=== PATIENT | female | born 1990 | race Hispanic/Latino ===

== ENCOUNTER 2017-11-16 12:41 | Emergency (ER) | payer SELFPAY ==
--- NOTE | 2017-11-16 16:19 | ER ---
Nurse's Notes [facility] Name: Maria Isabel Johnson Age: 27 yrs Sex: Female : 1990 Arrival Date: 11/16/2017 Time: 12:44 Bed 12 Private MD: None, None Diagnosis: Acute upper respiratory infection, unspecified Presentation: 11/16 12:49 Presenting complaint: Patient states: Flu symptoms for 3 days. Transition of care: aj patient was not received from another setting of care. Onset of symptoms was November 13, 2017. Care prior to arrival: None. 12:49 Method Of Arrival: Ambulatory 12:49 Acuity: SOLITARIO 4 aj Triage Assessment: 12:50 General: Appears in no apparent distress. comfortable, Behavior is calm, cooperative, aj appropriate for age. Pain: Denies pain. EENT: Reports nasal congestion nasal discharge. Neuro: Level of Consciousness is awake, alert, obeys commands, Oriented to person, place, time, situation. Respiratory: Reports cough that is Airway is patent Respiratory effort is even, unlabored, Respiratory pattern is regular, symmetrical. Derm: Skin is intact, is healthy with good turgor, Skin is pink, warm \T\ dry. normal. 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 - Social history:: Smoking status: Patient/guardian denies using tobacco. - Family history:: not pertinent. - Hospitalizations: : No recent hospitalization is reported. Screenin:20 Abuse screen: Denies threats or abuse. Denies injuries from another. Nutritional iw screening: No deficits noted. Tuberculosis screening: No symptoms or risk factors identified. Fall Risk None identified. Assessment: 16:00 General: Appears Behavior is calm, cooperative. Pain:. Neuro: Level of Consciousness is iw awake, alert, obeys commands, Oriented to person, place, time, situation, Moves all extremities. Full function. Cardiovascular: Capillary refill < 3 seconds in bilateral fingers Patient's skin is warm and dry. Respiratory: Respiratory effort is even, unlabored, Respiratory pattern is regular, symmetrical. GI: Derm: Skin is pink, warm \T\ dry. normal. Musculoskeletal: Range of motion: intact in all extremities. Vital Signs: 12:50 BP 143 / 94; Pulse 76; Resp 20; Temp 98.2; Pulse Ox 99% on R/A; Weight 99.79 kg; Height aj 5 ft. 1 in. (154.94 cm); Pain 0/10; 12:50 Body Mass Index 41.57 (99.79 kg, 154.94 cm) aj ED Course: 12:44 Patient arrived in ED. mr 12:44 None, None is Private Physician. mr 12:50 Triage completed. aj 12:50 Arm band placed on left wrist. Patient placed in waiting room, Patient notified of wait aj time. 13:00 Patient has correct armband on for positive identification. iw 15:12 Kimmy Bob, RN is Primary Nurse. iw 15:12 Art aCrbajal MD is Attending Physician. rn 16:28 No provider procedures requiring assistance completed. Patient did not have IV access iw during this emergency room visit. Administered Medications: No medications were administered Outcome: 16:18 Discharge ordered by MD. rn 16:28 Discharged to home ambulatory. iw 16:28 Condition: good 16:28 Discharge instructions given to patient, Instructed on discharge instructions, follow up and referral plans. Demonstrated understanding of instructions, follow-up care. 16:29 Patient left the ED. iw Signatures: Radha Sellers, RN Flora Stephenson Kimmy Bob, RN GRETCHEN Art Carbajal MD MD office rn: (The following items were deleted from the chart) 12:56 12:50 BP 143 / 94; Pulse 76bpm; Resp 20bpm; Pulse Ox 99% RA; 99.79 kg; Height 5 ft. 1 aj in.; BMI: 41.5; Pain 0/10; aj
--- NOTE | 2017-11-16 16:19 | EDPHYS ---
Physician Documentation [facility] Name: Maria Isabel Johnson Age: 27 yrs Sex: Female : 1990 Arrival Date: 11/16/2017 Time: 12:44 Bed 12 Private MD: None, None ED Physician Art Carbajal HPI: 11/16 15:36 This 27 yrs old Female presents to ER via Ambulatory with complaints of Flu rn Symptoms. 15:36 The patient or guardian reports cough, that is intermittent, described as mild, with no rn sputum, flu symptoms, myalgias. Severity of symptoms: At their worst the symptoms were mild, in the emergency department the symptoms are unchanged. Modifying factors: The symptoms are alleviated by nothing, the symptoms are aggravated by nothing. The patient has not experienced similar symptoms in the past. The patient has not recently seen a physician. Reports subjective fever, sore throat, runny nose, ears aching, for 3-4 days. . 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 - Social history:: Smoking status: Patient/guardian denies using tobacco. - Family history:: not pertinent. - Hospitalizations: : No recent hospitalization is reported. 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 Exam: 15:36 Constitutional: This is a well developed, well nourished patient who is awake, alert, rn and in no acute distress. Head/Face: Normocephalic, atraumatic. Eyes: Pupils equal round and reactive to light, extra-ocular motions intact. Lids and lashes normal. Conjunctiva and sclera are non-icteric and not injected. Cornea within normal limits. Periorbital areas with no swelling, redness, or edema. ENT: + mild tonsillar hypertrophy without exudate, no stridor, no oral lesions Neck: Trachea midline, no thyromegaly or masses palpated, and no cervical lymphadenopathy. Supple, full range of motion without nuchal rigidity, or vertebral point tenderness. No Meningismus. Cardiovascular: Regular rate and rhythm with a normal S1 and S2. No gallops, murmurs, or rubs. Normal PMI, no JVD. No pulse deficits. Respiratory: Lungs have equal breath sounds bilaterally, clear to auscultation and percussion. No rales, rhonchi or wheezes noted. No increased work of breathing, no retractions or nasal flaring. Abdomen/GI: Soft, non-tender, with normal bowel sounds. No distension or tympany. No guarding or rebound. No evidence of tenderness throughout. Skin: Warm, dry with normal turgor. Normal color with no rashes, no lesions, and no evidence of cellulitis. MS/ Extremity: Pulses equal, no cyanosis. Neurovascular intact. Full, normal range of motion. Equal circumference. Neuro: Awake and alert, GCS 15, oriented to person, place, time, and situation. Cranial nerves II-XII grossly intact. Motor strength 5/5 in all extremities. Sensory grossly intact. Cerebellar exam normal. Normal gait. Vital Signs: 12:50 BP 143 / 94; Pulse 76; Resp 20; Temp 98.2; Pulse Ox 99% on R/A; Weight 99.79 kg; Height aj 5 ft. 1 in. (154.94 cm); Pain 0/10; 12:50 Body Mass Index 41.57 (99.79 kg, 154.94 cm) aj MDM: 15:12 Patient medically screened. rn 16:17 Differential Diagnosis: Bronchitis Influenza Upper Respiratory Infection Pharyngitis rn Viral Syndrome. Data reviewed: vital signs, nurses notes, lab test result(s), and as a result, I will discharge patient. Counseling: I had a detailed discussion with the patient and/or guardian regarding: the historical points, exam findings, and any diagnostic results supporting the discharge/admit diagnosis, lab results, the need for outpatient follow up, to return to the emergency department if symptoms worsen or persist or if there are any questions or concerns that arise at home. Special discussion: I discussed with the patient/guardian in detail that at this point there is no indication for admission to the hospital. It is understood, however, that if the symptoms persist or worsen the patient needs to return immediately for re-evaluation. ED course: Recommended afrin for viral syndrome/URI. 11/16 15:19 Order name: Flu rn 11/16 15:19 Order name: Strep rn 11/16 15:59 Order name: Influenza Screen (A ; Complete Time: 16:17 EDMS 11/16 15:59 Order name: Group A Streptococcus Rapid Sc; Complete Time: 16:17 EDMS Administered Medications: No medications were administered Disposition: 11/16/17 16:18 Discharged to Home. Impression: Acute upper respiratory infection, unspecified. - Condition is Stable. - Discharge Instructions: Upper Respiratory Infection, Adult, Viral Infections. - Work release form, Medication Reconciliation Form, Thank You Letter, Antibiotic Education, Prescription Opioid Use form. - Follow up: Private Physician; When: As needed; Reason: Recheck today's complaints, Re-evaluation by your physician. - Problem is new. - Symptoms have improved. Signatures: Dispatcher [employer] Radha Arango RN RN aj Williams, Irene, RN RN iw Nieto, Roman, MD MD rn
[2017-11-16 16:52] VITALS: BP 143/94; TEMP 98.2; O2SAT 99
== END 2017-11-16 16:29 | disposition home or self-care (01) ==
LOC: ER 12:41
DX: J06.9 Acute upper respiratory infection, unspecified (principal)
CPT/HCPCS: 87070; 87081; 87804; 99281

== ENCOUNTER 2018-03-23 20:30 | Emergency (ER) | payer SELFPAY ==
--- NOTE | 2018-03-23 20:59 | ER ---
Nurse's Notes [facility] Name: Maria Isabel Johnson Age: 27 yrs Sex: Female : 1990 Arrival Date: 03/23/2018 Time: 20:33 Bed 14 Private MD: None, None Diagnosis: Cellulitis of left external ear Presentation: 03/23 20:45 Presenting complaint: Patient states: left ear pain X1 week after swimming. pt took ak1 amoxicillin with no relief. Transition of care: patient was not received from another setting of care. Onset of symptoms is unknown. Risk Assessment: Do you want to hurt yourself or someone else? Patient reports no desire to harm self or others. Care prior to arrival: None. 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 - Social history:: Smoking status: Patient uses tobacco products, denies chronic smoking, but will smoke occasionally. - Ebola Screening: : No symptoms or risks identified at this time. Screenin:55 Abuse screen: Denies threats or abuse. Denies injuries from another. Nutritional aa1 screening: No deficits noted. Tuberculosis screening: No symptoms or risk factors identified. Fall Risk None identified. Assessment: 20:55 General: Appears in no apparent distress. comfortable, Behavior is calm, cooperative, aa1 appropriate for age. Pain: Complains of pain in left ear Pain began 1 week ago Is continuous. Neuro: Level of Consciousness is awake, alert, obeys commands, Oriented to person, place, time, situation, Gait is steady, Speech is normal. Respiratory: Airway is patent Respiratory effort is even, unlabored, Respiratory pattern is regular, symmetrical. GI: No signs and/or symptoms were reported involving the gastrointestinal system. : No signs and/or symptoms were reported regarding the genitourinary system. EENT: Reports pain in left ear. Derm: Skin is intact, is healthy with good turgor, Skin is pink, warm \T\ dry. Musculoskeletal: Circulation, motion, and sensation intact. Capillary refill < 3 seconds. 21:04 Reassessment: Patient appears in no apparent distress at this time. Patient is alert, aa1 oriented x 3, equal unlabored respirations, skin warm/dry/pink. Discussed d/c \T\ f/u instructions with pt; denies questions or concerns at this time. Vital Signs: 20:44 BP 146 / 97; Pulse 77; Resp 18; Temp 98.5(O); Pulse Ox 100% on R/A; Weight 122.47 kg ak1 (R); Height 5 ft. 1 in. (154.94 cm) (R); Pain 10/10; 20:44 Body Mass Index 51.02 (122.47 kg, 154.94 cm) ak1 ED Course: 20:33 Patient arrived in ED. es 20:33 None, None is Private Physician. es 20:45 Triage completed. ak1 20:46 Arm band placed on Patient placed in an exam room, on a stretcher, Patient notified of ak1 wait time. 20:47 Samir Templeton NP is PHCP. pm1 20:47 Chicho Riojas MD is Attending Physician. pm1 20:55 Patient has correct armband on for positive identification. Bed in low position. Call aa1 light in reach. Pulse ox on. NIBP on. 20:59 Capri Jo, GRETCHEN is Primary Nurse. aa1 20:59 Ree Hester MD is Referral Physician. pm1 21:04 No provider procedures requiring assistance completed. Patient did not have IV access aa1 during this emergency room visit. Administered Medications: No medications were administered Outcome: 20:59 Discharge ordered by . pm1 21:04 Discharged to home ambulatory. aa1 21:04 Condition: good 21:04 Discharge instructions given to patient, Instructed on discharge instructions, follow up and referral plans. medication usage, Demonstrated understanding of instructions, follow-up care, medications, Prescriptions given X 2. 21:07 Patient left the ED. aa1 Signatures: Capri Jo, RN RN aa1 Sophia Simon Amber, RN RN ak1 Samir Templeton, JONG SAILMAKER pm1
--- NOTE | 2018-03-23 20:59 | EDPHYS ---
Physician Documentation [facility] Name: Maria Isabel Johnson Age: 27 yrs Sex: Female : 1990 Arrival Date: 03/23/2018 Time: 20:33 Bed 14 Private MD: None, None ED Physician Chicho Riojas HPI: 03/23 20:54 This 27 yrs old Female presents to ER via Ambulatory with complaints of Left pm1 Ear Pain. 20:54 The patient presents with pain. The complaints affect the left ear. Onset: The pm1 symptoms/episode began/occurred 1 week(s) ago. Modifying factors: The symptoms are alleviated by nothing, the symptoms are aggravated by pulling on ears, touching. Associated signs and symptoms: Pertinent negatives: fever, tinnitus, Hearing difficulty. Severity of symptoms: in the emergency department the symptoms are worse. The patient has not experienced similar symptoms in the past. The patient has not recently seen a physician, and does not have an established primary care provider. Patient has been taking antibiotic given to her by her grandmother. patient took PCN without improvement. 20:54 Onset after swimming at the beach. 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 - Social history:: Smoking status: Patient uses tobacco products, denies chronic smoking, but will smoke occasionally. - Ebola Screening: : No symptoms or risks identified at this time. ROS: 20:54 Constitutional: Negative for fever, chills, and weight loss, Eyes: Negative for injury, pm1 pain, redness, and discharge. 20:54 Neck: Negative for injury, pain, and swelling, Cardiovascular: Negative for chest pain, palpitations, and edema, Respiratory: Negative for shortness of breath, cough, wheezing, and pleuritic chest pain, Abdomen/GI: Negative for abdominal pain, nausea, vomiting, diarrhea, and constipation, Back: Negative for injury and pain, MS/Extremity: Negative for injury and deformity, Skin: Negative for injury, rash, and discoloration, Neuro: Negative for headache, weakness, numbness, tingling, and seizure. 20:54 ENT: Positive for ear pain, Negative for drainage from ear(s), hearing loss, rhinorrhea, sore throat. Exam: 20:54 Constitutional: This is a well developed, well nourished patient who is awake, alert, pm1 and in no acute distress. Head/Face: Normocephalic, atraumatic. Eyes: Pupils equal round and reactive to light, extra-ocular motions intact. Lids and lashes normal. Conjunctiva and sclera are non-icteric and not injected. Cornea within normal limits. Periorbital areas with no swelling, redness, or edema. 20:54 Neck: Trachea midline, no thyromegaly or masses palpated, and no cervical lymphadenopathy. Supple, full range of motion without nuchal rigidity, or vertebral point tenderness. No Meningismus. Chest/axilla: Normal chest wall appearance and motion. Nontender with no deformity. No lesions are appreciated. Cardiovascular: Regular rate and rhythm with a normal S1 and S2. No gallops, murmurs, or rubs. Normal PMI, no JVD. No pulse deficits. Respiratory: Lungs have equal breath sounds bilaterally, clear to auscultation and percussion. No rales, rhonchi or wheezes noted. No increased work of breathing, no retractions or nasal flaring. Back: No spinal tenderness. No costovertebral tenderness. Full range of motion. MS/ Extremity: Pulses equal, no cyanosis. Neurovascular intact. Full, normal range of motion. 20:54 ENT: External ear(s): abscess, is not appreciated, cellulitis, of the posterior aspect of the pinna of left ear, Ear canal(s): are normal, cerumen impaction, TM's: not visable, because of cerumen, left ear, Examination of the other ear shows no obvious abnormality, Mouth: is normal, no acute changes, Posterior pharynx: is normal, airway is patent, no acute changes, Tonsils: are normal in appearance. 20:54 Skin: Appearance: normal except for affected area, left ear as noted above. 20:54 Neuro: Orientation: is normal, Motor: moves all fours. Vital Signs: 20:44 BP 146 / 97; Pulse 77; Resp 18; Temp 98.5(O); Pulse Ox 100% on R/A; Weight 122.47 kg ak1 (R); Height 5 ft. 1 in. (154.94 cm) (R); Pain 10/10; 20:44 Body Mass Index 51.02 (122.47 kg, 154.94 cm) ak1 MDM: 20:48 Patient medically screened. pm1 20:58 Data reviewed: vital signs. Data interpreted: Pulse oximetry: on room air is 100 %. pm1 Interpretation: normal. Counseling: I had a detailed discussion with the patient and/or guardian regarding: the historical points, exam findings, and any diagnostic results supporting the discharge/admit diagnosis, the need for outpatient follow up, to return to the emergency department if symptoms worsen or persist or if there are any questions or concerns that arise at home. 20:58 Differential diagnosis: otitis media, otitis externa, foreign body, cerumen impaction. pm1 21:01 ED course: Onset after swimming at the beach. Will discharge with doxycycline for pm1 vibrio and MRSA coverage. Administered Medications: No medications were administered Disposition: 22:21 Co-signature as Attending Physician, Chicho Riojas MD. flor Disposition: 03/23/18 20:59 Discharged to Home. Impression: Cellulitis of left external ear. - Condition is Stable. - Discharge Instructions: Cellulitis, Adult. - Prescriptions for Tylenol- Codeine #3 300-30 mg Oral Tablet - take 2 tablets by ORAL route every 6 hours As needed; 20 tablet. Doxycycline Hyclate 100 mg Oral Tablet - take 1 tablet by ORAL route every 12 hours; 20 tablet. - Medication Reconciliation Form, Thank You Letter, Antibiotic Education, Prescription Opioid Use form. - Follow up: Emergency Department; When: As needed; Reason: Worsening of condition. Follow up: Ree Hester MD; When: 2 - 3 days; Reason: Recheck today's complaints, Continuance of care, Re-evaluation by your physician. - Problem is new. - Symptoms have improved. Signatures: Capri Jo RN RN aa1 Chicho Riojas MD MD pkLucy Chapman RN RN ak1 Samir Templeton, LEAD CARGO MOVER LEAD CARGO MOVER pm1 Corrections: (The following items were deleted from the chart) 21:07 20:59 03/23/2018 20:59 Discharged to Home. Impression: Cellulitis of left external ear. aa1 Condition is Stable. Forms are Medication Reconciliation Form, Thank You Letter, Antibiotic Education, Prescription Opioid Use. Follow up: Emergency Department; When: As needed; Reason: Worsening of condition. Follow up: Ree Hester; When: 2 - 3 days; Reason: Recheck today's complaints, Continuance of care, Re-evaluation by your physician. Problem is new. Symptoms have improved. pm1
[2018-03-23 21:12] VITALS: BP 146/97; TEMP 98.5; O2SAT 100
== END 2018-03-23 21:07 | disposition home or self-care (01) ==
LOC: ER 20:30
DX: H60.12 Cellulitis of left external ear (principal); Z72.0 Tobacco use
CPT/HCPCS: 99283

== ENCOUNTER 2018-05-06 01:38 | Emergency (ER) | payer SELFPAY ==
--- NOTE | 2018-05-06 01:59 | EDPHYS ---
Physician Documentation [facility] Name: Maria Isabel Johnson Age: 27 yrs Sex: Female : 1990 Arrival Date: 05/06/2018 Time: 01:40 Bed 7 Private MD: ED Physician Art Carbajal HPI: 05/06 01:56 This 27 yrs old Female presents to ER via Ambulatory with complaints of Leg jr8 Swelling, Tattoo infection. 01:56 Patient had tattoo done on Thursday. Now having erythema and swelling around tattoo jr8 extending down leg . Onset: The symptoms/episode began/occurred gradually, 2 day(s) ago. Severity of symptoms: At their worst the symptoms were moderate in the emergency department the symptoms are unchanged. The patient has not experienced similar symptoms in the past. The patient has not recently seen a physician. STAFFING RN: 01:56 LMP 05/01/2018 lp1 Historical: - Allergies: 01:56 NKA; lp1 - Home Meds: 01:56 None [Active]; lp1 - PMHx: 01:56 None; lp1 - PSHx: 01:56 None; lp1 - Immunization history:: Adult Immunizations up to date. - Social history:: Smoking status: Patient/guardian denies using tobacco. - Ebola Screening: : No symptoms or risks identified at this time. ROS: 01:56 Eyes: Negative for injury, pain, redness, and discharge, ENT: Negative for injury, jr8 pain, and discharge, Neck: Negative for injury, pain, and swelling, Cardiovascular: Negative for chest pain, palpitations, and edema, Respiratory: Negative for shortness of breath, cough, wheezing, and pleuritic chest pain, Abdomen/GI: Negative for abdominal pain, nausea, vomiting, diarrhea, and constipation, Back: Negative for injury and pain, MS/Extremity: Negative for injury and deformity, Neuro: Negative for headache, weakness, numbness, tingling, and seizure. 01:56 Skin: Positive for cellulitis, erythema, of the left lateral leg near ankle . Exam: 01:56 Cardiovascular: Regular rate and rhythm with a normal S1 and S2. No gallops, murmurs, jr8 or rubs. Normal PMI, no JVD. No pulse deficits. Respiratory: Lungs have equal breath sounds bilaterally, clear to auscultation and percussion. No rales, rhonchi or wheezes noted. No increased work of breathing, no retractions or nasal flaring. Back: No spinal tenderness. No costovertebral tenderness. Full range of motion. MS/ Extremity: Pulses equal, no cyanosis. Neurovascular intact. Full, normal range of motion. Neuro: Awake and alert, GCS 15, oriented to person, place, time, and situation. Cranial nerves II-XII grossly intact. Motor strength 5/5 in all extremities. Sensory grossly intact. Cerebellar exam normal. Normal gait. 01:56 Skin: Patient has erythema around tattoo. Erythema and swelling extends into lateral ankle and proximal foot . Vital Signs: 01:56 BP 138 / 96; Pulse 72; Resp 18; Temp 97(TE); Pulse Ox 99% on R/A; Weight 122.47 kg; lp1 Height 5 ft. 1 in. (154.94 cm); Pain 7/10; 01:56 Body Mass Index 51.02 (122.47 kg, 154.94 cm) lp1 MDM: 01:47 Patient medically screened. jr8 01:56 Data reviewed: vital signs, nurses notes, and as a result, I will discharge patient. jr8 Data interpreted: Pulse oximetry: on room air is 100 %. Interpretation: normal. Counseling: I had a detailed discussion with the patient and/or guardian regarding: the historical points, exam findings, and any diagnostic results supporting the discharge/admit diagnosis, the need for outpatient follow up, a family practitioner, to return to the emergency department if symptoms worsen or persist or if there are any questions or concerns that arise at home. 05/06 01:59 Order name: Wound Culture jr8 Administered Medications: No medications were administered Disposition: 04:49 Co-signature as Attending Physician, Art Carbajal MD. rn Disposition: 05/06/18 01:59 Discharged to Home. Impression: Cellulitis of left lower limb. - Condition is Stable. - Discharge Instructions: Cellulitis, Adult. - Prescriptions for Bactrim DS 800- 160 mg Oral Tablet - take 1 tablet by ORAL route every 12 hours for 10 days; 20 tablet. Doxycycline Monohydrate 100 mg Oral Tablet - take 1 tablet by ORAL route every 12 hours for 10 days; 20 tablet. - Medication Reconciliation Form, Thank You Letter, Antibiotic Education, Prescription Opioid Use form. - Follow up: Private Physician; When: 2 - 3 days; Reason: Wound Recheck, If symptoms return, Recheck today's complaints, Continuance of care, Re-evaluation by your physician. - Problem is new. - Symptoms have improved. Signatures: Dispatcher [employer] EDMS Art Carbajal MD MD rn Krystin Kan RN RN lp1 Rafy Kirk PA PA jr8 Corrections: (The following items were deleted from the chart) 02:05 01:59 05/06/2018 01:59 Discharged to Home. Impression: Cellulitis of left lower limb. lp1 Condition is Stable. Forms are Medication Reconciliation Form, Thank You Letter, Antibiotic Education, Prescription Opioid Use. Follow up: Private Physician; When: 2 - 3 days; Reason: Wound Recheck, If symptoms return, Recheck today's complaints, Continuance of care, Re-evaluation by your physician. Problem is new. Symptoms have improved. jr8
--- NOTE | 2018-05-06 01:59 | ER ---
Nurse's Notes [facility] Name: Maria Isabel Johnson Age: 27 yrs Sex: Female : 1990 Arrival Date: 05/06/2018 Time: 01:40 Bed 7 Private MD: Diagnosis: Cellulitis of left lower limb Presentation: 05/06 01:54 Presenting complaint: Patient states: Had tattoo done on Thursday night in [place] lp1 to left ankle; States pain and increased swelling to ankle since; Denies any fever. Transition of care: patient was not received from another setting of care. Onset of symptoms was May 06, 2018. Risk Assessment: Do you want to hurt yourself or someone else? Patient reports no desire to harm self or others. Initial Sepsis Screen: Does the patient meet any 2 criteria? No. Patient's initial sepsis screen is negative. Does the patient have a suspected source of infection? No. Patient's initial sepsis screen is negative. Care prior to arrival: None. 01:54 Method Of Arrival: Ambulatory lp1 01:54 Acuity: SOLITARIO 4 lp1 FOIL OPERATOR: 01:56 LMP 05/01/2018 lp1 Historical: - Allergies: 01:56 NKA; lp1 - Home Meds: 01:56 None [Active]; lp1 - PMHx: 01:56 None; lp1 - PSHx: 01:56 None; lp1 - Immunization history:: Adult Immunizations up to date. - Social history:: Smoking status: Patient/guardian denies using tobacco. - Ebola Screening: : No symptoms or risks identified at this time. Screenin:00 Abuse screen: Denies threats or abuse. Denies injuries from another. Nutritional lp1 screening: No deficits noted. Tuberculosis screening: No symptoms or risk factors identified. Fall Risk None identified. Assessment: 01:57 General: Appears in no apparent distress. Behavior is calm, cooperative, appropriate lp1 for age. Pain: Complains of pain in left lateral ankle Pain currently is 7 out of 10 on a pain scale. Neuro: Level of Consciousness is awake, alert, obeys commands. Cardiovascular: No deficits noted. Respiratory: No deficits noted. GI: No deficits noted. : No deficits noted. EENT: No deficits noted. Derm: Wound noted left lateral ankle Wound is redness, swelling, and drainage around site. Musculoskeletal: Circulation, motion, and sensation intact. Vital Signs: 01:56 BP 138 / 96; Pulse 72; Resp 18; Temp 97(TE); Pulse Ox 99% on R/A; Weight 122.47 kg; lp1 Height 5 ft. 1 in. (154.94 cm); Pain 7/10; 01:56 Body Mass Index 51.02 (122.47 kg, 154.94 cm) lp1 ED Course: 01:40 Patient arrived in ED. am2 01:47 [facility] jr8 01:47 Art Carbajal MD is Attending Physician. jr8 01:54 Krystin Kan, RN is Primary Nurse. lp1 01:56 Triage completed. lp1 01:57 Arm band placed on right wrist. lp1 02:01 Patient has correct armband on for positive identification. lp1 02:01 No provider procedures requiring assistance completed. Patient did not have IV access lp1 during this emergency room visit. Administered Medications: No medications were administered Outcome: 01:59 Discharge ordered by . jr8 02:04 Discharged to home ambulatory. lp1 02:04 Condition: good 02:04 Discharge instructions given to patient, Instructed on discharge instructions, follow up and referral plans. medication usage, Demonstrated understanding of instructions, follow-up care, medications, Prescriptions given X 2. 02:05 Patient left the ED. lp1 Addendum: 05/10/2018 07:53 Addendum: Culture Results: Positive wound culture. No further action required. Bacteria i w sensitive to prescribed antibiotic. Signatures: Kimmy Bob RN RN Krystin Kan RN RN lp Rafy Kirk PA PA jr Radha Briseno am2
[2018-05-06 02:10] VITALS: BP 138/96; TEMP 97; O2SAT 99
== END 2018-05-06 02:05 | disposition home or self-care (01) ==
LOC: ER 01:38
DX: L03.116 Cellulitis of left lower limb (principal)
CPT/HCPCS: 87070; 87077; 87186; 87205; 99282

== ENCOUNTER 2018-05-30 16:08 | Inpatient (IN) | payer SELFPAY ==
[2018-05-30] MEDS ORDERED: RSI MEDICATION KIT IV ONE (16:16)
[2018-05-30] MEDS ORDERED: SUCCINYLCHOLINE 20 MG/ML (10 ML) IV ONE (16:21)
[2018-05-30] MEDS ORDERED: LORazepam 2 MG/ML VIAL ONE (16:30)
[2018-05-30] MEDS ORDERED: PROPOFOL 1,000 MG/100 ML VIAL IV ONE (16:47)
[2018-05-30] MEDS ORDERED: VECURONIUM 10 MG/VIAL IV ONE (16:48)
[2018-05-30] MEDS ORDERED: ALBUTEROL 2.5 MG/3 ML NEB SOL ONE (16:55)
[2018-05-30] MEDS ORDERED: IPRATROPIUM BROM 0.5MG/2.5ML ONE (16:55)
[2018-05-30 16:58] LABS: Protime INR 1.07
--- NOTE | 2018-05-30 17:02 | RAD REPORT ---
EXAM DESCRIPTION: RAD - Chest Single View - 05/30/2018 4:55 pm CLINICAL HISTORY: POST ETT Chest pain. COMPARISON: ABDOMEN 1 VIEW KUB dated 09/09/2012 FINDINGS: Portable technique limits examination quality. The tip of the ET tube is in the right mainstem bronchus. Left lung atelectasis is present. Cardiac s ize is not well assessed. IMPRESSION: Right mainstem intubation.
--- NOTE | 2018-05-30 17:03 | RAD REPORT ---
EXAM DESCRIPTION: RAD - Chest Single View - 05/30/2018 4:55 pm CLINICAL HISTORY: et tube placement Chest pain. COMPARISON: Chest Single View dated 05/30/2018; ABDOMEN 1 VIEW KUB dated 09/09/2012 FINDINGS: Portable technique limits examination quality. The ET tube has been retracted somewhat but is still within the right mainstem bronchus. NG tube coil s in the stomach. Significant atelectasis involving the left lung. Cardiac size not well assessed. No displaced fractures.
[2018-05-30 17:04] LABS: Absolute Lymphocytes (CBC) 3.3 K/uL (0.7-4.9); Absolute Monocytes 1.3 K/uL (0.1-1.3); Absolute Neutrophil 12.1 K/uL (1.8-8.0); Basophils % 0.2 % (0-1.3); Eosinophils % 0.3 % (0-4.4); Hematocrit 42.1 % (36.0-45.0); Lymphocytes % 19.5 % (15.3-44.8); MCH 32.6 pg (27.0-35.0); MCV 95.2 fL (80-100); RBC Red Blood Cell Count 4.42 M/uL (3.86-4.86)
[2018-05-30 17:23] LABS: ALT/SGPT 29 U/L (12-78); AST/SGOT 13 U/L (15-37); Albumin 3.8 g/dL (3.4-5.0); Alkaline Phosphatase 93 U/L (45-117); BUN Blood Urea Nitrogen 17 mg/dL (7-18); Bicarbonate 27 mmol/L (21-32); Bilirubin Direct < 0.1 mg/dL (0-0.2); Bilirubin Total 0.3 mg/dL (0.2-1.0); Glucose Level 113 mg/dL (74-106); Potassium 4.1 mmol/L (3.5-5.1); Protein, Total 8.4 g/dL (6.4-8.2); Sodium Level 141 mmol/L (136-145)
[2018-05-30 17:36] LABS: Barbiturates NEGATIVE (NEGATIVE); Benzodiazepines NEGATIVE (NEGATIVE); Cocaine NEGATIVE (NEGATIVE); METHAMPHETAM NEGATIVE (NEGATIVE); Methadone NEGATIVE (NEGATIVE); Opiates NEGATIVE (NEGATIVE); Phencyclidine NEGATIVE (NEGATIVE); THC Cannibis POSITIVE (NEGATIVE)
--- NOTE | 2018-05-30 17:45 | RAD REPORT ---
EXAM DESCRIPTION: CT - Head Brain Wo Cont - 05/30/2018 5:39 pm CLINICAL HISTORY: unresponsive, OD Drowsiness COMPARISON: <Comparisons> TECHNIQUE: All CT scans are performed using dose optimization technique as appropriate and may inclu de automated exposure control or mA/KV adjustment according to patient size. FINDINGS: No intracranial hemorrhage, hydrocephalus or extra-axial fluid collection.No areas of brai n edema or evidence of midline shift. The paranasal sinuses and mastoids are clear. The calvarium is intact. Nasogastric tube noted. IMPRESSION: No acute intracranial abnormality.
[2018-05-30 18:01] LABS: Arterial Blood Carboxyhemoglob 0.9 % (0-1.5); Blood Gas Oxyhemoglobin 90.9 % (94-97); Blood O2 Saturation 92.6 % (92-98.5)
--- NOTE | 2018-05-30 18:04 | ER ---
Nurse's Notes [facility] Name: Maria Isabel Johnson Age: 27 yrs Sex: Female : 1990 Arrival Date: 05/30/2018 Time: 16:20 Bed 3 Private MD: Diagnosis: Poisoning by unspecified drugs primarily affecting the autonomic nervous system, intentional self-harm;Acute respiratory failure Presentation: 05/30 16:10 Presenting complaint: EMS states: Patient's boyfriend reports that patient took an aj unknown number or sleeping pills or muscle relaxers. Last seen normal at 1320 by mother. Patient was unresponsive with relax respiartions upon EMS arrival. Onset of symptoms is unknown. Care prior to arrival: Medication(s) given: Narcan 2mg IVP IV initiated. 20 GA, in the left antecubital area, Glucose check: 168 Oxygen administered. via AMBU bag. 16:26 Transition of care: patient was not received from another setting of care. Initial aj Sepsis Screen: Does the patient meet any 2 criteria? No. Patient's initial sepsis screen is negative. Does the patient have a suspected source of infection? No. Patient's initial sepsis screen is negative. 16:26 Method Of Arrival: EMS: [facility] 16:26 Acuity: SOLITARIO 1 aj 17:15 Risk Assessment: Do you want to hurt yourself or someone else? Other: Patient's family aj reported to physician that they believe this was a suicide attempt. Triage Assessment: 16:10 General: Appears obese, Behavior is unresponsive. Pain: Unable to use pain scale. aj Patient is unresponsive. Neuro: Level of Consciousness is unresponsive, Oriented to none Reaction to noxious stimuli is withdrawal. Respiratory: Airway is compromised Respiratory effort is relaxed, Respiratory pattern is hypoventilation the patient has severe shortness of breath. 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 Derm: Skin is intact, is healthy with good turgor, Skin is pink, warm \T\ dry. normal. Historical: - Allergies: 16:29 NKA; aj - PSHx: 16:29 None; aj - Immunization history:: Adult Immunizations unknown. - Social history:: Smoking status: unknown. - Ebola Screening: : Patient negative for fever greater than or equal to 101.5 degrees Fahrenheit, and additional compatible Ebola Virus Disease symptoms Patient denies exposure to infectious person Patient denies travel to an Ebola-affected area in the 21 days before illness onset No symptoms or risks identified at this time. Screenin:10 Abuse screen: Denies threats or abuse. Denies injuries from another. aj 17:18 Nutritional screening: unable to assess at this time, pt intubated, appears overweight. la1 Tuberculosis screening: unable to assess at this time, pt intubated. Fall Risk No secondary diagnosis (0 pts). IV access (20 points). Ambulatory Aid- None/Bed Rest/Nurse Assist (0 pts). Gait- Normal/Bed Rest/Wheelchair (0 pts) Total Castillo Fall Scale indicates Low Risk Score (25-44 pts). Side Rails Up X 2. Assessment: 16:15 Reassessment: No changes from previously documented assessment. aj 16:38 Reassessment: Family stated to registration that they believe the patient took Baclofen.aj 17:10 Reassessment: No changes from previously documented assessment. aj 18:10 Reassessment: Boyfriend is at bedside speaking with Dr Obregon. aj 19:45 Reassessment: No changes from previously documented assessment. aj Vital Signs: 16:08 BP 131 / 70; Pulse 46; Resp 18 A; Pulse Ox 82% on BVM; Weight 102.06 kg; Height 5 ft. 8 aj in. (172.72 cm); 16:12 BP 131 / 70; Pulse 39; Resp 18; Pulse Ox 98% on BVM; aj 16:17 BP 165 / 105; Pulse 86; Resp 18; Pulse Ox 86% on ETT ambu; aj 16:20 BP 146 / 98; Pulse 91; Resp 16 A; Pulse Ox 90% on ETT ambu; aj 17:10 BP 102 / 66; Pulse 75; Resp 16; Temp 93.9(C); Pulse Ox 100% on ETT vent; aj 17:26 BP 132 / 66; Pulse 64; Resp 16; Temp 94.4(C); Pulse Ox 100% on ETT vent; aj 17:43 BP 114 / 72; Pulse 72; Resp 16 A; Temp 94.5; Pulse Ox 100% on ETT vent; aj 18:11 BP 99 / 67; Pulse 56; Resp 16; Temp 94.7; Pulse Ox 100% on ETT vent; aj 18:13 BP 102 / 75; Pulse 56; Resp 16; Pulse Ox 100% on ETT vent; aj 18:32 BP 100 / 70; Pulse 54; Resp 16; Temp 94.9; Pulse Ox 100% on ETT vent; aj 18:57 BP 103 / 64; Pulse 53; Resp 16; Temp 95.3; Pulse Ox 100% on ETT vent; aj 19:20 BP 116 / 74; Pulse 82; Resp 16; Temp 95.7; Pulse Ox 100% on ETT vent; aj 16:08 Body Mass Index 34.21 (102.06 kg, 172.72 cm) aj Keo Coma Score: 16:07 Eye Response: none(1). Verbal Response: none(1). Motor Response: none(1). Total: 3. aj ED Course: 16:07 Suctioned orally Placed oral airway: Assist ventilation with Ambu bag. aj 16:10 Arm band placed on right wrist. Patient placed in an exam room. aj 16:15 Inserted saline lock: 20 gauge in right antecubital area, using aseptic technique. aj Blood collected. By JPB. 16:17 Assisted provider with intubation using 7.5 mm ETT via oral route. ET tube secured at aj 23cm at the teeth. Set up intubation tray. Intubated by Konstantin Nunn MD Placement verified by CXR, CO2 detector w/ + color change, auscultating bilateral breath sounds. 16:20 Patient arrived in ED. em 16:23 Radha Sellers, RN is Primary Nurse. aj 16:25 Konstantin Nunn MD is Private Physician. rh1 16:26 Konstantin Nunn MD is Attending Physician. rh1 16:29 Triage completed. aj 16:50 Initial lab(s) drawn, by ct, sent to lab. EKG done, by ED staff, reviewed by Konstantin Nunn MD. 16:55 CXR XRAY In Process Unspecified. EDMS 16:56 XRAY CXR (1 view) In Process Unspecified. EDMS 17:13 Urine collected: Quigley catheter specimen, cloudy, jennifer colored. jb1 17:16 Placed in gown. Bed in low position. Call light in reach. Side rails up X2. Cardiac la1 monitor on. Pulse ox on. NIBP on. 17:16 NGT: inserted 16 Fr. via right nare. verified placement of air over stomach, verified la1 return of gastric contents, Placement verified by X-ray, to intermittent suction. Patient tolerated well. 17:19 Large amount of BM cleaned from patient. aj 17:39 CT Head Brain wo Cont In Process Unspecified. EDMS 17:43 CT completed. Pt tolerated procedure poorly. Patient moved to CT via stretcher. Patient eh moved back from CT. 17:55 XRAY CXR (1 view) In Process Unspecified. EDMS 18:00 Lalitha Obregon MD is Hospitalizing Provider. 19:45 Report given to Maria GODINEZ. aj 19:45 Patient admitted, IV remains in place. intact. aj Administered Medications: 16:12 Drug: Atropine 0.5 mg Route: IVP; Site: left antecubital; aj 17:17 Follow up: Response: HR increased la1 16:13 Drug: Atropine 0.5 mg Route: IVP; Site: left antecubital; aj 17:16 Follow up: Response: HR increased la1 16:15 Drug: Succinylcholine 120 mg Route: IVP; Site: left antecubital; aj 17:17 Follow up: Response: Pt sedated la1 16:26 Drug: Ativan 1 mg Route: IVP; Site: left antecubital; aj 17:17 Follow up: Response: No adverse reaction; Pt sedated la1 16:44 Drug: VecuroNIUM 10 mg Route: IVP; Site: right antecubital; aj 17:17 Follow up: Response: Pt paralyzed la1 16:45 Drug: Propofol 8 mcg/kg/min Route: IV; Rate: calculated rate; Site: right antecubital; la1 19:48 Follow up: IV Status: Infusion continued upon admission aj 16:55 Drug: Albuterol - atroVENT (3:1) (2.5 mg - 0.5 mg) 3 ml Route: Nebulizer; aj 17:17 Follow up: Response: No adverse reaction la1 19:15 Drug: Atropine 0.5 mg Route: IVP; Site: right antecubital; aj 19:48 Follow up: Response: Cardiac rhythm changed aj Outcome: 18:03 Decision to Hospitalize by Provider. 19:45 Admitted to ICU accompanied by nurse, accompanied by tech, via stretcher, room 3, with aj oxygen, on monitor, with chart, Report called to Maria GODINEZ 19:45 critical 19:45 Instructed on the need for admit. 19:49 Patient left the ED. aj Signatures: Dispatcher [employer] Pranav Teran jb1 Radha Sellers RN RN Kumar Berger Edgar, CASE PLANNER CASE PLANNER Hernan Meeks RN RN la1 Jeimy Perez, WOOD HEEL FINISHER WOOD HEEL FINISHER rh1 Konstantin Nunn MD MD gs Corrections: (The following items were deleted from the chart) 16:32 16:26 Care prior to arrival: IV initiated. 20 GA, in the left antecubital area, Glucose aj check: 168 Oxygen administered. via AMBU bag aj :34 16:29 General: Appears obese, Behavior is unresponsive. aj aj :34 16:29 Pain: Unable to use pain scale. Patient is unresponsive. 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 aj normal, aj :34 16:29 : urinary incontinence aj aj 16:35 16:26 Presenting complaint: EMS states: Patient's boyfriend reports that patient took aj an unknown number or sleeping pills or muscle relaxers. Last seen normal at 1320 by mother. Patient was unresponsive with relax respiartions upon EMS arrival. aj :35 16:26 Onset of symptoms is unknown. aj aj :35 16:26 Care prior to arrival: Medication(s) given: Narcan 2mg IVP IV initiated. 20 GA, aj in the left antecubital area, Glucose check: 168 Oxygen administered. via AMBU bag aj
--- NOTE | 2018-05-30 18:04 | EDPHYS ---
Physician Documentation [facility] Name: Maria Isabel Johnson Age: 27 yrs Sex: Female : 1990 Arrival Date: 05/30/2018 Time: 16:20 Bed 3 Private MD: ED Physician Konstantin Nunn HPI: 05/30 17:52 This 27 yrs old Female presents to ER via EMS with complaints of Overdose. gs 17:52 The patient presents to the emergency department after a known overdose, that was gs intentional. Unable to obtain HPI due to comatose state. Historical: - Allergies: 16:29 NKA; aj - PSHx: 16:29 None; aj - Immunization history:: Adult Immunizations unknown. - Social history:: Smoking status: unknown. - Ebola Screening: : Patient negative for fever greater than or equal to 101.5 degrees Fahrenheit, and additional compatible Ebola Virus Disease symptoms Patient denies exposure to infectious person Patient denies travel to an Ebola-affected area in the 21 days before illness onset No symptoms or risks identified at this time. ROS: 17:52 Unable to obtain ROS due to comatose state. gs Exam: 17:06 ECG was reviewed by the Attending Physician. gs 17:52 Head/Face: Normocephalic, atraumatic. Eyes: Pupils equal round and reactive to light, gs extra-ocular motions intact. Lids and lashes normal. Conjunctiva and sclera are non-icteric and not injected. Cornea within normal limits. Periorbital areas with no swelling, redness, or edema. ENT: Nares patent. No nasal discharge, no septal abnormalities noted. Tympanic membranes are normal and external auditory canals are clear. Oropharynx with no redness, swelling, or masses, exudates, or evidence of obstruction, uvula midline. Mucous membranes moist. Neck: Trachea midline, no thyromegaly or masses palpated, and no cervical lymphadenopathy. Supple, full range of motion without nuchal rigidity, or vertebral point tenderness. No Meningismus. Chest/axilla: Normal chest wall appearance and motion. Nontender with no deformity. No lesions are appreciated. 17:52 Abdomen/GI: Soft, non-tender, with normal bowel sounds. No distension or tympany. No guarding or rebound. No evidence of tenderness throughout. Back: No spinal tenderness. No costovertebral tenderness. Full range of motion. Skin: Warm, dry with normal turgor. Normal color with no rashes, no lesions, and no evidence of cellulitis. MS/ Extremity: Pulses equal, no cyanosis. Neurovascular intact. Full, normal range of motion. Neuro: Awake and alert, GCS 15, oriented to person, place, time, and situation. Cranial nerves II-XII grossly intact. Motor strength 5/5 in all extremities. Sensory grossly intact. Cerebellar exam normal. Normal gait. 17:52 Constitutional: The patient appears comatose. 17:52 Cardiovascular: Rate: bradycardic, Rhythm: regular, Pulses: no pulse deficits are appreciated, Heart sounds: normal. 17:52 Respiratory: severe repiratory distress is noted, Respirations: labored breathing, Breath sounds: rales, that are moderate, are heard in the right upper lobe and left upper lobe. Vital Signs: 16:08 BP 131 / 70; Pulse 46; Resp 18 A; Pulse Ox 82% on BVM; Weight 102.06 kg; Height 5 ft. 8 aj in. (172.72 cm); 16:12 BP 131 / 70; Pulse 39; Resp 18; Pulse Ox 98% on BVM; aj 16:17 BP 165 / 105; Pulse 86; Resp 18; Pulse Ox 86% on ETT ambu; aj 16:20 BP 146 / 98; Pulse 91; Resp 16 A; Pulse Ox 90% on ETT ambu; aj 17:10 BP 102 / 66; Pulse 75; Resp 16; Temp 93.9(C); Pulse Ox 100% on ETT vent; aj 17:26 BP 132 / 66; Pulse 64; Resp 16; Temp 94.4(C); Pulse Ox 100% on ETT vent; aj 17:43 BP 114 / 72; Pulse 72; Resp 16 A; Temp 94.5; Pulse Ox 100% on ETT vent; aj 18:11 BP 99 / 67; Pulse 56; Resp 16; Temp 94.7; Pulse Ox 100% on ETT vent; aj 18:13 BP 102 / 75; Pulse 56; Resp 16; Pulse Ox 100% on ETT vent; aj 18:32 BP 100 / 70; Pulse 54; Resp 16; Temp 94.9; Pulse Ox 100% on ETT vent; aj 18:57 BP 103 / 64; Pulse 53; Resp 16; Temp 95.3; Pulse Ox 100% on ETT vent; aj 19:20 BP 116 / 74; Pulse 82; Resp 16; Temp 95.7; Pulse Ox 100% on ETT vent; aj 16:08 Body Mass Index 34.21 (102.06 kg, 172.72 cm) Keo Coma Score: 16:07 Eye Response: none(1). Verbal Response: none(1). Motor Response: none(1). Total: 3. Procedures: 17:06 Intubation: Ventilated with 100% NRB prior to procedure. O2 saturation prior to gs procedure was 95 %. Intubated orally using # 4 Eduardo blade with 7.5 mm ETT. was successful on first attempt. Ventilated with ventilator. Cricoid pressure applied during procedure. Tube secured with ETT huerta Placement verified by CXR, CO2 detector with (+) color change, O2 saturation after procedure was 95 %. Patient tolerated well, tube required to be pulled back. MDM: 16:33 Patient medically screened. 17:52 Differential diagnosis: polypharmacy, over medication, si, resp failure. pt called gs said she wanted to , he came home found her on ground. Data reviewed: vital signs, nurses notes. 18:04 ED course: et moved into position slowly , pt is very large but small skeleton and did gs not want to dislodge tube, travis close to thoracic inlet.. 05/30 16:21 Order name: Acetaminophen; Complete Time: 18:03 05/30 16:21 Order name: Basic Metabolic Panel; Complete Time: 18:03 05/30 16:21 Order name: CBC with Diff; Complete Time: 18:03 05/30 16:21 Order name: ETOH Level; Complete Time: 18:03 05/30 16:21 Order name: Hepatic Function; Complete Time: 18:03 05/30 16:21 Order name: PT-INR; Complete Time: 17:06 05/30 16:21 Order name: Ptt, Activated; Complete Time: 17:06 05/30 16:21 Order name: Salicylate; Complete Time: 17:06 05/30 16:21 Order name: Urine Drug Screen; Complete Time: 18:03 05/30 16:21 Order name: CXR XRAY; Complete Time: 17:05/30 16:26 Order name: ABG; Complete Time: 18:51 05/30 16:45 Order name: Blood Culture Adult (2) 05/30 17:06 Order name: Urine Dipstick--Ancillary (enter results) 05/30 17:06 Order name: Urine --Ancillary (enter results) 05/30 16:21 Order name: EKG; Complete Time: 16:21 05/30 16:21 Order name: EKG - Nurse/Tech; Complete Time: 17:13 05/30 16:21 Order name: IV Saline Lock; Complete Time: 17:13 05/30 16:21 Order name: Labs collected and sent; Complete Time: 17:13 05/30 16:21 Order name: Urine Dipstick-Ancillary (obtain specimen); Complete Time: 17:14 05/30 16:26 Order name: CT Head Brain wo Cont; Complete Time: 18:03 05/30 16:38 Order name: XRAY CXR (1 view); Complete Time: 17:06 05/30 16:50 Order name: XRAY CXR (1 view); Complete Time: 18:51 05/30 16:26 Order name: Urine Test (obtain specimen); Complete Time: 17:14 iw EC:06 Rate is 81 beats/min. Rhythm is regular. HI interval is normal. QRS interval is normal. gs QT interval is prolonged. T waves are Normal. No ST changes noted. Clinical impression: Abnormal EKG without significant change. Interpreted by me. Administered Medications: 16:12 Drug: Atropine 0.5 mg Route: IVP; Site: left antecubital; aj 17:17 Follow up: Response: HR increased la1 16:13 Drug: Atropine 0.5 mg Route: IVP; Site: left antecubital; aj 17:16 Follow up: Response: HR increased la1 16:15 Drug: Succinylcholine 120 mg Route: IVP; Site: left antecubital; aj 17:17 Follow up: Response: Pt sedated la1 16:26 Drug: Ativan 1 mg Route: IVP; Site: left antecubital; aj 17:17 Follow up: Response: No adverse reaction; Pt sedated la1 16:44 Drug: VecuroNIUM 10 mg Route: IVP; Site: right antecubital; aj 17:17 Follow up: Response: Pt paralyzed la1 16:45 Drug: Propofol 8 mcg/kg/min Route: IV; Rate: calculated rate; Site: right antecubital; la1 19:48 Follow up: IV Status: Infusion continued upon admission aj 16:55 Drug: Albuterol - atroVENT (3:1) (2.5 mg - 0.5 mg) 3 ml Route: Nebulizer; aj 17:17 Follow up: Response: No adverse reaction la1 19:15 Drug: Atropine 0.5 mg Route: IVP; Site: right antecubital; aj 19:48 Follow up: Response: Cardiac rhythm changed aj Disposition: 05/30/18 18:03 Hospitalization ordered by Lalitha Obregon for Inpatient Admission. Preliminary diagnosis are Poisoning by unspecified drugs primarily affecting the autonomic nervous system, intentional self-harm, Acute respiratory failure. - Bed requested for Intensive Care Unit. - Status is Inpatient Admission. aj - Condition is Stable. - Problem is new. - Symptoms have improved. UTI on Admission? No Critical care time excluding procedures: 17:52 Critical care time: Bedside Care: 10 minutes, Consultation: 10 minutes, Family gs Intervention: 10 minutes. Total time: 30 minutes Signatures: Dispatcher [employer] EDChasity Abernathy RN RN dw Myers, Amanda, RN RN aj Williams, Irene, RN RN iw Attema, Lee, RN RN laKonstantin Perkins MD MD gs Botello, Elizabeth eb Corrections: (The following items were deleted from the chart) 18:06 18:03 Hospitalization Ordered by Lalitha Obregon MD for Inpatient Admission. Preliminary eb diagnosis is Poisoning by unspecified drugs primarily affecting the autonomic nervous system, intentional self-harm; Acute respiratory failure. Bed requested for Telemetry/MedSurg (Inpatient). Status is Inpatient Admission. Condition is Stable. Problem is new. Symptoms have improved. UTI on Admission? No. gs 19:18 18:06 05/30/2018 18:03 Hospitalization Ordered by Lalitha Obregon MD for Inpatient dw Admission. Preliminary diagnosis is Poisoning by unspecified drugs primarily affecting the autonomic nervous system, intentional self-harm; Acute respiratory failure. Bed requested for Telemetry/MedSurg (Inpatient). Status is Inpatient Admission. Condition is Stable. Problem is new. Symptoms have improved. UTI on Admission? No. eb 19:49 19:18 05/30/2018 18:03 Hospitalization Ordered by Lalitha Obregon MD for Inpatient aj Admission. Preliminary diagnosis is Poisoning by unspecified drugs primarily affecting the autonomic nervous system, intentional self-harm; Acute respiratory failure. Bed requested for Intensive Care Unit. Status is Inpatient Admission. Condition is Stable. Problem is new. Symptoms have improved. UTI on Admission? No. dw
--- NOTE | 2018-05-30 18:20 | P.HP ---
Certification for Inpatient Patient admitted to: Inpatient With expected LOS: >2 Midnights Patient will require the following post-hospital care: None Practitioner: I am a practitioner with admitting privileges, knowledge of patient current condition, hospital course, and medical plan of care. Services: Services provided to patient in accordance with Admission requirements found in Title 42 Section 412.3 of the Code of Federal Regulations Patient History Date of Service: 05/30/18 Primary Care Provider: None Reason for admission: Drug Overdose History of Present Illness: 27y/o F with No pmhx brought to the ED via EMS. Pt's at bedside states that they had an argument this AM and he went to go fishing. Pt then sent him a Snap chat stating "its better if I end everything", following which she also send him the snap chat of the empty bottle of baclofen. Rushed to the home and found patient down. He was not able to wake her up and thus called EMS to bring the patient to the hospital. + for cig smoking and THC smoking, occ alcohol. Has been having some major depression lately. No pmhx and has not been taking any other medication. Pt was in her usual state of health before the overdose. Allergies No Known Allergies Allergy (Verified 09/08/15 09:53) Home Medications: NK [No Home Meds] 09/08/15 - Family History Mother -: Diabetes Father -: Hypertension - Social History Alcohol use: No Caffeine use: Yes Review of Systems 10-point ROS is otherwise unremarkable Physical Examination - Physical Exam General: Other (Currently intubated and sedated) HEENT: Atraumatic, PERRLA Neck: Supple, 2+ carotid pulse no bruit, No LAD, Without JVD or thyroid abnormality Respiratory: Normal air movement, Other (intubated) Cardiovascular: Regular rate/rhythm, Normal S1 S2 Gastrointestinal: Normal bowel sounds, Soft and benign, Non-distended, No tenderness Musculoskeletal: No tenderness Integumentary: No rashes Neurological: Other (intubated and sedated) Lymphatics: No axilla or inguinal lymphadenopathy - Studies Laboratory Data (last 24 hrs) 05/30/18 16:20: PT 12.6 H, INR 1.07, APTT 37.3 H 05/30/18 16:20: WBC 16.8 H, Hgb 14.4, Hct 42.1, Plt Count 287 05/30/18 16:20: Sodium 141, Potassium 4.1, BUN 17, Creatinine 0.60, Glucose 113 H, Total Bilirubin 0.3, AST 13 L, ALT 29, Alkaline Phosphatase 93 Assessment and Plan - Problems (Diagnosis) (1) Acute respiratory failure Current Visit: Yes Status: Acute Plan: Due to Drug Overdose causing respiratory depression -Currently Intubated and sedated -Wean off the [facility] Vent as tolerated -If not extubated in 24 hrs. Will get pulm consult. Qualifiers: Respiratory failure complication: hypoxia Qualified Code(s): J96.01 - Acute respiratory failure with hypoxia (2) Drug overdose Current Visit: Yes Status: Acute Plan: Intentional Drug overdose in an attempt for suicide -Currently Intubated and sedated -Wean as tolerated to NC and RA -Baclofen overdose -Will monitor lab closely -Iv fluids for now -CM and psyc evaluation once extubated Qualifiers: Encounter type: initial encounter Injury intent: intentional self-harm Qualified Code(s): T50.902A - Poisoning by unspecified drugs, medicaments and biological substances, intentional self-harm, initial encounter (3) Depression Current Visit: Yes Status: Acute Plan: Will Start patient on depression medication once acute phase resolved Qualifiers: Depression Type: major depressive disorder Major depression recurrence: recurrent Active/Remission status: currently active Major depression episode severity: moderate Qualified Code(s): F33.1 - Major depressive disorder, recurrent, moderate (4) Morbid obesity Current Visit: Yes Status: Chronic Plan: Diet and excercise (5) Tetrahydrocannabinol (THC) use disorder, mild, abuse Current Visit: Yes Status: Chronic (6) Tobacco abuse Current Visit: Yes Status: Chronic Plan: Educated extensively on Abstain from tobacco abuse Discharge Plan: Home Plan to discharge in: 48 Hours - Advance Directives Does patient have a Living Will: No Does patient have a Durable POA for Healthcare: No - Code Status/Comfort Care Code Status Assessed: Yes Critical Care: Yes
--- NOTE | 2018-05-30 18:28 | RAD REPORT ---
EXAM DESCRIPTION: RAD - Chest Single View - 05/30/2018 5:55 pm CLINICAL HISTORY: POST ETT Chest pain. COMPARISON: Chest Single View dated 05/30/2018; Chest Single View dated 05/30/2018; ABDOMEN 1 VIEW KUB dated 09/09/2012 FINDINGS: Portable technique limits examination quality. The ET tube has been retracted somewhat but remains about 1 centimeter into the right mainstem bronch us. Improved aeration of the left lung is noted. Enteric tube coils in the stomach.
[2018-05-30] MEDS ORDERED: ATROPINE SULF 1 MG/10 ML SYR IV ONE (19:19)
[2018-05-30] MEDS ORDERED: PROPOFOL 1,000 MG/100 ML VIAL IV PRN (19:23)
[2018-05-30] MEDS ORDERED: ACETAMINOPHEN 500 MG TAB PO PRN (19:23)
[2018-05-30] MEDS ORDERED: ONDANSETRON 4 MG/2 ML VIAL IV PRN (19:23)
[2018-05-30] MEDS ORDERED: FENTANYL CITR 100 MCG/2 ML IV PRN (19:23)
[2018-05-30] MEDS: FAMOTIDINE 20 MG/2 ML VIAL IV SCH (20:18)
[2018-05-30] MEDS: NA CHLORIDE 0.9% 1,000 ML IV SCH (20:18)
[2018-05-30 20:30] LABS: Urine Blood NEGATIVE (NEG); Urine Glucose NEGATIVE (NEG); Urine Protein NEGATIVE (NEG); Urine Specific Gravity 1.025 (1.005-1.030)
[2018-05-30 22:07] LABS: Troponin I < 0.02 ng/mL (0.0-0.045)
[2018-05-31] MEDS: NA CHLORIDE 0.9% 1,000 ML IV SCH ×3 (04:23→20:15)
[2018-05-31 04:56] LABS: Protime INR 1.12
[2018-05-31 05:00] LABS: Absolute Lymphocytes (CBC) 1.8 K/uL (0.7-4.9); Absolute Monocytes 1.4 K/uL (0.1-1.3); Absolute Neutrophil 20.7 K/uL (1.8-8.0); Basophils % 0.1 % (0-1.3); Hematocrit 39.8 % (36.0-45.0); Lymphocytes % 7.4 % (15.3-44.8); MCH 32.2 pg (27.0-35.0); MCV 95.2 fL (80-100); MPV 10.2 fL (7.6-11.3); Monocytes % 5.7 % (3.3-12.3); RBC Red Blood Cell Count 4.18 M/uL (3.86-4.86)
[2018-05-31 05:07] LABS: ALT/SGPT 23 U/L (12-78); AST/SGOT 11 U/L (15-37); Albumin 3.4 g/dL (3.4-5.0); Alkaline Phosphatase 84 U/L (45-117); BUN Blood Urea Nitrogen 11 mg/dL (7-18); Bicarbonate 25 mmol/L (21-32); Bilirubin Total 0.5 mg/dL (0.2-1.0); Glucose Level 141 mg/dL (74-106); HDL Cholesterol 40 mg/dL (40-60); LDL Cholesterol, Calculated 89 (<130); Magnesium 1.8 mg/dL (1.8-2.4); Phosphorus 2.9 mg/dL (2.5-4.9); Potassium 3.8 mmol/L (3.5-5.1); Protein, Total 7.8 g/dL (6.4-8.2); Sodium Level 142 mmol/L (136-145)
[2018-05-31] MEDS ORDERED: MAGNESIUM SULFATE 1 gm IVPB 1 GM/100 ML BAG IV ONE (05:11)
[2018-05-31] MEDS ORDERED: PIPERACIL/TAZO 3.375 GM VIAL IV ONE (05:34)
[2018-05-31] MEDS ORDERED: NA CHLORIDE 0.9% 100 ML ONE (05:34)
[2018-05-31] MEDS ORDERED: PIPER/TAZO/NS 3.375gm 3.375 GM/100 ML BAG IVPB SCH (06:00)
[2018-05-31] MEDS ORDERED: KCL 20 MEQ/100 mL IVPB 20 MEQ/100 ML BAG IV SCH (06:00)
[2018-05-31 06:18] LABS: Arterial Blood Carboxyhemoglob 1.6 % (0-1.5); Blood Gas Oxyhemoglobin 95.4 % (94-97); Blood O2 Saturation 97.4 % (92-98.5)
[2018-05-31 06:26] LABS: Blood Morphology Comment NOT SEEN (NOT SEEN); Platelet Estimate ADEQ
--- NOTE | 2018-05-31 06:46 | EKG ---
Test Date: 2018-05-30 Test Time: 16:47:28 Motor And Generator Brush Cutter: ANKUSH MEASUREMENT RESULTS: Intervals: Rate: 81 MA: 198 QRSD: 94 QT: 414 QTc: 480 [place]: P: 61 MA: 198 QRS: 9 T: 42 INTERPRETIVE STATEMENTS: Normal sinus rhythm Prolonged QT Abnormal ECG No previous ECG available for comparison Electronically Signed On 05-31-18 06:45:49 CDT by Jacob Longo
[2018-05-31] MEDS ORDERED: INFLUENZA VACCINE (for 3y+) 0.5 ML DOSE IMVAC ONE (08:00)
[2018-05-31] MEDS: ENOXAPARIN 40 MG/0.4 ML SQ SCH (08:46)
[2018-05-31] MEDS: FAMOTIDINE 20 MG/2 ML VIAL IV SCH ×2 (08:46→20:15)
[2018-05-31] MEDS: PIPER/TAZO/NS 3.375gm 3.375 GM/100 ML BAG IVPB SCH ×2 (08:46→17:23)
--- NOTE | 2018-05-31 09:15 | RAD REPORT ---
EXAM DESCRIPTION: RAD - Chest Single View - 05/31/2018 6:45 am CLINICAL HISTORY: Ventilated Chest pain. COMPARISON: Chest Single View dated 05/30/2018; Chest Single View dated 05/30/2018; Chest Single View dated 05/30/2018; ABDOMEN 1 VIEW KUB dated 09/09/2012 FINDINGS: Portable technique limits examination quality. Tip of the ET tube is above the travis. Enteric tube descends in the stomach. The lungs appear grossl y clear. The heart is mildly prominent size.
--- NOTE | 2018-05-31 09:16 | RAD REPORT ---
EXAM DESCRIPTION: RAD - Abdomen 1 View (KUB) - 05/31/2018 6:47 am CLINICAL HISTORY: possible ingestion of tongue ring Pain COMPARISON: ABDOMEN 1 VIEW KUB dated 09/09/2012 FINDINGS: The bowel gas pattern is non-obstructive. No evidence of free air or pneumatosis. Enteric tube coils in the stomach. No metallic foreign body seen.
[2018-05-31] MEDS ORDERED: ATROPINE SULF 1 MG/10 ML SYR IV ONE (12:04)
[2018-05-31] MEDS ORDERED: SODIUM CHL 0.9% 1000 ML BAG IV ONE (12:04)
--- NOTE | 2018-05-31 13:06 | P.PN ---
Subjective Date of Service: 05/31/18 Primary Care Provider: None Chief Complaint: Drug Overdose Pt seen and examined at bedside with RN. Chart reviewed. Patient currently still remains intubated and sedated. Did well overall overnight Review of Systems 10-point ROS is otherwise unremarkable Physical Examination - Vital Signs Temperature: 99 F Blood Pressure: 138/87 Pulse: 61 Respirations: 16 Pulse Ox (%): 100 - Physical Exam General: Other (Intubated and sedated) HEENT: Atraumatic, PERRLA, EOMI Neck: Supple, JVD not distended Respiratory: Normal air movement, Crackles/rales, Expiratory wheezes, Inspiratory wheezes Cardiovascular: Regular rate/rhythm, Normal S1 S2 Gastrointestinal: Normal bowel sounds, No tenderness Musculoskeletal: No tenderness Integumentary: No rashes Lymphatics: No axilla or inguinal lymphadenopathy - Studies Laboratory Data (last 24 hrs) 05/30/18 16:20: PT 12.6 H, INR 1.07, APTT 37.3 H 05/30/18 16:20: WBC 16.8 H, Hgb 14.4, Hct 42.1, Plt Count 287 05/30/18 16:20: Sodium 141, Potassium 4.1, BUN 17, Creatinine 0.60, Glucose 113 H, Total Bilirubin 0.3, AST 13 L, ALT 29, Alkaline Phosphatase 93 Medications List Reviewed: Yes Assessment And Plan - Current Problems (Diagnosis) (1) Acute respiratory failure Onset Date: 05/31/18 Current Visit: Yes Status: Acute Plan: Due to Drug Overdose causing respiratory depression -Currently Intubated and sedated -Wean off the [facility] Vent as tolerated -If not extubated in 24 hrs. Will get pulm consult. Qualifiers: Respiratory failure complication: hypoxia Qualified Code(s): J96.01 - Acute respiratory failure with hypoxia (2) Drug overdose Onset Date: 05/31/18 Current Visit: Yes Status: Acute Plan: Intentional Drug overdose in an attempt for suicide -Currently Intubated and sedated -Wean as tolerated to NC and RA -Baclofen overdose -Will monitor lab closely -Iv fluids for now -CM and psyc evaluation once extubated Qualifiers: Encounter type: initial encounter Injury intent: intentional self-harm Qualified Code(s): T50.902A - Poisoning by unspecified drugs, medicaments and biological substances, intentional self-harm, initial encounter (3) Depression Onset Date: 05/31/18 Current Visit: Yes Status: Acute Plan: Will Start patient on depression medication once acute phase resolved Qualifiers: Depression Type: major depressive disorder Major depression recurrence: recurrent Active/Remission status: currently active Major depression episode severity: moderate Qualified Code(s): F33.1 - Major depressive disorder, recurrent, moderate (4) Morbid obesity Onset Date: 05/31/18 Current Visit: Yes Status: Chronic Plan: Diet and excercise (5) Tetrahydrocannabinol (THC) use disorder, mild, abuse Onset Date: 05/31/18 Current Visit: Yes Status: Chronic (6) Tobacco abuse Onset Date: 05/31/18 Current Visit: Yes Status: Chronic Plan: Educated extensively on Abstain from tobacco abuse Discharge Plan: Home Plan to discharge in: 48 Hours - Code Status/Comfort Care Code Status Assessed: Yes Critical Care: No
--- NOTE | 2018-05-31 18:05 | RAD REPORT ---
EXAM DESCRIPTION: RAD - Chest Single View - 05/31/2018 5:47 pm CLINICAL HISTORY: Shortness of breath COMPARISON: May TECHNIQUE: AP portable chest image was obtained 1734 hours . FINDINGS: Endotracheal tube has been removed since the earlier study. Lung volumes are quite low. Le ft perihilar interstitial and patchy alveolar opacification is present. This is questionably progress fei from earlier in the day. Right lung field is clear. Heart size is normal. No pneumothorax or larg e pleural effusion. No gross bony abnormality seen. No acute aortic findings suspected. IMPRESSION: Endotracheal tube and NG tube have been removed. Patchy left perihilar opacification. This can be monitored for developing edema or infiltrate.
[2018-06-01] MEDS: PIPER/TAZO/NS 3.375gm 3.375 GM/100 ML BAG IVPB SCH ×3 (00:27→16:46)
[2018-06-01 05:08] LABS: Absolute Lymphocytes (CBC) 2.6 K/uL (0.7-4.9); Absolute Monocytes 1.6 K/uL (0.1-1.3); Absolute Neutrophil 12.6 K/uL (1.8-8.0); Basophils % 0.4 % (0-1.3); Eosinophils % 0.6 % (0-4.4); Lymphocytes % 15.2 % (15.3-44.8); MCH 32.1 pg (27.0-35.0); MCV 95.6 fL (80-100); MPV 10.2 fL (7.6-11.3); Monocytes % 9.3 % (3.3-12.3); RBC Red Blood Cell Count 4.08 M/uL (3.86-4.86)
[2018-06-01 05:21] LABS: ALT/SGPT 18 U/L (12-78); AST/SGOT 11 U/L (15-37); Albumin 3.2 g/dL (3.4-5.0); Alkaline Phosphatase 70 U/L (45-117); BUN Blood Urea Nitrogen 8 mg/dL (7-18); Bicarbonate 24 mmol/L (21-32); Bilirubin Total 0.5 mg/dL (0.2-1.0); Glucose Level 122 mg/dL (74-106); Magnesium 2.3 mg/dL (1.8-2.4); Phosphorus 2.2 mg/dL (2.5-4.9); Potassium 3.5 mmol/L (3.5-5.1); Protein, Total 7.6 g/dL (6.4-8.2); Sodium Level 145 mmol/L (136-145)
[2018-06-01] MEDS ORDERED: POTASSIUM PHOS IN 0.9 % NACL 15 MMOL/250 ML BAG IV ONE (06:20)
[2018-06-01] MEDS ORDERED: INFLUENZA VACCINE (for 3y+) 0.5 ML DOSE IMVAC ONE (07:23)
[2018-06-01] MEDS: ENOXAPARIN 40 MG/0.4 ML SQ SCH (08:00)
[2018-06-01] MEDS: FAMOTIDINE 20 MG/2 ML VIAL IV SCH ×2 (08:01→20:35)
[2018-06-01] MEDS ORDERED: PHENOL 1.4% ORAL SPRAY 180ML MM PRN (08:20)
[2018-06-01 11:05] LABS: Urine Appearance CLEAR; Urine Bilirubin NEGATIVE (NEG); Urine Blood 3+ (NEG); Urine Color YELLOW; Urine Glucose NEGATIVE (NEG); Urine Protein NEGATIVE (NEG); Urine Specific Gravity 1.015 (1.005-1.030); Urine Urobilinogen 0.2 mg/dL (0.2-1.0)
[2018-06-01 11:12] LABS: Urine Microscopic Reflex ORDER UMIC
[2018-06-01 11:17] LABS: Urine Bacteria <20 /HPF (<20); Urine Culture Reflex Order REFLEXED; Urine RBC >50 /HPF (NONE SEEN)
--- NOTE | 2018-06-01 16:26 | PN ---
Date of Progress Note: 06/01/2018 Subjective: The patient is seen and examined. Chart reviewed and case discussed with RN. The patie nt has been extubated and is awake and alert. The patient states that she was trying to hurt herself due to recent stressors at home. She had got into argument with her significant other. The patient understands that she needs psychiatric treatment and is unacceptable to inpatient psychiatric facili ty transfer once stable. Review of Systems: Negative except as above. Medications: List reviewed. Physical Examination: Vital Signs: Temperature 98.5, heart rate 85, blood pressure 128/69, respirations 16, O2 98% on room air. General: Awake, alert, oriented x3. No acute distress. Morbidly obese female. CV: S1, S2. No murmurs. Regular rate and rhythm. Peripheral pulses present. Respiratory: Clear to auscultation bilaterally. No wheezing or stridor. No use of accessory muscle s. Gastrointestinal: Abdomen is soft, nontender, nondistended. Positive bowel sounds. No guarding or rigidity. Extremities: No clubbing, cyanosis, or edema. Neurologic: Nonfocal. Psych: Mood is somewhat depressed. Affect is flat. Insight and judgment are poor. Laboratory Data: UA shows negative nitrite, negative leukocyte esterase, greater than 50 RBCs, 5-10 WBC, 10-20 squamous epithelial cells, less than 20 bacteria. Sodium 145, potassium 3.5, chloride 111 , CO2 24, BUN 8, creatinine 0.6, glucose 122, calcium 8.4, phosphorus 2.2, magnesium 2.3. AST 11, AL T 18, albumin 3.2. WBC 16.9, H and H 13.1 and 39, platelets 232, neutrophils 74%. Blood cultures we re canceled apparently. Urine culture pending. Chest x-ray from 05/31/2018 shows patchy left perihi lar opacification, possible edema or infiltrate. Assessment And Plan: A 27-year-old female with: 1.Acute respiratory failure due to drug overdose, respiratory depression. The patient was on mechan ical ventilation, now extubated, doing well on room air. 2.Intentional drug overdose in a suicide attempt with Baclofen. The patient will need [facility] evaluati on and referral to inpatient psychiatric facility. We will continue suicide precautions and one-to-o ne monitoring. 3.Major depressive disorder, recurrent, moderate. 4.Morbid obesity, BMI 45. Recommend diet and exercise modification. 5.Marijuana abuse, counseled. 6.Nicotine dependence with cigarette smoking, counseled. 7.Leukocytosis with neutrophilia. UA does show some WBCs; however, also shows some squamous epithel ial cells and less than 20 bacteria. Likely contaminant. Nitrite and leukocyte esterase are negativ e. White count is trending down. The patient does not have any dysuria. We will continue to monito r. Urine cultures have been obtained. We will initiate [facility] evaluation. The patient will need [facility] psychiatric referral. /ALANNAH Voice ID: [id number] Report ID: [id number]
[2018-06-01] MEDS: NA CHLORIDE 0.9% 1,000 ML IV SCH ×2 (16:45→20:35)
[2018-06-02] MEDS: PIPER/TAZO/NS 3.375gm 3.375 GM/100 ML BAG IVPB SCH ×2 (01:42→07:57)
[2018-06-02 05:34] LABS: Absolute Lymphocytes (CBC) 3.4 K/uL (0.7-4.9); Absolute Monocytes 1.3 K/uL (0.1-1.3); Absolute Neutrophil 8.2 K/uL (1.8-8.0); Basophils % 0.2 % (0-1.3); Eosinophils % 2.5 % (0-4.4); Hematocrit 39.3 % (36.0-45.0); Lymphocytes % 25.8 % (15.3-44.8); MCH 32.2 pg (27.0-35.0); MCV 96.1 fL (80-100); MPV 10.1 fL (7.6-11.3); Monocytes % 9.9 % (3.3-12.3); RBC Red Blood Cell Count 4.09 M/uL (3.86-4.86)
[2018-06-02 05:46] VITALS: BMI 71.8
[2018-06-02 05:55] LABS: ALT/SGPT 20 U/L (12-78); AST/SGOT 13 U/L (15-37); Albumin 3.2 g/dL (3.4-5.0); Alkaline Phosphatase 70 U/L (45-117); BUN Blood Urea Nitrogen 8 mg/dL (7-18); Bicarbonate 24 mmol/L (21-32); Bilirubin Total 0.5 mg/dL (0.2-1.0); Glucose Level 87 mg/dL (74-106); Phosphorus 2.4 mg/dL (2.5-4.9); Potassium 3.5 mmol/L (3.5-5.1); Protein, Total 7.7 g/dL (6.4-8.2); Sodium Level 144 mmol/L (136-145)
[2018-06-02] MEDS ORDERED: POTASSIUM PHOS IN 0.9 % NACL 15 MMOL/250 ML BAG IV ONE ×2 (06:01→06:33)
[2018-06-02] MEDS: NA CHLORIDE 0.9% 1,000 ML IV SCH (06:29)
[2018-06-02 06:32] LABS: Magnesium 2.3 mg/dL (1.8-2.4)
[2018-06-02] MEDS: ENOXAPARIN 40 MG/0.4 ML SQ SCH (07:56)
[2018-06-02] MEDS: FAMOTIDINE 20 MG/2 ML VIAL IV SCH (07:56)
[2018-06-02 10:43] VITALS: O2SAT 98
[2018-06-02 14:49] VITALS: BP 132/80; TEMP 98.9
--- NOTE | 2018-06-03 00:27 | DS ---
Date of Discharge: 06/02/2018 Admitting Diagnoses: 1.Acute respiratory failure secondary to drug overdose, causing respiratory depression. 2.Intentional drug overdose. 3.Suicide attempt. 4.Major depressive disorder, recurrent, moderate. 5.Morbid obesity. 6.THC abuse. 7.Nicotine dependence with cigarette smoking. 8.Acute cystitis with hematuria. 9.Developing left-sided pneumonia. Discharge Diagnoses: 1.Acute respiratory failure, resolved. 2.Intentional drug overdose in a suicide attempt with baclofen. 3.Major depressive disorder, recurrent, moderate. 4.Morbid obesity, body mass index of 45. 5.Marijuana abuse, counseled. 6.Nicotine dependence with cigarette smoking, counseled. 7.Urinary tract infection, acute cystitis with hematuria. 8.Left perihilar pneumonia. Hospital Course: The patient is a 27-year-old female who had an argument with her and in a s uicide gesture, stating that she wanted to end everything, took baclofen, and sent the a pict ure on social media. The patient's rushed home and found the patient was unresponsive. The patient was then brought in by EMS for further evaluation. The patient apparently does have a previo us history of suicide attempt with trying to slit her wrist. She had to be intubated and was on [facility] anical ventilation. The patient was unable to be weaned off the ventilator and was able to be taken off oxygen completely. She did have some abnormal UA with hematuria as she is menstruating at this t kenneth. Her white count, which initially went up to 23.9, did come down. She was on antibiotics for po ssible perihilar infiltrate and urinary tract infection. Urine culture did not show any growth. Blo od culture also did not show any growth. She was counseled on nicotine dependence and cigarette smok ing. The patient was initially cooperative and was accepting of help, especially in terms of psychia tric treatment. The patient once medically stable was evaluated by [facility] and was recommended to michael bella up as an outpatient, did not meet their requirements for inpatient psychiatric referral as the donnie ent is unfunded and she is unable to be transferred to psychiatric facility. She wishes to follow up outpatient with [facility]. She denies any further suicidal ideation, did not have any plans. She has been given a list of the facilities and will be going to follow up in [place]. She has the critical access hospital's hotline number as well. The patient understands that she took an overdose in a moment of weakne ss and wants to make changes in her life, plans to [facility] [place] [facility] [facility] [place]. The patient will be movin g to [place] to separate herself from her social stressors. The patient unfortunately will be able to get help at a psychiatric facility as the MR did not recommend in patient followup. Therefore, patient was discharged in a stable condition. Activity: As tolerated. Medications: As per medication reconciliation list. Followup: Follow up with primary care physician in 2-3 days. [facility] Ret urn to ER for worsening condition. Diet: Low fat, calorie restricted diet. Complete smoking cessation and avoid illicit substances. Medications: As per medication reconciliation list. Finishing off the course of Levaquin for pneumo apple and urinary tract infection. Physical Examination: General: Awake, alert, oriented, no acute distress. Obese female, morbidly obese female. CV: S1, S2. No murmurs. Respiratory: Moving air well bilaterally. Abdomen: Abdomen is soft, nontender, nondistended. Positive bowel sounds. Extremities: No clubbing, cyanosis, edema. Neurologic: Nonfocal. Total time spent discharging the patient was 39 minutes. TODD Voice ID: [id number] Report ID: [id number]
== END 2018-06-02 13:55 | disposition home or self-care (01) | DRG 917 ==
LOC: ER 16:08 → ERHOLD 18:09 → 3RD-ICU 19:27
PROVIDERS: ADMIT Family Medicine; ATTEND Family Medicine
PROC: 5A1945Z Respiratory Ventilation, 24-96 Consecutive Hours (ICD-10-PCS; principal; 2018-05-30)
PROC: 0BH17EZ Insertion of Endotracheal Airway into Trachea, Via Natural or Artificial Opening (ICD-10-PCS; 2018-05-30)
PROC: 0D9670Z Drainage of Stomach with Drainage Device, Via Natural or Artificial Opening (ICD-10-PCS; 2018-05-30)
DX: T42.8X2A Poisoning by antiparkinsonism drugs and other central muscle-tone depressants, intentional self-harm, initial encounter (principal); J96.01 Acute respiratory failure with hypoxia; J18.9 Pneumonia, unspecified organism; F33.1 Major depressive disorder, recurrent, moderate; Z68.42 Body mass index [BMI] 45.0-49.9, adult; N30.01 Acute cystitis with hematuria; Y92.019 Unspecified place in single-family (private) house as the place of occurrence of the external cause; E66.01 Morbid (severe) obesity due to excess calories; F12.10 Cannabis abuse, uncomplicated; F17.210 Nicotine dependence, cigarettes, uncomplicated; D72.828 Other elevated white blood cell count
CPT/HCPCS: 31500; 36415; 70450; 71045; 74018; 80048; 80053; 80061; 80076; 80307; 80320; 80329; 81003; 81015; 81025; 82805; 83735; 84100; 84443; 84484; 85025; 85610; 85730; 87086; 87088; 93005; 94002; 94003; 94640; 99291; 99292; J0330; J1650; J2543; J3010; J3475; J7030; Q2035

== ENCOUNTER 2019-08-28 02:01 | Emergency (ER) | payer SELFPAY ==
--- OUTSIDE RECORDS SUMMARY | 2019-08-28 02:03 | XMS REPORT ---
:1990 [facility] Address [address] [place] [address] Care Team Providers Name Role Phone Unavailable Unavailable Unavailable Problems This patient has no known problems. Allergies, Adverse Reactions, Alerts This patient has no known allergies or adverse reactions. Medications This patient has no known medications.
--- NOTE | 2019-08-28 03:54 | ER ---
Nurse's Notes [facility] Name: Maria Isabel Johnson Age: 28 yrs Sex: Female : 1990 Arrival Date: 08/28/2019 Time: 02:03 Bed 20 Private MD: Diagnosis: Edema, unspecified Presentation: 08/28 02:11 Presenting complaint: Patient states: "I am having both my feet swelling and my right jd3 foot is feeling pain and tingling sensation. it feels tight.". Transition of care: patient was not received from another setting of care. Onset of symptoms was August 28, 2019. Risk Assessment: Do you want to hurt yourself or someone else? Patient reports no desire to harm self or others. Initial Sepsis Screen: Does the patient meet any 2 criteria? No. Patient's initial sepsis screen is negative. Does the patient have a suspected source of infection? No. Patient's initial sepsis screen is negative. Care prior to arrival: None. 02:11 Method Of Arrival: Ambulatory jd3 02:11 Acuity: SOLITARIO 4 jd3 02:18 Note pt ambulated from lobby to ER room with even and steady gait. 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 - Social history:: Smoking status: Patient uses tobacco products, denies chronic smoking, but will smoke occasionally. - Ebola Screening: : Patient negative for fever greater than or equal to 101.5 degrees Fahrenheit, and additional compatible Ebola Virus Disease symptoms. Screenin:17 Abuse screen: Denies threats or abuse. Nutritional screening: No deficits noted. jd3 Tuberculosis screening: No symptoms or risk factors identified. Fall Risk Ambulatory Aid- None/Bed Rest/Nurse Assist (0 pts). Gait- Normal/Bed Rest/Wheelchair (0 pts) Mental Status- Oriented to own ability (0 pts). Total Castillo Fall Scale indicates No Risk (0-24 pts). Assessment: 02:15 General: Appears in no apparent distress. uncomfortable, Behavior is calm, cooperative, jd3 appropriate for age. Pain: Complains of pain in right foot Quality of pain is described as squeezing, tingling, Aggravated by weight bearing. Neuro: Level of Consciousness is awake, alert, obeys commands, Oriented to person, place, time, situation. Cardiovascular: Denies chest pain, Capillary refill < 3 seconds Patient's skin is warm and dry. Respiratory: Airway is patent Respiratory effort is even, unlabored, Respiratory pattern is regular, symmetrical, Denies cough, shortness of breath. GI: No signs and/or symptoms were reported involving the gastrointestinal system. : No signs and/or symptoms were reported regarding the genitourinary system. EENT: No signs and/or symptoms were reported regarding the EENT system. Derm: Skin is intact, Skin is dry, Skin is normal, Skin temperature is warm. Musculoskeletal: Circulation, motion, and sensation intact. Range of motion: intact in all extremities, Swelling present in right foot and left foot. 03:17 Reassessment: Patient appears in no apparent distress at this time. No changes from jd3 previously documented assessment. Patient and/or family updated on plan of care and expected duration. Pain level reassessed. Patient is alert, oriented x 3, equal unlabored respirations, skin warm/dry/pink. 04:34 Reassessment: Patient appears in no apparent distress at this time. Patient and/or jd3 family updated on plan of care and expected duration. Pain level reassessed. Patient is alert, oriented x 3, equal unlabored respirations, skin warm/dry/pink. reported understanding of discharge instructions. Patient states feeling better. Vital Signs: 02:14 BP 135 / 88; Pulse 85; Resp 17 S; Temp 98.2(O); Pulse Ox 100% on R/A; Weight 127.01 kg jd3 (R); Height 5 ft. 1 in. (154.94 cm) (R); Pain 8/10; 03:17 BP 107 / 63; Pulse 72; Resp 18 S; Pulse Ox 97% on R/A; jd3 04:33 BP 120 / 70; Pulse 76; Resp 17 S; Pulse Ox 98% on R/A; jd3 02:14 Body Mass Index 52.90 (127.01 kg, 154.94 cm) [facility] ED Course: 02:03 Patient arrived in ED. ds1 02:04 Denise Shipley FNP-C is [facility]. kb 02:04 Art Carbajal MD is Attending Physician. kb 02:11 Raj Simons, RN is Primary Nurse. jd3 02:13 Triage completed. jd3 02:15 Arm band placed on. jd3 02:17 Patient has correct armband on for positive identification. Bed in low position. Call jd3 light in reach. Side rails up X 1. Adult w/ patient. 03:53 US Extremity Venous Unilateral Ltd In Process Unspecified. EDMS 03:53 Ultrasound completed. Patient tolerated well. Notified Primary Nurse . sg3 04:32 No provider procedures requiring assistance completed. Patient did not have IV access jd3 during this emergency room visit. Administered Medications: No medications were administered Outcome: 03:53 Discharge ordered by . rn 04:33 Discharged to home ambulatory, with friend. jd3 04:33 Condition: stable 04:33 Discharge instructions given to patient, friend, Instructed on discharge instructions, follow up and referral plans. Demonstrated understanding of instructions, follow-up care. 04:35 Patient left the ED. jd3 Signatures: Dispatcher [employer] EDMT Denise Shipley FNP-C ELEMENT BURNER-Ckb Teena Palma ds1 Art Carbajal MD MD rn Davies, Jonathon, RN RN Melody Palomino sg3
--- NOTE | 2019-08-28 03:54 | EDPHYS ---
Physician Documentation [facility] Name: Maria Isabel Johnson Age: 28 yrs Sex: Female : 1990 Arrival Date: 08/28/2019 Time: 02:03 Bed 20 Private MD: ED Physician Art Carbajal HPI: 08/28 02:21 This 28 yrs old Female presents to ER via Ambulatory with complaints of Foot kb Swelling. 02:22 The patient presents with swelling, tenderness. The complaints affect the right calf kb and right foot. Context: The problem was sustained at home, resulted from an unknown cause, the patient can fully bear weight, the patient is able to ambulate, Problem is a result from a previous injury: No. Onset: The symptoms/episode began/occurred today. Modifying factors: The symptoms are alleviated by nothing. the symptoms are aggravated by nothing. Associated signs and symptoms: Pertinent positives: calf tenderness, swelling. Treatment prior to arrival includes: no previous treatment. Severity of symptoms: At their worst the symptoms were moderate, in the emergency department the symptoms are unchanged. The patient has not experienced similar symptoms in the past. The patient has not recently seen a physician. 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 Denies pain, injury or trauma. Denies recent travel, surgeries. 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 - Social history:: Smoking status: Patient uses tobacco products, denies chronic smoking, but will smoke occasionally. - Ebola Screening: : Patient negative for fever greater than or equal to 101.5 degrees Fahrenheit, and additional compatible Ebola Virus Disease symptoms. ROS: 02:21 Constitutional: Negative for fever, chills, and weight loss, ENT: Negative for injury, kb pain, and discharge, Neck: Negative for injury, pain, and swelling, Cardiovascular: Negative for chest pain, palpitations, and edema, Respiratory: Negative for shortness of breath, cough, wheezing, and pleuritic chest pain, Abdomen/GI: Negative for abdominal pain, nausea, vomiting, diarrhea, and constipation, Back: Negative for injury and pain, Skin: Negative for injury, rash, and discoloration, Neuro: Negative for headache, weakness, numbness, tingling, and seizure. 02:21 MS/extremity: Positive for swelling, tenderness, of the right calf and dorsum of right foot. Exam: 02:21 Constitutional: This is a well developed, well nourished patient who is awake, alert, kb and in no acute distress. Head/Face: Normocephalic, atraumatic. Neck: Trachea midline, no thyromegaly or masses palpated, and no cervical lymphadenopathy. Supple, full range of motion without nuchal rigidity, or vertebral point tenderness. No Meningismus. Chest/axilla: Normal chest wall appearance and motion. Nontender with no deformity. No lesions are appreciated. Cardiovascular: Regular rate and rhythm with a normal S1 and S2. No gallops, murmurs, or rubs. Normal PMI, no JVD. No pulse deficits. Respiratory: Lungs have equal breath sounds bilaterally, clear to auscultation and percussion. No rales, rhonchi or wheezes noted. No increased work of breathing, no retractions or nasal flaring. Abdomen/GI: Soft, non-tender, with normal bowel sounds. No distension or tympany. No guarding or rebound. No evidence of tenderness throughout. Back: No spinal tenderness. No costovertebral tenderness. Full range of motion. Skin: Warm, dry with normal turgor. Normal color with no rashes, no lesions, and no evidence of cellulitis. Neuro: Awake and alert, GCS 15, oriented to person, place, time, and situation. Cranial nerves II-XII grossly intact. Motor strength 5/5 in all extremities. Sensory grossly intact. Cerebellar exam normal. Normal gait. 02:21 Musculoskeletal/extremity: Extremities: grossly normal except: noted in the right calf and right foot: swelling, tenderness, ROM: intact in all extremities, Circulation is intact in all extremities. Sensation intact. Weight bearing: able to fully bear weight. Vital Signs: 02:14 BP 135 / 88; Pulse 85; Resp 17 S; Temp 98.2(O); Pulse Ox 100% on R/A; Weight 127.01 kg jd3 (R); Height 5 ft. 1 in. (154.94 cm) (R); Pain 8/10; 03:17 BP 107 / 63; Pulse 72; Resp 18 S; Pulse Ox 97% on R/A; jd3 04:33 BP 120 / 70; Pulse 76; Resp 17 S; Pulse Ox 98% on R/A; jd3 02:14 Body Mass Index 52.90 (127.01 kg, 154.94 cm) jd3 MDM: 02:04 Patient medically screened. kb 02:20 Data reviewed: vital signs, nurses notes. Data interpreted: Pulse oximetry: on room air kb is 100 %. Interpretation: normal. 08/28 02:20 Order name: US Extremity Venous Unilateral Ltd; Complete Time: 16:01 kb Administered Medications: No medications were administered Disposition: 03:53 Co-signature as Attending Physician, Art Carbajal MD. rn Disposition: 08/28/19 03:53 Discharged to Home. Impression: Edema, unspecified. - Condition is Stable. - Discharge Instructions: Edema, [id number], Peripheral Edema. - Medication Reconciliation Form, Thank You Letter, Antibiotic Education, Prescription Opioid Use form. - Follow up: Emergency Department; When: As needed; Reason: Worsening of condition. Follow up: Private Physician; When: 2 - 3 days; Reason: Recheck today's complaints, Continuance of care, Re-evaluation by your physician. Signatures: Dispatcher [employer] EDME Denise Shipley, BUSINESS ANALYTICS INTERN-C BUSINESS ANALYTICS INTERN-Ckb Art Carbajal MD MD rn Davies, Jonathon, RN RN jd3 Corrections: (The following items were deleted from the chart) 04:35 03:53 08/28/2019 03:53 Discharged to Home. Impression: Edema, unspecified. Condition is jd3 Stable. Discharge Instructions: Edema, [id number], Peripheral Edema. Forms are Medication Reconciliation Form, Thank You Letter, Antibiotic Education, Prescription Opioid Use. Follow up: Emergency Department; When: As needed; Reason: Worsening of condition. Follow up: Private Physician; When: 2 - 3 days; Reason: Recheck today's complaints, Continuance of care, Re-evaluation by your physician. rn
[2019-08-28 04:48] VITALS: TEMP 98.2
[2019-08-28 04:50] VITALS: BP 120/70; O2SAT 98
--- NOTE | 2019-08-28 09:34 | RAD REPORT ---
EXAM DESCRIPTION: USExtremity Venous Uni Ltd08/28/2019 3:53 am CLINICAL HISTORY: Right leg pain and swelling. COMPARISON: None. FINDINGS: Right common femoral, superficial femoral, popliteal and right posterior tibial veins are compressible and demonstrate augmentation. Doppler demonstrates good flow. IMPRESSION: No evidence of deep venous thrombosis involving the right lower extremity.
== END 2019-08-28 04:35 | disposition home or self-care (01) ==
LOC: ER 02:01
DX: R60.9 Edema, unspecified (principal); Z72.0 Tobacco use
CPT/HCPCS: 93971; 99283

== ENCOUNTER 2019-12-12 06:14 | Emergency (ER) | payer SELFPAY ==
--- OUTSIDE RECORDS SUMMARY | 2019-12-12 06:17 | XMS REPORT ---
:1990 Author Organization [facility] t Address [address] [place] [address] Care Team Providers Name Role Phone Unavailable Unavailable Unavailable Problems This patient has no known problems. Allergies, Adverse Reactions, Alerts This patient has no known allergies or adverse reactions. Medications This patient has no known medications.
[2019-12-12] MEDS ORDERED: HYDROCODONE/APAP 10/325 TAB ONE (06:34)
--- NOTE | 2019-12-12 07:03 | EDPHYS ---
Physician Documentation [facility] Name: Maria Isabel Johnson Age: 29 yrs Sex: Female : 1990 Arrival Date: 12/12/2019 Time: 06:17 Bed 24 Private MD: ED Physician Chicho Riojas HPI: 12/11 06:41 This 29 yrs old Female presents to ER via Wheelchair with complaints of Fall kb Injury - Knee Pain. 06:41 Details of fall: The patient fell from an upright position, while walking. Onset: The kb symptoms/episode began/occurred last night. Associated injuries: The patient sustained left knee, decreased range of motion, painful injury. Severity of symptoms: At their worst the symptoms were moderate, in the emergency department the symptoms are unchanged. The patient has not experienced similar symptoms in the past. The patient has not recently seen a physician. Pt reports she went down a step last night and felt 6 pops in her left knee. Reports it has been hurting all night and she is unable to bend it. Tenderness above and posterior to patella. 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 - Social history:: Smoking status: Patient reports the use of cigarette tobacco products, denies chronic smoking, but will smoke occasionally. ROS: 06:39 Constitutional: Negative for fever, chills, and weight loss, Cardiovascular: Negative kb for chest pain, palpitations, and edema, Respiratory: Negative for shortness of breath, cough, wheezing, and pleuritic chest pain, Abdomen/GI: Negative for abdominal pain, nausea, vomiting, diarrhea, and constipation, Back: Negative for injury and pain, Skin: Negative for injury, rash, and discoloration, Neuro: Negative for headache, weakness, numbness, tingling, and seizure. 06:39 MS/extremity: Positive for decreased range of motion, pain, tenderness, of the left knee. Exam: 06:39 Constitutional: This is a well developed, well nourished patient who is awake, alert, kb and in no acute distress. Head/Face: Normocephalic, atraumatic. Chest/axilla: Normal chest wall appearance and motion. Nontender with no deformity. No lesions are appreciated. Cardiovascular: Regular rate and rhythm with a normal S1 and S2. No gallops, murmurs, or rubs. Normal PMI, no JVD. No pulse deficits. Respiratory: Lungs have equal breath sounds bilaterally, clear to auscultation and percussion. No rales, rhonchi or wheezes noted. No increased work of breathing, no retractions or nasal flaring. Abdomen/GI: Soft, non-tender, with normal bowel sounds. No distension or tympany. No guarding or rebound. No evidence of tenderness throughout. Skin: Warm, dry with normal turgor. Normal color with no rashes, no lesions, and no evidence of cellulitis. Neuro: Awake and alert, GCS 15, oriented to person, place, time, and situation. Cranial nerves II-XII grossly intact. Motor strength 5/5 in all extremities. Sensory grossly intact. Cerebellar exam normal. Normal gait. 06:39 Musculoskeletal/extremity: Extremities: grossly normal except: noted in the left knee: decreased ROM, pain, tenderness, ROM: limited active range of motion due to pain, in the left knee, Circulation is intact in all extremities. Sensation intact. Weight bearing: can bear weight with assistance only. Vital Signs: 06:30 BP 140 / 96; Pulse 100; Resp 18; Temp 97.5(TE); Pulse Ox 97% on R/A; Weight 127.01 kg lp1 (R); Height 5 ft. 1 in. (154.94 cm); Pain 9/10; 06:30 Body Mass Index 52.90 (127.01 kg, 154.94 cm) lp1 MDM: 06:21 Patient medically screened. kb 06:41 Data reviewed: vital signs, nurses notes. Data interpreted: Pulse oximetry: on room air kb is 97 %. Interpretation: normal. 06:58 Counseling: I had a detailed discussion with the patient and/or guardian regarding: the kb historical points, exam findings, and any diagnostic results supporting the discharge/admit diagnosis, radiology results, the need for outpatient follow up, a orthopedic surgeon, to return to the emergency department if symptoms worsen or persist or if there are any questions or concerns that arise at home. 12/11 06:25 Order name: Knee Left 3 View XRAY kb 12/11 06:59 Order name: Knee Immobilizer; Complete Time: 08:21 kb 12/11 06:59 Order name: Crutches; Complete Time: 08:21 kb Administered Medications: 06:29 Drug: [place] 10 mg-325 mg 1 tabs {Note: RASS 0.} Route: PO; lp1 08:10 Follow up: Response: No adverse reaction; Pain is decreased aa5 Disposition: 12/12/19 07:01 Discharged to Home. Impression: Pain in left knee. - Condition is Stable. - Discharge Instructions: Knee Pain, [id number]. - Prescriptions for Diclofenac Sodium 75 mg Oral Tablet, Delayed Release (E.C.) - take 1 tablet by ORAL route 2 times per day As needed; 30 tablet. - Work release form, Medication Reconciliation Form, Thank You Letter, Antibiotic Education, Prescription Opioid Use form. - Follow up: Emergency Department; When: As needed; Reason: Worsening of condition. Follow up: Private Physician; When: 2 - 3 days; Reason: Recheck today's complaints, Continuance of care, Re-evaluation by your physician. Signatures: Dispatcher [employer] EDGA Densie Shipley, BED AND BREAKFAST INNKEEPER-C BED AND BREAKFAST INNKEEPER-Annita Yoder, RN RN aa5 Krystin Kan RN RN lp1 Corrections: (The following items were deleted from the chart) 08:23 07:01 12/12/2019 07:01 Discharged to Home. Impression: Pain in left knee. Condition is aa5 Stable. Forms are Medication Reconciliation Form, Thank You Letter, Antibiotic Education, Prescription Opioid Use. Follow up: Emergency Department; When: As needed; Reason: Worsening of condition. Follow up: Private Physician; When: 2 - 3 days; Reason: Recheck today's complaints, Continuance of care, Re-evaluation by your physician. kb
--- NOTE | 2019-12-12 07:03 | ER ---
Nurse's Notes [facility] Name: Maria Isabel Johnson Age: 29 yrs Sex: Female : 1990 Arrival Date: 12/12/2019 Time: 06:17 Bed 24 Private MD: Diagnosis: Pain in left knee Presentation: 12/11 06:30 Chief complaint: Patient states: Missed a step while walking off of porch and felt lp1 multiple "pops" to left knee; States unable to bear complete weight. Coronavirus screen: Proceed with normal triage. Ebola Screen: No symptoms or risks identified at this time. Initial Sepsis Screen: Does the patient meet any 2 criteria? No. Patient's initial sepsis screen is negative. Does the patient have a suspected source of infection? No. Patient's initial sepsis screen is negative. Risk Assessment: Do you want to hurt yourself or someone else? Patient reports no desire to harm self or others. Onset of symptoms was December 11, 2019 at 22:00. 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 - Social history:: Smoking status: Patient reports the use of cigarette tobacco products, denies chronic smoking, but will smoke occasionally. Screenin:32 Abuse screen: Denies threats or abuse. Denies injuries from another. Nutritional lp1 screening: No deficits noted. Tuberculosis screening: No symptoms or risk factors identified. Fall Risk None identified. Assessment: 06:32 General: Appears uncomfortable, Behavior is appropriate for age. Pain: Complains of lp1 pain in left knee Pain currently is 9 out of 10 on a pain scale. Quality of pain is described as sharp. Neuro: No deficits noted. Cardiovascular: No deficits noted. Respiratory: No deficits noted. GI: No signs and/or symptoms were reported involving the gastrointestinal system. : No signs and/or symptoms were reported regarding the genitourinary system. EENT: No signs and/or symptoms were reported regarding the EENT system. Derm: Skin is pink, warm \\T\\ dry. Musculoskeletal: Circulation, motion, and sensation intact. Reports pain in left knee. 07:25 Reassessment: Awaiting knee immobilizer from materials, pt notified of wait time. . aa5 07:25 Reassessment: Patient is alert, oriented x 3, equal unlabored respirations, skin aa5 warm/dry/pink. 08:10 Reassessment: Patient is alert, oriented x 3, equal unlabored respirations, skin aa5 warm/dry/pink. Vital Signs: 06:30 BP 140 / 96; Pulse 100; Resp 18; Temp 97.5(TE); Pulse Ox 97% on R/A; Weight 127.01 kg lp1 (R); Height 5 ft. 1 in. (154.94 cm); Pain 9/10; 06:30 Body Mass Index 52.90 (127.01 kg, 154.94 cm) lp1 ED Course: 06:17 Patient arrived in ED. ds1 06:21 [facility] kb 06:21 Chicho Riojas MD is Attending Physician. kb 06:27 Krystin Kan, GRETCHEN is Primary Nurse. lp1 06:31 Triage completed. lp1 06:31 Arm band placed on. lp1 06:32 Patient has correct armband on for positive identification. lp1 07:04 Knee Left 3 View XRAY In Process Unspecified. EDMS 08:10 No provider procedures requiring assistance completed. Patient did not have IV access aa5 during this emergency room visit. 08:10 Crutch training done. Knee immobilizer applied on left knee. aa5 Administered Medications: 06:29 Drug: [place] 10 mg-325 mg 1 tabs {Note: RASS 0.} Route: PO; lp1 08:10 Follow up: Response: No adverse reaction; Pain is decreased aa5 Outcome: 07:01 Discharge ordered by . kb 08:10 Discharged to home ambulatory, with crutches, with significant other. aa5 08:10 Condition: stable 08:10 Discharge instructions given to patient, Instructed on discharge instructions, follow up and referral plans. medication usage, crutch walking, Demonstrated understanding of instructions, follow-up care, medications, crutch walking, Prescriptions given X 1. 08:15 Patient left the ED. aa5 Signatures: Dispatcher [employer] EDMS Denise Shipley, DIESEL ENGINE MECHANIC-C DIESEL ENGINE MECHANIC-Teena Ragland ds1 Annita Sheffield RN RN aa5 Krystin Kan RN RN lp1 Corrections: (The following items were deleted from the chart) 08:25 08:23 Patient left the ED. aa5 aa5
[2019-12-12 08:30] VITALS: BP 140/96; TEMP 97.5; O2SAT 97
--- NOTE | 2019-12-12 08:44 | RAD REPORT ---
EXAM DESCRIPTION: RAD - Knee Left 3 View - 12/12/2019 7:04 am CLINICAL HISTORY: Left knee pain status post injury FINDINGS: A true lateral view of the left knee was not obtained limiting evaluation. No gross fracture or dislocation Edema is present in the soft tissues If patient continues have symptoms to suggest an occult fracture, ligamentous or meniscal injury then MRI would be recommended
== END 2019-12-12 08:23 | disposition home or self-care (01) ==
LOC: ER 06:14
DX: M25.562 Pain in left knee (principal); F17.210 Nicotine dependence, cigarettes, uncomplicated
CPT/HCPCS: 99284

== ENCOUNTER 2021-07-18 21:39 | Emergency (ER) | payer SELFPAY ==
--- OUTSIDE RECORDS SUMMARY | 2021-07-18 21:42 | XMS REPORT | Continuity of Care Document ---
:1990 Author Organization [facility] t Address [facility] [place] [address] [place] [id number] Care Team Providers Name Role Phone Jarad DE SOUZA Attending Clinician Unavailable Mario FISCHER Attending Clinician Unavailable Sharron SELLERS Attending Clinician Unavailable Payers Payer Name Policy Type Policy Number Effective Date Expiration Date Ruth thornton [id number] 2019 00:00:00 Problems This patient has no known problems. Allergies, Adverse Reactions, Alerts Allergy Allergy Status Severity Reaction(s) Onset Inactive Treating Comm ents Source Name Type Date Date Clinician NO KNOWN Drug Active [facility] ALLERGIE Class y [facility] Medications This patient has no known medications. Procedures This patient has no known procedures. Encounters Start End Encounter Admission Attending Care Care Encounter Source Date/Time Date/Time Type Type Clinicians Facility Department ID 2021-07-01 Emergency [facility] [id number] Univers 10:57:39 [facility] 2021-06-28 Emergency [facility] [id number] Univers 12:43:22 [facility] 2021-06-06 2021-06-06 Outpatient Sharron DE SOUZA [facility] [id number] Univers 09:45:00 09:45:00 ERASMO [id number] [facility] 2021-06-06 2021-06-06 Outpatient Sharron DE SOUZA [facility] [id number] Univers 09:45:00 09:45:00 ERASMO [facility] 2021-03-28 2021-03-28 Outpatient Sharron FISCHER [facility] [id number] Univers 09:30:00 09:30:00 CORETTA [id number] it o f [facility] 2021-03-28 2021-03-28 Outpatient Sharron FISCHER [facility] [id number] Univers 09:30:00 09:30:00 CORETTA ity o [facility] 2021-03-06 2021-03-06 Outpatient R VERITO [facility] [id number] Univers 13:00:00 13:00:00 DAKOTA [id number] ity o [facility] 2021-03-06 2021-03-06 Outpatient R VERITO [facility] [id number] Univers 13:00:00 13:00:00 JEANNENEVANDA ity o [facility] 2021-02-28 2021-02-28 Outpatient R VERITO [facility] [id number] Univers 08:45:00 08:45:00 MOISÉSNDCaridad [id number] ity o [facility] 2021-02-28 2021-02-28 Outpatient R VERITO [facility] [id number] Univers 08:45:00 08:45:00 JEANNENEVAAVERYA dimasy o [facility] 2021-02-27 2021-02-27 Outpatient R AKINSIPE, [facility] [id number] Univers 14:15:00 14:15:00 CORETTA [id number] y o [facility] 2021-02-27 2021-02-27 Outpatient R AKINSIPE, [facility] [id number] Univers 14:15:00 14:15:00 CORETTA ity o [facility] 2021-02-21 2021-02-21 Outpatient R VERITO [facility] [id number] Univers 13:15:00 13:15:00 MOISÉSNDCaridad [id number] ity o [facility] 2021-02-21 2021-02-21 Outpatient R VERITO [facility] [id number] Univers 13:15:00 13:15:00 MOISÉSNDA ity o [facility] 2021-02-21 2021-02-21 Outpatient R VERITO, [facility] [id number] Univers 13:15:00 13:15:00 MOISÉSNDCaridad ittova o [facility] 2020-02-29 2020-02-29 Outpatient SELLERS, [facility] [id number] Univers 09:00:00 09:00:00 DAKOTA ity o f [facility] 2020-02-29 2020-02-29 Outpatient R VERITO [facility] [id number] Univers 09:00:00 09:00:00 DAKOTA barajas o f [facility] 2020-01-04 2020-01-04 Outpatient R [facility] [id number] Univers 11:20:00 11:20:00 ity [facility] 2020-01-04 2020-01-04 Outpatient R [facility] [id number] Univers 11:20:00 11:20:00 ity [facility] 2019-11-16 2019-11-16 Outpatient R [facility] [id number] Univers 09:00:00 09:00:00 [id number] ity [facility] 2019-11-16 2019-11-16 Outpatient R [facility] [id number] Univers 09:00:00 09:00:00 [facility] Results This patient has no known results.
[2021-07-18] MEDS ORDERED: ACETAMINOPHEN 500 MG TAB ONE (23:31)
[2021-07-18 23:39] LABS: SARS-COV-2 RT PCR POSITIVE (NEGATIVE)
[2021-07-19] MEDS ORDERED: CASIRIVIMAB/IMDEVIMAB 10 ML VIAL ONE (00:36)
[2021-07-19] MEDS ORDERED: NA CHLORIDE 0.9% 250 ML ONE (00:37)
[2021-07-19] MEDS ORDERED: NA CHLORIDE 0.9% 100 ML ONE (00:37)
[2021-07-19 01:11] LABS: Absolute Lymphocytes (CBC) 1.6 K/uL (0.7-4.9); Basophils % 0.3 % (0-1.3); Hematocrit 42.4 % (36.0-45.0); Lymphocytes % 20.8 % (15.3-44.8); MPV 9.2 fL (7.6-11.3); RBC Red Blood Cell Count 4.74 M/uL (3.86-4.86)
[2021-07-19 01:26] LABS: Albumin 3.6 g/dL (3.4-5.0); Bilirubin Direct 0.1 mg/dL (0-0.2); Bilirubin Total 0.3 mg/dL (0.2-1.0); Potassium 3.5 mmol/L (3.5-5.1); Protein, Total 8.7 g/dL (6.4-8.2)
--- NOTE | 2021-07-19 04:09 | ER ---
Nurse's Notes [facility] Name: Maria Isabel Johnson Age: 30 yrs Sex: Female : 1990 Arrival Date: 07/18/2021 Time: 21:40 Bed 2 Private MD: Diagnosis: SARS-associated coronavirus as the cause of diseases classified elsewhere Presentation: 07/18 21:47 Chief complaint: Patient states: Chest pain beginning yesterday evening when I cough, ld1 denies chest pain at this current moment. I have been coughing a lot and my body feels like I have been beat up. Pt reports body aches, fever, cough, and diarrhea. Coronavirus screen: Client presents with at least one sign or symptom that may indicate coronavirus-19. Standard/surgical mask placed on the client. Ebola Screen: No symptoms or risks identified at this time. Initial Sepsis Screen: Does the patient meet any 2 criteria? No. Patient's initial sepsis screen is negative. Does the patient have a suspected source of infection? No. Patient's initial sepsis screen is negative. Risk Assessment: Do you want to hurt yourself or someone else? Patient reports no desire to harm self or others. Onset of symptoms was July 18, 2021. 21:47 Method Of Arrival: Ambulatory ld1 21:47 Acuity: SOLITARIO 3 ld1 Triage Assessment: 21:50 General: Appears in no apparent distress. comfortable, Behavior is calm, cooperative, ld1 appropriate for age. Pain: Denies pain. EENT: No signs and/or symptoms were reported regarding the EENT system. Neuro: Level of Consciousness is awake, alert, obeys commands, Oriented to person, place, time, situation, Appropriate for age. Cardiovascular: Capillary refill < 3 seconds Patient's skin is warm and dry. Respiratory: Airway is patent Respiratory effort is even, unlabored, Respiratory pattern is regular, symmetrical. GI: Abdomen is round non-distended, obese. GI: Reports diarrhea. : No signs and/or symptoms were reported regarding the genitourinary system. Derm: No signs and/or symptoms reported regarding the dermatologic system. Musculoskeletal: No signs and/or symptoms reported regarding the musculoskeletal system. 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 - Social history:: Smoking status: Patient denies any tobacco usage or history of. Patient/guardian denies using alcohol, street drugs. Screenin/19 02:16 Abuse screen: Denies threats or abuse. Denies injuries from another. Nutritional tw5 screening: No deficits noted. Tuberculosis screening: No symptoms or risk factors identified. Fall Risk None identified. Assessment: 02:16 General: Appears in no apparent distress. obese, Behavior is calm, cooperative, tw5 appropriate for age, Reports "Cough, fever, diarrhea, achy.". Pain: Complains of pain in " when I cough it is about a 9/10" Pain does not radiate. Pain began gradually. 02:43 Reassessment: Patient appears in no apparent distress at this time. Patient and/or tw5 family updated on plan of care and expected duration. Pain level reassessed. Patient is alert, oriented x 3, equal unlabored respirations, skin warm/dry/pink. 03:19 Reassessment: Patient appears in no apparent distress at this time. No changes from tw5 previously documented assessment. Vital Signs: 07/18 21:47 BP 144 / 93; Pulse 89; Resp 19; Temp 99.2(TE); Pulse Ox 98% on R/A; Weight 154.22 kg; ld1 Height 5 ft. 1 in. (154.94 cm); Pain 0/10; 23:49 BP 139 / 90; Pulse 78; Resp 17; Temp 100.1; Pulse Ox 96% on R/A; ld1 07/19 02:16 BP 124 / 76; Pulse 75; Resp 18; Pulse Ox 94% ; tw5 02:43 BP 121 / 76; Pulse 73; Resp 14; Pulse Ox 98% on R/A; tw5 03:19 Pulse 69; Resp 14; Pulse Ox 100% ; tw5 03:19 BP 118 / 75; tw5 04:26 BP 126 / 68; Pulse 75; Resp 20; Temp 98.8; Pulse Ox 97% on R/A; tw5 11/18 21:47 Body Mass Index 64.24 (154.22 kg, 154.94 cm) ld1 ED Course: 07/18 21:40 Patient arrived in ED. ja2 21:50 Triage completed. ld1 21:50 Arm band placed on left wrist. ld1 22:50 COVID-19/FLU A+B (Document "Date of Onset" if Symptomatic) Sent. ld1 07/19 00:01 Lee Gillespie PA is PHCP. cp 00:01 Kai Rubio MD is Attending Physician. cp 01:35 Inserted saline lock: 20 gauge in right antecubital area, using aseptic technique. ds4 Blood collected. 02:09 Rina Orona is Primary Nurse. tw5 02:16 Patient has correct armband on for positive identification. Call light in reach. Side tw5 rails up X 1. Pulse ox on. NIBP on. Door closed. Noise minimized. Lights dimmed. Moved to private room. Warm blanket given. Verbal reassurance given. 02:16 No provider procedures requiring assistance completed. Patient maintains SpO2 tw5 saturation greater than 95% on room air. 04:26 IV discontinued, intact, bleeding controlled, No redness/swelling at site. Pressure tw5 dressing applied. Administered Medications: 07/18 23:49 Drug: Tylenol 1000 mg Route: PO; ld1 23:49 Follow up: Response: No adverse reaction ld1 07/19 00:51 CANCELLED (Physician Discretion): NS 0.9% 500 ml IV at bolus once cp 02:16 Drug: Casirivimab-Imdevimab Dose Pack 120 mg/mL-120 mg/mL (EUA) 1 application Route: tw5 IV; Rate: calculated rate; Site: right antecubital; 04:27 Follow up: Response: No adverse reaction; IV Status: Completed infusion tw5 Outcome: 04:09 Discharge ordered by . cp 04:26 Discharged to home ambulatory. tw5 04:26 Condition: good 04:26 Discharge instructions given to patient, Instructed on discharge instructions, follow up and referral plans. Demonstrated understanding of instructions, Prescriptions given X 1. 04:33 Patient left the ED. tw5 Signatures: Jaison Sanders ds4 Lee Gillespie PA PA cp Dibbern, Lauren, RN RN ld1 Ariadne Dao ja2 Rina Orona tw5
--- NOTE | 2021-07-19 04:09 | EDPHYS ---
Physician Documentation [facility] Name: Maria Isabel Johnson Age: 30 yrs Sex: Female : 1990 Arrival Date: 07/18/2021 Time: 21:40 Bed 2 Private MD: ED Physician Kai Rubio HPI: 07/18 23:50 This 30 yrs old Female presents to ER via Ambulatory with complaints of Cough, cp Chest Pain. 23:50 The patient or guardian reports cough, that is intermittent. Onset: The cp symptoms/episode began/occurred yesterday. Severity of symptoms: in the emergency department the symptoms are unchanged, despite home interventions. Associated signs and symptoms: Pertinent positives: chest pain, with cough, diarrhea, fever, sore throat, body aches. 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 - Social history:: Smoking status: Patient denies any tobacco usage or history of. Patient/guardian denies using alcohol, street drugs. ROS: 23:55 Constitutional: Positive for body aches, fever, Negative for poor PO intake. cp 23:55 Eyes: Negative for injury, pain, redness, and discharge. cp 23:55 ENT: Positive for sore throat, Negative for drainage from ear(s), ear pain, difficulty swallowing, difficulty handling secretions. 23:55 Cardiovascular: Positive for chest pain, with cough. 23:55 Respiratory: Positive for cough, Negative for shortness of breath, wheezing. 23:55 Abdomen/GI: Positive for diarrhea, Negative for abdominal pain, vomiting, constipation. 23:55 Neuro: Negative for altered mental status, headache, weakness. 23:55 All other systems are negative. Exam: 23:58 Constitutional: The patient appears in no acute distress, alert, awake, cp non-diaphoretic, non-toxic, well developed, well nourished, obese. 23:58 Head/Face: Normocephalic, atraumatic. cp 23:58 Eyes: Periorbital structures: appear normal, Conjunctiva: normal, no exudate, no injection, Sclera: no appreciated abnormality, Lids and lashes: appear normal, bilaterally. 23:58 ENT: External ear(s): are unremarkable, Nose: is normal, Mouth: Lips: moist, Oral mucosa: moist, Posterior pharynx: Airway: no evidence of obstruction, patent, Tonsils: no enlargement, no exudate, erythema, that is mild, exudate, is not appreciated. 23:58 Chest/axilla: Inspection: normal. 23:58 Cardiovascular: Rate: normal, Rhythm: regular. 23:58 Respiratory: the patient does not display signs of respiratory distress, Respirations: normal, no use of accessory muscles, no retractions, labored breathing, is not present, Breath sounds: are clear throughout, no decreased breath sounds, no stridor, no wheezing. 23:58 Abdomen/GI: Exam negative for discomfort, distension, guarding, Inspection: abdomen appears normal. 23:58 Neuro: Orientation: to person, place \\T\\ time. Mentation: is normal. Vital Signs: 21:47 BP 144 / 93; Pulse 89; Resp 19; Temp 99.2(TE); Pulse Ox 98% on R/A; Weight 154.22 kg; ld1 Height 5 ft. 1 in. (154.94 cm); Pain 0/10; 23:49 BP 139 / 90; Pulse 78; Resp 17; Temp 100.1; Pulse Ox 96% on R/A; ld1 07/19 02:16 BP 124 / 76; Pulse 75; Resp 18; Pulse Ox 94% ; tw5 02:43 BP 121 / 76; Pulse 73; Resp 14; Pulse Ox 98% on R/A; tw5 03:19 Pulse 69; Resp 14; Pulse Ox 100% ; tw5 03:19 BP 118 / 75; tw5 04:26 BP 126 / 68; Pulse 75; Resp 20; Temp 98.8; Pulse Ox 97% on R/A; tw5 07/18 21:47 Body Mass Index 64.24 (154.22 kg, 154.94 cm) ld1 MDM: 00:41 Patient medically screened. cp 01:00 Differential Diagnosis: Bronchitis Influenza Sinusitis Otitis Media Viral Syndrome cp Pneumonia. 04:08 Data reviewed: vital signs, nurses notes, lab test result(s). cp 04:08 ED course: VSS. Patient reports symptoms improved. No signs of respiratory distress and cp patient appears non-toxic. Will discharge to home for continued monitoring. 07/18 22:43 Order name: COVID-19/FLU A+B (Document "Date of Onset" if Symptomatic); Complete Time: ld1 00:29 07/19 01:31 Interpretation: Reviewed. cp 07/19 00:38 Order name: CBC with Diff; Complete Time: 01:29 cp 07/19 01:29 Interpretation: Normal except: MCV 89.5; MCH 28.9; MN% 16.7. cp 07/19 00:38 Order name: BMP; Complete Time: 01:29 cp 07/19 01:29 Interpretation: Normal except: GLUC 125; GFR 81. cp 07/19 00:38 Order name: LFT's; Complete Time: 01:29 cp 07/19 01:30 Interpretation: Normal except: TP 8.7; GLOB 5.1; A/G 0.7. cp 07/19 02:29 Order name: Strep cp 07/19 04:07 Order name: Throat Culture EDNE 07/19 00:38 Order name: IV; Complete Time: 01:57 cp Administered Medications: 07/18 23:49 Drug: Tylenol 1000 mg Route: PO; ld1 23:49 Follow up: Response: No adverse reaction ld1 07/19 00:51 CANCELLED (Physician Discretion): NS 0.9% 500 ml IV at bolus once cp 02:16 Drug: Casirivimab-Imdevimab Dose Pack 120 mg/mL-120 mg/mL (EUA) 1 application Route: tw5 IV; Rate: calculated rate; Site: right antecubital; 04:27 Follow up: Response: No adverse reaction; IV Status: Completed infusion tw5 Disposition: 06:19 Co-signature as Attending Physician, Kai Rubio MD. [email or web address] Disposition Summary: 07/19/21 04:09 Discharge Ordered Location: Home cp Problem: new cp Symptoms: have improved cp Condition: Stable cp Diagnosis - SARS-associated coronavirus as the cause of diseases classified elsewhere cp Followup: cp - With: Private Physician - When: 2 - 3 days - Reason: Worsening of condition Discharge Instructions: - Discharge Summary Sheet cp - Form - Excuse from Work, School, or Physical Activity cp - COVID-19 cp - Things to Know about the COVID-19 Pandemic - [facility] cp - 10 Things You Can Do to Manage Your COVID-19 Symptoms at Home - [facility] cp - COVID-19: Quarantine vs. Isolation - [facility] cp - Prevent the Spread of COVID-19 if You Are Sick - [facility] cp Forms: - Medication Reconciliation Form cp - Thank You Letter cp - Antibiotic Education cp - Prescription Opioid Use cp - Work release form bb Prescriptions: - Tessalon Perles 100 mg Oral Capsule - take 2 capsule by ORAL route every 8 hours As needed; 30 capsule; Refills: 0, cp Product Selection Permitted Signatures: Dispatcher [employer] EDMS Lee Gillespie PA PA cp Kai Rubio MD MD 7 Nya Rosa RN RN ld1 Rina Orona 5 Corrections: (The following items were deleted from the chart) 00:51 00:40 NS 0.9% 500 ml IV at bolus once ordered. cp cp
[2021-07-19 05:17] VITALS: BP 126/68; TEMP 98.8; O2SAT 97
== END 2021-07-19 04:33 | disposition home or self-care (01) ==
LOC: ER 21:39
DX: U07.1 COVID-19 (principal)
CPT/HCPCS: 0240U; 36415; 80048; 80076; 85025; 87070; 87081; 96365; 96366; 99284; J7050; M0243

== ENCOUNTER 2023-06-27 07:27 | Emergency (ER) | payer OTHER, SELFPAY ==
--- OUTSIDE RECORDS SUMMARY | 2023-06-27 07:31 | XMS REPORT | Continuity of Care Document ---
:1990 Author Organization [facility] t Address [address] [facility] [place] [address] Care Team Providers Name Role Phone Campos Dickson MD Primary Care Physician [phone] RADHA JONES Attending Clinician Unavailable LIZ MAYO Attending Clinician Unavailable Karen Radha GALDAMEZ Attending Clinician [phone] Doctor Unassigned, [place] Attending Clinician [facility]available [facility] Attending Clinician Unavailable Ana Cristina Finley LVN Attending Clinician MERYL AVILA Attending Clinician Unavailable Ana Rosa Villarreal NP Attending Clinician Meryl Avila DO Attending Clinician Thanh Dennison Attending Clinician THANH SELLERS Attending Clinician Unavailable ERASMO DE SOUZA Attending Clinician Unavailable MERYL AVILA Admitting Clinician Unavailable Meryl Avila DO Admitting Clinician Payers Payer Name Policy Type Policy Number Effective Date Expiration Date Ruth SAAB CVS 9 [id number] 2023 00:00:00 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[employer] [address] [facility] [id number] 2019 00:00:00 Problems Condition Condition Condition Status Onset Resolution Last Treating Co mments Source Name Details Category Date Date Treatment Clinician Date Sepsis Sepsis Disease Active 2021-08 Univers 2-09 ity of 00:00: [place] 00 Medical Branch Obesity Obesity Disease Active 2021-08 Univers (BMI (BMI 2-09 ity of 30-39.9) 30-39.9) 00:00: [place] [facility] Other Other Disease Active Univers general general 7-08 ity of counseling counseling 00:00: [place] and advice and advice 00 Ma dical for for Branch contracept contracept fei fei management management Elevated Elevated Disease Active Unive rs blood blood 7- ity of pressure pressure 00:00: [place] reading reading 00 Medical without without Branch diagnosis diagnosis of of hypertensi hypertensi on on Morbid Morbid Disease Active Univers obesity obesity 7 ity of 00:00: [place] [facility] Acute Acute Disease Active Univers viral viral 5-06 ity of pharyngiti pharyngiti 00:00: [place] [facility] Diarrhea, Diarrhea, Disease Active Uni vers unspecifie unspecifie 5-06 it y of d type d type 00:00: [place] [facility] Cough in Cough in Disease Active Unive rs adult adult 5- ity of 00:00: [place] [facility] Loss of Loss of Disease Active Univers smell smell 5-06 ity of 00:00: [address] Branch Screening Screening Disease Active Uni vers examinatio examinatio 3-14 it y of n for STD n for STD 00:00: [place] s (sexually (sexually 00 Medi gibran transmitte transmitte Br anch d disease) d disease) Irregular Irregular Disease Active Uni vers menstrual menstrual 3-14 ity of bleeding bleeding 00:00: [place] [facility] Acute Acute Disease Active Univers pancreatit pancreatit 2-13 it y of is is 00:00: [place] [facility] Allergies, Adverse Reactions, Alerts Allergy Allergy Status Severity Reaction(s) Onset Inactive Treating Comm ents Source Name Type Date Date Clinician NO KNOWN Drug Active Univers ALLERGIE Class ity of S [facility] Social History Social Habit Start Date Stop Date Quantity Comments Source History of tobacco Cigarette Smoker University of use [place] [facility] [place] History SDOH University o f Alcohol Frequency [place] [facility] History SDOH University o f Alcohol Std Drinks [place] [facility] [place] History SDPR University o f Alcohol Binge [place] [facility] Gender identity Universit y of [facility] Sexual orientation Univer sity of [facility] Tobacco use and 2023-04-21 2023-04-21 Smokeless Universit y of exposure 00:00:00 00:00:00 tobacco non-user [facility] dical [place] Alcohol intake 2023-04-21 2023-04-21 Current drinker Unive rsity of 00:00:00 00:00:00 of alcohol [place] [facility] Branch History of Social 2023-04-21 2023-04-21 Univers ity of function 00:00:00 00:00:00 [facility] Tobacco Comment 2023-04-21 2023-04-21 vapes Universit y of 00:00:00 00:00:00 [facility] Exposure to 2022-08-29 2022-09-08 Not sure University of SARS-CoV-2 (event) 00:00:00 08:38:00 [facility] Alcohol Comment 2021-03-06 2021-03-06 socially Universit y of 00:00:00 00:00:00 [facility] Sex [birth year] At [birth year] Universit y of 00:00:00 00:00:00 [facility] Smoking Status Start Date Stop Date Source Ex-smoker 2023-04-21 00:00:00 2023-04-21 00:00:00 Universi ty of [facility] Medications Ordered Filled Start Stop Current Ordering Indication Dosage Frequency Signature Comments Components Source Medication Medication Date Date Medication? Clinician (SIG) Name Name maury 2021-08 Yes 100mg 100 mg, Unive rs (COLACE) 2-12 Oral, ity of capsule 100 15:00: [place] 00 First dose Medical on Mon Branch 08/11/22 at 0900, Until Discontinu ed, Routine ciprofloxac 2021-08- No [id number] 500mg Take 1 Univers in HCl 500 2-12 12-20 tablet by ity of mg tablet 00:00: 05:59 mouth [place] 00 :00 every 12 Medical (twelve) Branch hours for 7 days. ciprofloxac 2021-08- No [id number] 500mg Take 1 Univers in HCl 500 2-12 12-20 tablet by ity of mg tablet 00:00: 05:59 mouth [place] 00 :00 every 12 Medical (twelve) Branch hours for 7 days. cefTRIAXone 2021-08 No 2000mg 2,000 mg, Univers (ROCEPHIN) 10-1118 IV ity of 2,000 mg in 16:00: 15:59 [place], [place] NaCl 0.9% 00 :00 Q24H ABX, Medic al (NS) 100 mL 7 doses, Bran MINI-BAG First dose (after last modificati on) on 08/10/22 at 1000, Last dose on 08/16/22 at 1000, Administer over 30 Minutes, 100 mL
Reas on for Anti-Infec tive: Documented Infection< br>Documen ursula Infection Site: Urine
D uration of Therapy: 7 days NaCl 0.9% 2021-08 No 1000mL at 150 Uni vers (NS) IV 10-11 mL/hr, ity of infusion 06:15: 15:35 [place]venou [place] 1,000 mL 00 :36 s, Medical CONTINUOUS Branch , Starting on [place] 08/10/22 at 0015, Until [place] 08/10/22 at 0935, ERNIE ketorolac 2021-08 No 15mg 15 mg, Unive rs (TORADOL) 10-11 Slow IV ity of injection 03:15: 02:35 Push, [place] 15 mg 00 :00 ONCE, 1 Medical dose, On Branch 08/09/22 at 2115, Routine cefTRIAXone 2021-08 No 1000mg 1,000 mg, Univers (ROCEPHIN) 10-10-10 IV ity of 1,000 mg in 18:30: 19:12 [place], [place] NaCl 0.9% 00 :00 ONCE, 1 Medical (NS) 50 mL dose, On [facility] h MINI-BAG 08/09/22 at 1230, Administer over 30 Minutes, 50 mL
Reas on for Anti-Infec tive: Documented Infection< br>Documen ursula Infection Site: Blood<br&g t;Duration of Therapy: Other (see Comments) pantoprazol 2021-08 Yes 40mg 40 mg, Univ ers e 2-10 Oral, ity of (PROTONIX) 16:30: DAILY, [place] EC tablet 00 First dose Medi gibran 40 mg on [facility] Branch 08/09/22 at 1030, Until Discontinu ed, Routine cefTRIAXone 2021-08- No 1000mg 1,000 mg, Univers (ROCEPHIN) 2- 12-10 IV ity of 1,000 mg in 16:00: 17:37 [place], [place] NaCl 0.9% 00 :00 Q24H ABX, Medic al (NS) 50 mL 5 doses, Branc h MINI-BAG First dose (after last modificati on) on [facility] 08/09/22 at 1000, Last dose on Thu08/13/22 at 1000, Administer over 30 Minutes, 50 mL
Reas on for Anti-Infec tive: Documented Infection< br>Documen ursula Infection Site: Urine
D uration of Therapy: 7 days enoxaparin 2021-08 Yes 40mg 40 mg, Unive rs (LOVENOX) 2-10 Subcutaneo ity of injection 15:00: [place], [place]ILY, [place] 40 mg 00 First dose Medical on [facility] Branch 08/09/22 at 0900, Until Discontinu ed, Routine traZODone 2021-08 Yes 50mg 50 mg, Univer s (DESYREL) 2-10 Oral, QHS, ity of tablet 50 05:45: [place] dose [place] mg 00 on Thu Medical 08/08/22 at Branch 2345, Until Discontinu ed, Routine LORazepam 2021-08- No .5mg 0.5 mg, Univ ers (ATIVAN) 2- 12-11 Slow IV ity of injection 05:33: 15:16 Push, PRN, [place] 0.5 mg 22 :00 1 dose, Medical Starting Branch on Thu08/08/22 at 2333, Until Discontinu ed, Routine, Anxiety morpHINE (2 2021-08- No 2mg 2 mg, Slow Univers mg/mL) 2- 12-10 IV Push, ity of injection 2 04:45: 04:05 ONCE, 1 [place] mg 00 :00 dose, On Medical Fri Branch 08/08/22 at 2245, Routine proMETHazin 2021-08 Yes 12.5mg 12.5 mg, Univers e 2-10 IV ity of (PHENERGAN) 04:16: [place], [place] 12.5 mg in 27 Q4HPRN, Medica l NaCl 0.9% Starting Branch (NS) 50 mL on Fri IV 08/08/22 at piggyback 2216, Until Discontinu ed, Routine, N/V unresponsi ve to Ondansetro n morpHINE (2 2021-08 Yes 2mg 2 mg, Slow Univers mg/mL) 2-10 IV Push, ity of injection 2 04:16: Q4HPRN, [place] as mg 16 Starting Medical on Fri Branch 08/08/22 at 2216, Until Discontinu ed, Routine, Pain (scale 7-10) alum-mag 2021-08- No 30mL 30 mL, Univer s hydroxide-s 2-10 12-10 Oral, ity of imeth 01:43: 16:18 Q6HP, [place] (MAALOX 02 :29 Starting Medical PLUS / on Fri Branch MAG-AL 08/08/22 at PLUS) 1943, 200-200-20 Until Sat mg/5 mL 08/09/22 suspension at 1018, 30 mL Routine, Indigestio n ondansetron 2021-08 Yes 4mg 4 mg, Slow Univers (ZOFRAN 2-09 IV Push, ity of (PF)) 23:33: [place], [place] injection 4 04 Starting Medi gibran mg on Fri Branch 08/08/22 at 1733, Until Discontinu ed, Routine, Nausea and Vomiting (N/V) HYDROcodone 2021-08- No 1{tbl} 1 tablet, Univers -acetaminop 2- 12-10 Oral, ity of hen (NORCO) 23:32: 04:16 Q6HPRN, [place] 10-325 mg 59 :44 Starting Medica l tablet 1 on Fri Branch tablet 08/08/22 at 1732, Until 08/08/22 at 2216, Routine, Pain (scale 7-10) ibuprofen 2021-08 Yes 200mg 200 mg, Univ ers (MOTRIN IB) 2-09 Oral, ity of tablet 200 23:32: Q6HPRN, [place] mg 47 Starting Medical on Fri Branch 08/08/22 at 1732, Until Discontinu ed, Routine, Pain (scale 1-3) NaCl 0.9% 2021-08 No 1700mL at 150 Uni vers (NS) IV 10-09- mL/hr, ity of infusion 22:45: 06:11 Intravenou [place] 1,700 mL 00 :08 s, Medical CONTINUOUS Branch , Starting on Thu08/08/22 at 1645, Until 08/10/22 at 0011, ERNIE ketorolac 2021-08 No 30mg 30 mg, Unive rs (TORADOL) 10-09 Slow IV ity of injection 22:45: 22:12 Push, [place] 30 mg 00 :00 ONCE, 1 Medical dose, On Branch Thu08/08/22 at 1645, Routine No known 2021-08 No No known Unive rs medications 10-09 medication it y of 21:47: s [place] 08 Medical Branch ondansetron 2021-08 No 4mg 4 mg, Slow Univers (ZOFRAN 10-09 IV Push, ity of (PF)) 21:45: 22:11 ONCE, 1 [place] injection 4 00 :00 dose, On Medi gibran mg Fri Branch 08/08/22 at 1545, ERNIE cefTRIAXone 2021-08- No 1000mg 1,000 mg, Univers (ROCEPHIN) 10-09 IV ity of 1,000 mg in 21:45: 22:55 [place], [place] NaCl 0.9% 00 :00 ONCE, 1 Medical (NS) 50 mL dose, On Branc h MINI-BAG Thu08/08/22 at 1545, Administer over 30 Minutes, 50 mL
Reas on for Anti-Infec tive: Documented Infection< br>Documen ursula Infection Site: Urine<br&g t;Duration of Therapy: 7 days butorphanol 2021-08 No 1mg 1 mg, IV U nivers (STADOL) 10-09 Push, ity of injection 1 18:45: 18:13 ONCE, 1 [place] mg 00 :00 dose, On Medical Fri Branch 08/08/22 at 1245, Routine NaCl 0.9% 2021-08 No 1000mL at 999 Uni vers (NS) bolus 10-09 mL/hr, ity of infusion 18:45: 21:12 1,000 mL, [place] as 1,000 mL 00 :00 IV Medical Infusion, Branch ONCE, 1 dose, On Thu08/08/22 at 1245, ERNIE iopamidol 2021-08- No [id number] 85mL 85 mL, U nivers (ISOVUE 10-09 Intravenou ity o f 370-500 mL) 18:15: 18:30 s, ONCE, 1 [place] injection 00 :00 dose, On Medica l 85 mL Fri Branch 08/08/22 at 1230, Routine ondansetron 2021-08- No 4mg 4 mg, Slow Univers (ZOFRAN 10-09 IV Push, ity of (PF)) 18:00: 18:11 ONCE, 1 [place] injection 4 00 :00 dose, On Medi gibran mg Thu Branch 08/08/22 at 1200, ERNIE No known 2021-08 No No known Unive rs medications 0-07 medication it y of 16:26: [address] No known 2021-08 No No known Unive rs medications 0-07 medication it y of 16:26: [address] No known No No known Unive rs medications 7-08 medication it y of 08:41: [address] No known 2021- No No known Unive rs medications 7-08 medication it y of 08:41: [address] No known No No known Unive rs medications 7-08 medication it y of 08:41: [address] norethindro 2021- No [id number] 1{tbl} Take 1 Univers ne 0.35 mg 03-28- tablet by ity of tablet 00:00: 00:00 mouth [place] 00 :00 daily. Medical Branch norgestimat 2021- No [id number] 1{tbl} Take 1 Univers e-ethinyl 03-06- tablet by ity of estradioL 00:00: 00:00 mouth [place] 0.18/0.215/ 00 :00 daily. Medica l 0.25 mg-35 Branch mcg (28) tablet Vital Signs Vital Name Observation Time Observation Value Comments Source Systolic blood 2023-04-21 13:34:00 130 mm[Hg] Univer sity of pressure [place] [facility] Diastolic blood 2023-04-21 13:34:00 85 mm[Hg] Unive rsity of pressure [place] [facility] Heart rate 2023-04-21 13:34:00 59 /min Universi ty of [place] [facility] Body temperature 2023-04-21 13:34:00 36.56 [place] Anne Univ ersity of [place] [facility] Respiratory rate 2023-04-21 13:34:00 20 /min Univ ersity of [place] [facility] Body height 2023-04-21 13:34:00 154.9 cm Universi ty of [place] [facility] Body weight 2023-04-21 13:34:00 100.88 kg Universi ty of [place] [facility] BMI 2023-04-21 13:34:00 42.02 kg/m2 Universi ty of [place] [facility] Systolic blood 2022-09-08 14:41:00 112 mm[Hg] Univer sity of pressure [place] [facility] Diastolic blood 2022-09-08 14:41:00 84 mm[Hg] Unive rsity of pressure [place] [facility] Heart rate 2022-09-08 14:39:00 68 /min Universi ty of [place] [facility] Body temperature 2022-09-08 14:39:00 36.39 Mary Anne Univ ersity of [place] [facility] Respiratory rate 2022-09-08 14:39:00 18 /min Univ ersity of [place] [facility] Body weight 2022-09-08 14:39:00 96.163 kg Universi ty of [place] [facility] BMI 2022-09-08 14:39:00 40.06 kg/m2 Universi ty of [place] [facility] Systolic blood 2022-08-11 13:12:00 121 mm[Hg] Univer sity of pressure [place] [facility] Diastolic blood 2022-08-11 13:12:00 75 mm[Hg] Unive rsity of pressure [place] [facility] Heart rate 2022-08-11 13:12:00 50 /min Universi ty of [place] [facility] Body temperature 2022-08-11 13:12:00 36.44 Mary [place] Univ ersity of [place] [facility] Respiratory rate 2022-08-11 13:12:00 18 /min Univ ersity of [place] [facility] Oxygen saturation in 2022-08-11 13:12:00 99 /min University of Arterial blood by [facility] Pulse oximetry Branch Body weight 2022-08-09 09:17:00 96.979 kg Universi ty of [place] [facility] [place] BMI 2022-08-09 09:17:00 40.40 kg/m2 Universi ty of [place] [facility] [place] Body height 2022-08-08 23:31:00 154.9 cm Universi ty of [place] [facility] [place] Systolic blood 2022-06-05 20:43:00 135 mm[Hg] Univer sity of pressure [facility] Diastolic blood 2022-06-05 20:43:00 84 mm[Hg] Unive rsity of pressure [facility] Heart rate 2022-06-05 20:43:00 67 /min Universi ty of [facility] Body temperature 2022-06-05 20:43:00 36.89 Mary Anne Univ ersity of [facility] Respiratory rate 2022-06-05 20:43:00 20 /min Univ ersity of [facility] Body height 2022-06-05 20:43:00 154.9 cm Universi ty of [place] [facility] [place] Body weight 2022-06-05 20:43:00 109.43 kg Universi ty of [place] [facility] BMI 2022-06-05 20:43:00 45.58 kg/m2 Universi ty of [facility] Branch Systolic blood 2022-05-08 13:04:00 137 mm[Hg] Univer sity of pressure [place] [facility] Diastolic blood 2022-05-08 13:04:00 88 mm[Hg] Unive rsity of pressure [facility] Heart rate 2022-05-08 13:04:00 58 /min Universi ty of [place] [facility] [place] Body temperature 2022-05-08 13:04:00 36.56 Mary Anne Univ ersity of [facility] Respiratory rate 2022-05-08 13:04:00 20 /min Univ ersity of [facility] Body height 2022-05-08 13:04:00 154.9 cm Universi ty of [place] [facility] Body weight 2022-05-08 13:04:00 111.948 kg Universi ty of [place] [facility] BMI 2022-05-08 13:04:00 46.63 kg/m2 Universi ty of [facility] Systolic blood 2022-03-07 13:26:00 127 mm[Hg] Univer sity of pressure [facility] Diastolic blood 2022-03-07 13:26:00 84 mm[Hg] [facility] Heart rate 2022-03-07 13:26:00 57 /min [facility] Body temperature 2022-03-07 13:26:00 36.17 Mary Anne [facility] Respiratory rate 2022-03-07 13:26:00 20 /min [facility] height 2022-03-07 13:26:00 154.9 cm [facility] Body weight 2022-03-07 13:26:00 122.188 kg [facility] BMI 2022-03-07 13:26:00 50.90 kg/m2 [facility] Procedures Procedure Date / Time Performing Clinician Source Performed ASSIGNMENT OF BENEFITS 2023-04-21 13:13:00 Doctor Unassigned, Un [facility] [place] [facility] POCT TEST 2023-04-21 00:00:00 Radha Jones [facility] GARDASIL 9 (HPV 9V) 2022-09-08 14:40:05 Radha Jones [facility] VACCINE [facility] BASIC METABOLIC PANEL 2022-08-11 10:07:00 Mike Reyes [facility] (NA, K, CL, CO2, GLUCOSE, Medica l Branch BUN, CREATININE, CA) CBC WITH DIFF 2022-08-11 10:07:00 Mike Reyes [place] [facility] BASIC METABOLIC PANEL 2022-08-10 10:12:00 Concepción Ellsworth [facility] (NA, K, CL, CO2, GLUCOSE, Medica l Branch BUN, CREATININE, CA) CBC WITH DIFF 2022-08-10 10:12:00 Concepción Ellsworth [facility] BLOOD CULTURE SCREEN 2022-08-10 02:19:00 Meryl Avila [facility] BASIC METABOLIC PANEL 2022-08-09 09:21:00 Concepción Ellsworth [facility] (NA, K, CL, CO2, GLUCOSE, Medica l Branch BUN, CREATININE, CA) CBC WITH DIFF 2022-08-09 09:21:00 Concepción Ellsworth [facility] BLOOD CULTURE SCREEN 2022-08-08 22:07:00 Ana Rosa Villarreal [facility] BLOOD CULTURE WORKUP 2022-08-08 22:07:00 Ana Rosa Villarreal [facility] BLOOD CULTURE WORKUP 2022-08-08 22:07:00 Ana Rosa Villarreal [facility] GRAM NEGATIVE BLOOD 2022-08-08 22:07:00 Ana Rosa Villarreal [facility] PATHOGENS DNA [facility] PROBE-ANAEROBIC LACTIC ACID WHOLE BLOOD 2022-08-08 21:51:00 Ana Rosa Villarreal [facility] CT ABDOMEN PELVIS W 2022-08-08 18:27:26 Ana Rosa Villarreal [facility] CONTRAST [facility] RAPID INFLUENZA A/B 2022-08-08 18:15:00 Ana Rosa Villarreal [facility] COVID-19 (ID NOW RAPID 2022-08-08 18:15:00 Ana Rosa Villarreal [facility] TESTING) [facility] LAB ONLY COVID 2022-08-08 18:15:00 Ana Rosa Villarreal [facility] INTERPRETATION [facility] POCT TEST 2022-08-08 18:08:00 Ana Rosa Villarreal [facility] LIPASE 2022-08-08 18:07:00 Ana Rosa Villarreal [facility] MAGNESIUM 2022-08-08 18:07:00 Ana Rosa Villarreal [facility] TROPONIN I 2022-08-08 18:07:00 Ana Rosa Villarreal [facility] COMP. METABOLIC PANEL 2022-08-08 18:07:00 Ana Rosa Villarreal [facility] ([id number]) [facility] CBC WITH DIFF 2022-08-08 18:07:00 Ana Rosa Villarreal [facility] URINALYSIS 2022-08-08 18:07:00 Ana Rosa Villarreal [facility] CONSENT/REFUSAL FOR 2022-08-08 17:39:20 Doctor Unassigned, [facility] DIAGNOSIS AND TREATMENT [place] [facility] CRITICAL CARE 2022-08-08 17:37:00 Ana Rosa Villarreal [facility] CBC WITH DIFF 2022-06-05 21:08:00 Radha Jones [facility] GC & CHLAMYDIA AMPLIFIED 2022-06-05 21:08:00 Radha Jones [facility] TRICHOMONAS AMPLIFIED 2022-06-05 21:08:[address] [facility] GARD[facility]IL 9 (HPV 9V) 2022-05-08 13:20:06 Radha Jones [facility] IMMTRAC2 CONSENT 2022-03-18 05:01:00 Doctor Unasswilfrido, [facility] [place] [facility] GARDASIL 9 (HPV 9V) 2022-03-07 14:10:00 Radha Jones [facility] Encounters Start End Encounter Admission Attending Care Care Encounter Source Date/Time Date/Time Type Type Clinicians Facility Department ID 2021-07-01 Emergency [facility] [id number] Univers 10:57:39 ity [facility] 2021-06-28 Emergency [facility] [id number] Univers 12:43[facility] 2023-05-13 2023-05-13 Outpatient ELBA MAYO [id number] [place] 08:00:00 08:00:00 LIZ gomez 2023-04-21 2023-04-21 Outpatient R KAREN [facility] [id number] Univers 08:15:00 09:06:02 RADHA barajas o f [facility] 2023-04-21 2023-04-21 Office Karen RUST [id number] Univers 08:15:00 09:06:02 Visit Radha Martin [employer] [id number] ity [facility] [id number] Jesus as MATERNAL [id number] Med ical & CHILD [address] [place] [address] 2023-04-21 2023-04-21 Orders Doctor SHERMAN [id number] Univers 00:00:00 00:00:00 Only Unassigned, PROSPER [id number] ity of [place] [facility] [id number] Jesus as [id number] [facility] 009 Branch 2023-03-09 2023-03-09 Outpatient R KAREN, [facility] [id number] Univers 08:15:00 08:15:00 RADHA barajas o f [facility] 2022-09-08 2022-09-08 Outpatient R KAREN, [facility] [id number] Univers 08:00:00 08:23:09 RADHA barajas o f [facility] 2022-09-08 2022-09-08 Nurse Visit, [facility] Nurse RUST [id number] Univers 08:00:00 08:23:09 Visit Radha Jones [employer] [id number]. 10 ity of [facility] [id number] Jesus as MATERNAL [id number] Med ical & CHILD [address] [place] [address] 2022-08-12 2022-08-12 Transition OSIEL Finley [id number] Univers 00:00:00 00:00:00 of Care Ana Cristina WEAVER [id number] ity of [id number] [place] [id number] [facility] 403 Branch 2022-08-08 2022-08-11 Inpatient X [facility] [id number] Univers 11:54:00 11:20:00 MERYL barajas of [facility] 2022-08-08 2022-08-11 [facility] Blaiserussell Ana Rosa Alva RUST [id number]. [id number] Univers 11:54:00 11:20:00 Encounter Meryl Avila [id number] ity of [place]2.7.2.686 [place] [id number] [facility] 081 Branch 2022-06-05 2022-06-05 Outpatient R KAREN, [facility] [id number] Univers 15:30:00 16:07:43 RADHAGLENN barajas o f [facility] 2022-06-05 2022-06-05 Office [facility] [id number] Univers 15:30:00 16:07:43 Visit Radha C [employer] [id number] ity of [facility] [id number] Jesus as MATERNAL [id number] [facility] & CHILD [address] [place] [address] 2022-06-03 2022-06-03 [facility] [id number] Univers 00:00:00 00:00:00 Radha C [employer] [id number] ity of REGIONAL [id number] Jesus as MATERNAL [id number] [address] 2022-05-08 2022-05-08 Nurse Visit, [facility] Nurse RUST [id number] .[id number] Univers 08:00:00 08:13:59 Visit Thanh Sellers [employer] [id number] ity of REGIONAL [id number] Jesus as MATERNAL [id number] [address] 2022-05-08 2022-05-08 Outpatient R VERITO [facility] [id number] Univers 08:00:00 08:00:00 THANH barajas o f [facility] 2022-03-18 2022-03-[address] [id number] Univers 00:00:00 00:00:00 Only Unassigned, PROS[place] [id number] ity of [place] [facility] [id number] Jesus as [phone] [address] 2022-03-07 2022-03-07 Office [facility] [id number] Univers 08:15:00 09:09:19 Visit Radha Martin VARNISH BLENDER [id number] ity of [facility] [id number] Jesus as MATERNAL [phone] [facility] & CHILD [address] [place] [address] 2022-03-07 2022-03-07 Outpatient R KAREN, [facility] [id number] Univers 08:15:00 09:09:19 RADHA mireles [facility] 2022-03-07 2022-03-07 Outpatient R AKINSIPE, [facility] [id number] Univers 08:15:00 08:15:00 RADHA barajas o [facility] 2022-03-07 2022-03-[address] [id number] Univers 00:00:00 00:00:00 Only Unassigned, [facility] [id number] ity of [place] [facility] [id number] Jesus as [phone] [address] 2021-06-06 2021-06-06 Outpatient R AP, [facility] [id number] Univers 09:45:00 09:45:00 ERASMO barajas [facility] 2021-03-28 2021-03-28 Outpatient R KAREN, [facility] [id number] Univers 09:30:00 09:30:00 RADHA barajas o [facility] 2021-03-06 2021-03-06 Outpatient R SELLERS, [facility] [id number] Univers 13:00:00 13:00:00 THANH barajas o [facility] 2021-02-28 2021-02-28 Outpatient R SELELRS, [facility] [id number] Univers 08:45:00 08:45:00 THANH barajas o [facility] 2021-02-27 2021-02-27 Outpatient R AKINKALPE, [facility] [id number] Univers 14:15:00 14:15:00 RADHA barajas o [facility] 2021-02-21 2021-02-21 Outpatient R SELLERS, [facility] [id number] Univers 13:15:00 13:15:00 SARAHA karl o [facility] 2021-02-21 2021-02-21 Outpatient R VERITO, [facility] [id number] Univers 13:15:00 13:15:00 SARAHA ity o [facility] 2020-02-29 2020-02-29 Outpatient R VERITO [facility] [id number] Univers 09:00:00 09:00:00 THANH sidhu [facility] 2020-01-04 2020-01-04 Outpatient R [facility] [id number] Univers 11:20:00 11:20:00 [facility] 2019-11-16 2019-11-16 Outpatient R [facility] [id number] Univers 09:00:00 09:00:00 [facility] Results Test Description Test Time Test Comments Results Result Comments Source POCT TEST 2023-04-21 13:36:00 Test Item Value Reference Range Interpretation Comme nts POCT PREG (test code = 1605) Negative On board controls acceptable with C Line (test code = 3574) Yes POCT PREG LOT # (test code = 3575) POCT PREG TEST DATE (test code = 3576) [id number] 13:36:00 Test Item Value Reference Range Interpretation Comments POCT PREG (test code = 1605) Negative On board controls acceptable with C Yes Line (test code = 3574) POCT PREG LOT # (test code = 3575) POCT PREG TEST DATE (test code = 3576) [facility] # [id number] 14:19:02 Test Item Value Reference Range Interpretation Comments Blood Culture-Aerobic Culture positive. No growth AA P revious (test code = 99815-2) See Blood Culture p reliminary Workup for verified result additional was Culture In information. Progress on 08/09/2022 at 0552 LEGAL OFFICER Blood Culture positive. No growth AA Previous Culture-Anaerobic See Blood Culture preli minary (test code = 47095-7) Workup for verifi ed result additional was Culture In information. Progress on 08/08/2022 at 20 01 LEGAL OFFICER Lab Interpretation Abnormal (test code = 56785-4) [facility] Culture - Peripheral # [id number] 14:18:57 Test Item Value Reference Range Interpretation Comments Blood Culture-Aerobic Culture positive. No growth AA G lilliam negative (test code = 20487-6) See Blood Culture b acilli Previous Workup for preliminary additional verified result information. was Culture In Progress on 08/09/2022 at 0553 LEGAL OFFICER Blood Culture positive. No growth AA Previous Culture-Anaerobic See Blood Culture preli minary (test code = 84523-4) Workup for verifi ed result additional was Culture In information. Progress on 08/08/2022 at 20 01 LEGAL OFFICER Lab Interpretation Abnormal (test code = 71248-6) [facility] PATHOGENS DNA [id number] 22:17:33 Test Item Value Reference Range Interpretation Comments Escherichia coli (test Positive Negative, See A code = 39961-0) Comment/Narrative SHER (test code = SHER) See blood culture result for additional information. ?Testing included eight identification and six resistance marker targets. Lab Interpretation Abnormal (test code = 16995-0) [facility] with [id number] 11:22:52 Test Item Value Reference Range Interpretation Comments WBC (test code = See_Comment H [Automated 5690-2) message] The sy stem which generated this result transmitted reference range : 4.30 - 11.10 10*3/?L. The reference range was not used to interpret this result as normal/abnormal . RBC (test code = See_Comment L [Automated 789-8) message] The sy stem which generated this result transmitted reference range : 3.93 - 5.25 10*6/?L. The reference range was not used to interpret this result as normal/abnormal . HGB (test code = 12.1 g/dL 11.6-15.0 718-7) HCT (test code = 38.3 % 35.7-45.2 4544-3) MCV (test code = 98.7 fL 80.6-95.5 H 787-2) MCH (test code = 31.2 pg 25.9-32.8 785-6) MCHC (test code = 31.6 g/dL 31.6-35.1 786-4) RDW-SD (test code = 49.5 fL 39.0-49.9 01478-7) RDW-CV (test code = 13.5 % 12.0-15.5 788-0) PLT (test code = See_Comment [Automated 777-3) message] The sy stem which generated this result transmitted reference range : 166 - 358 10*3/ ?L. The reference r eric was not used to interpret this result as normal/abnormal . MPV (test code = 13.2 fL 9.5-12.9 H 20542-1) IPF % (test code = 10.8 % 1.3-7.7 H Platelet count 7267322055) measured by fluorescence method. NRBC/100 WBC (test See_Comment [Automat ed code = 0726411453) message] The system which generated this result transmitted reference range : 0.0 - 10.0 /100 WBCs. The refer ence range was not u sed to interpret th is result as normal/abnormal . NRBC x10^3 (test code See_Comment [Auto mated = 5129504151) message] The s ystem which generated this result transmitted reference range : 10*3/?L. The reference range was not used to interpret this result as normal/abnormal . GRAN MAT (NEUT) % 79.7 % (test code = 770-8) IMM GRAN % (test code 0.80 % = 9149035180) LYMPH % (test code = 8.7 % 736-9) MONO % (test code = 10.6 % 5905-5) EOS % (test code = 0.0 % 713-8) BASO % (test code = 0.2 % 706-2) GRAN MAT x10^3(ANC) 14.06 10*3/uL 1.88-7.09 H (test code = 3403189922) IMM GRAN x10^3 (test 0.15 10*3/uL 0.00-0.06 H code = 1721386423) LYMPH x10^3 (test 1.54 10*3/uL 1.32-3.29 code = 731-0) MONO x10^3 (test code 1.88 10*3/uL 0.33-0.92 H = 742-7) EOS x10^3 (test code 0.03-0.39 L = 711-2) BASO x10^3 (test code 0.03 10*3/uL 0.01-0.07 = 704-7) Lab Interpretation Abnormal (test code = 05936-7) [facility] Metabolic Panel (NA, K, CL, CO2, GLUCOSE, BUN, CREATININE, CA)2022-08-09 10:46:28 Test Item Value Reference Range Interpretation Comments NA (test code = 140 mmol/L 135-145 6643823890) K (test code = 4.0 mmol/L 3.5-5.0 9730014765) CL (test code = 107 mmol/L 98-108 4601751325) CO2 TOTAL (test code = 28 mmol/L 23-31 8585831699) AGAP (test code = 2-16 6395344234) BUN (test code = 13 mg/dL 7-23 0671850943) GLUCOSE (test code = 127 mg/dL 70-110 H 6511124683) CREATININE (test code = 0.69 mg/dL 0.50-1.04 7098682354) CALCIUM (test code = 8.5 mg/dL 8.6-10.6 L 1943266722) eGFR (test code = mL/min/1.73m2 1606734796) SHER (test code = SHER) Association of Glomerular Filtration Rate (GFR) and Staging of Kidney Disease* + --+ --+ ------+| GFR (mL/min/1.73 m2) ?| With Kidney Damage ?| ?Without Kidney Damage+ --------+ --------+ +| ?>90 ?| ?Stage one ?| ? Normal ?+ ---+ ---+ -------+| ?60-89 ?| ?Stage two ?| ? Decreased GFR ? + --+ --+ ------+| ?30-59 ?| ?Stage three ?| ? Stage three ? + --+ --+ ------+| ?15-29 ?| ?Stage four ? | ? Stage four ?+ ---+ ---+ -------+| ?<15 (or dialysis) ? ?| ?Stage five ? | ? Stage five ?+ ---+ ---+ -------+ *Each stage assumes the associated GFR level has been in effect for at least three months. ?Stages 1 to 5, with or without kidney disease, indicate chronic kidney disease. Notes: Determination of stages one and two (with eGFR >59mL/min/1.73 m2) requires estimation of kidney damage for at least three months as defined by structural or functional abnormalities of the kidney, manifested by either:Pathological abnormalities or Markers of kidney damage (including abnormalities in the composition of the blood or urine or abnormalities in imaging tests). Lab Interpretation Abnormal (test code = 57540-3) [facility] [id number] 18:08:00 Test Item Value Reference Range Interpretation Comments POCT PREG (test code = 1605) NEGATIVE On board controls acceptable with PRESENT C Line (test code = 3574) POCT PREG LOT # (test code = 3575) [id number] POCT PREG TEST DATE (test 11/29/2023 code = 3576) Lab Interpretation (test code = Normal 82848-2) [facility] WITH [id number] 05:15:16 Test Item Value Reference Range Interpretation Comments WBC (test code = See_Comment [Automated 9790-2) message] The sy stem which generated this result transmitted reference range : 4.30 - 11.10 10*3/?L. The reference range was not used to interpret this result as normal/abnormal . RBC (test code = See_Comment [Automated 029-8) message] The sy stem which generated this result transmitted reference range : 3.93 - 5.25 10*6/?L. The reference range was not used to interpret this result as normal/abnormal . HGB (test code = 12.6 g/dL 11.6-15 718-7) HCT (test code = 39.7 % 35.7-45.2 4544-3) MCV (test code = 98.8 fL 80.6-95.5 H 787-2) MCH (test code = 31.3 pg 25.9-32.8 785-6) MCHC (test code = 31.7 g/dL 31.6-35.1 786-4) RDW-SD (test code = 50.1 fL 39-49.9 H 27428-8) RDW-CV (test code = 13.7 % 12-15.5 788-0) PLT (test code = See_Comment [Automated 827-3) message] The sy stem which generated this result transmitted reference range : 166 - 358 10*3/ ?L. The reference r eric was not used to interpret this result as normal/abnormal . MPV (test code = 12.8 fL 9.5-12.9 33183-4) NRBC/100 WBC (test See_Comment [Automat ed code = 6219059312) message] The system which generated this result transmitted reference range : 0.0 - 10.0 /100 WBCs. The refer ence range was not u sed to interpret th is result as normal/abnormal . NRBC x10^3 (test code See_Comment [Auto mated = 8554340443) message] The s ystem which generated this result transmitted reference range : 10*3/?L. The reference range was not used to interpret this result as normal/abnormal . GRAN MAT (NEUT) % 61.6 % (test code = 770-8) IMM GRAN % (test code 0.20 % = 0722330989) LYMPH % (test code = 28.8 % 736-9) MONO % (test code = 7.8 % 5905-5) EOS % (test code = 1.3 % 713-8) BASO % (test code = 0.3 % 706-2) GRAN MAT x10^3(ANC) 6.85 10*3/uL 1.88-7.09 (test code = 4493350973) IMM GRAN x10^3 (test 0-0.06 code = 9440544259) LYMPH x10^3 (test code 3.19 10*3/uL 1.32-3.29 = 731-0) MONO x10^3 (test code 0.86 10*3/uL 0.33-0.92 = 742-7) EOS x10^3 (test code = 0.14 10*3/uL 0.03-0.39 711-2) BASO x10^3 (test code 0.03 10*3/uL 0.01-0.07 = 704-7) Lab Interpretation Abnormal (test code = 88458-7) [facility] WITH [id number] 05:15:16 Test Item Value Reference Range Interpretation Comments WBC (test code = See_Comment [Automated 9490-2) message] The sy stem which generated this result transmitted reference range : 4.30 - 11.10 10*3/?L. The reference range was not used to interpret this result as normal/abnormal . RBC (test code = See_Comment [Automated 319-8) message] The sy stem which generated this result transmitted reference range : 3.93 - 5.25 10*6/?L. The reference range was not used to interpret this result as normal/abnormal . HGB (test code = 12.6 g/dL 11.6-15 718-7) HCT (test code = 39.7 % 35.7-45.2 4544-3) MCV (test code = 98.8 fL 80.6-95.5 H 787-2) MCH (test code = 31.3 pg 25.9-32.8 785-6) MCHC (test code = 31.7 g/dL 31.6-35.1 786-4) RDW-SD (test code = 50.1 fL 39-49.9 H 92414-1) RDW-CV (test code = 13.7 % 12-15.5 788-0) PLT (test code = See_Comment [Automated 777-3) message] The sy stem which generated this result transmitted reference range : 166 - 358 10*3/ ?L. The reference r eric was not used to interpret this result as normal/abnormal . MPV (test code = 12.8 fL 9.5-12.9 85898-8) NRBC/100 WBC (test See_Comment [Automat ed code = 7171821963) message] The system which generated this result transmitted reference range : 0.0 - 10.0 /100 WBCs. The refer ence range was not u sed to interpret th is result as normal/abnormal . NRBC x10^3 (test code See_Comment [Auto mated = 5591780344) message] The s ystem which generated this result transmitted reference range : 10*3/?L. The reference range was not used to interpret this result as normal/abnormal . GRAN MAT (NEUT) % 61.6 % (test code = 770-8) IMM GRAN % (test code 0.20 % = 0261071129) LYMPH % (test code = 28.8 % 736-9) MONO % (test code = 7.8 % 5905-5) EOS % (test code = 1.3 % 713-8) BASO % (test code = 0.3 % 706-2) GRAN MAT x10^3(ANC) 6.85 10*3/uL 1.88-7.09 (test code = 4321446007) IMM GRAN x10^3 (test 0-0.06 code = 6011082209) LYMPH x10^3 (test code 3.19 10*3/uL 1.32-3.29 = 731-0) MONO x10^3 (test code 0.86 10*3/uL 0.33-0.92 = 742-7) EOS x10^3 (test code = 0.14 10*3/uL 0.03-0.39 711-2) BASO x10^3 (test code 0.03 10*3/uL 0.01-0.07 = 704-7) Lab Interpretation Abnormal (test code = 12465-1) [facility]"
--- NOTE | 2023-06-27 08:30 | RAD REPORT ---
EXAM DESCRIPTION: CT - Head Brain Wo Cont - 06/27/2023 8:20 am CLINICAL HISTORY: PAIN COMPARISON: Head Brain Wo Cont dated 05/30/2018; Facial Bones W/ Mpr dated 06/27/2023 TECHNIQUE: All CT scans are performed using dose optimization technique as appropriate and may inclu de automated exposure control or mA/KV adjustment according to patient size. FINDINGS: No intracranial hemorrhage, hydrocephalus or extra-axial fluid collection.No areas of brai n edema or evidence of midline shift. The paranasal sinuses and mastoids are clear. The calvarium is intact. IMPRESSION: No acute intracranial abnormality.
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
[2023-06-27] MEDS ORDERED: TDAP (DIPHTH,PERTUSS(ACELL),TET VAC) 0.5 ML VIAL IMVAC ONE (09:14)
[2023-06-27 09:39] VITALS: BP 135/92; TEMP 99.3; O2SAT 100
== END 2023-06-27 09:34 | disposition home or self-care (01) ==
LOC: ER 07:27
DX: S09.93XA Unspecified injury of face, initial encounter (principal); S01.302A Unspecified open wound of left ear, initial encounter; H11.33 Conjunctival hemorrhage, bilateral; R51.9 Headache, unspecified
CPT/HCPCS: 70450; 70486; 76377; 96372; 99284

== ENCOUNTER 2023-12-23 15:03 | Emergency (ER) | payer OTHER ==
--- OUTSIDE RECORDS SUMMARY | 2023-12-23 15:05 | XMS REPORT | Continuity of Care Document ---
Author Name Unknown Address [address] [facility] [place] [address] [facility] Address [address] [facility] [address] [place] [address] Care Team Providers Care Tub Attendant Name Role Phone Randolph MANRIQUE, Campos Mclean Primary Care Physician + [phone] RADHA JONES Attending Clinician Unavail LIZ Booth Attending Clinician Unavailable Karen Radha GALDAMEZ Attending Clinician + Doctor Unassigned, [place] Attending Clinician U Cem Dupree-jaclynp Nurse Attending Clinician Unava Ana Cristina Rome LVN Attending Clinician [phone] MERYL AVILA Attending Clinician Unavailable Ana Rosa Villarreal NP Attending Clinician [phone] Merly Avila DO Attending Clinician [phone] Thanh Dennison Attending Clinician [phone] THANH SELLERS Attending Clinician UnavailERASMO Craig Attending Clinician UnavailMERYL Yancey Admitting Clinician Unavailable Meryl Avila DO Admitting Clinician [phone] Payers Payer Name Policy Type Policy Number Effective Date Expirati on Date Source KATIANA HAYNES 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 9 [id number] 2023 00:00:00 MONIQUEW-EUN [id number] 2019 00:00:00 Problems Condition Name Condition Details Condition Category Status Onset Date Resolution Date Last Treatment Date Treating Clinician Comments Source Sepsis Sepsis Disease Active 2021-08 2 00:00: 00 [facility] Obesity (BMI 30-39.9) Obesity (BMI 30-39.9) Disease Active 2021-08 00:00: 00 [facility] Other general counseling and advice for contracept fei management Other general counseling and advice for contracept fei management Disease Active 7- 00:00: 00 [facility] Elevated blood pressure reading without diagnosis of hypertensi on Elevated blood pressure reading without diagnosis of hypertensi on Disease Active 7- 00:00: 00 [facility] Morbid obesity Morbid obesity Disease Active 7 00:00: 00 [facility] Acute viral pharyngiti s Acute viral pharyngiti s Disease Active 01-03 00:00: 00 [facility] Diarrhea, unspecifie d type Diarrhea, unspecifie d type Disease Active 5- 00:00: 00 [facility] Cough in adult Cough in adult Disease Active 5 00:00: 00 [facility] Loss of smell Loss of smell Disease Active 5- 00:00: 00 [facility] Screening examinatio n for STD (sexually transmitte d disease) Screening examinatio n for STD (sexually transmitte d disease) Disease Active 3-14 00:00: 00 [facility] Irregular menstrual bleeding Irregular menstrual bleeding Disease Active 3-14 00:00: 00 [facility] Acute pancreatit is Acute pancreatit is Disease Active 2-13 00:00: 00 [facility] Allergies, Adverse Reactions, Alerts Allergy Name Allergy Type Status Severity Reaction(s) Onset Date Inactive Date Treating Clinician Comments Source NO KNOWN ALLERGIE S Drug Class Active [facility] Social History Social Habit Start Date Stop Date Quantity Comments Source History of tobacco use Cigarette Smoker [facility] History SDOH Alcohol Frequency [facility] History SDOH Alcohol Std Drinks [facility] History SDOH Alcohol Binge [facility] Gender identity [facility] Sexual orientation [facility] Tobacco use and exposure 2023-04-21 00:00:00 2023-04-21 00:00:00 Smokeless tobacco non-user [facility] Alcohol intake 2023-04-21 00:00:00 2023-04-21 00:00:00 Current drinker of alcohol (finding) [facility] History of Social function 2023-04-21 00:00:00 2023-04-21 00:00:00 [facility] Tobacco Comment 2023-04-21 00:00:00 2023-04-21 00:00:00 vapes [facility] Exposure to SARS-CoV-2 (event) 2022-08-29 00:00:00 2022-09-08 08:38:00 Not sure [facility] Alcohol Comment 2021-03-06 00:00:00 2021-03-06 00:00:00 socially [facility] Sex Assigned At 1990 00:00:00 1990 00:00:00 [facility] Smoking Status Start Date Stop Date Source Ex-smoker 2023-04-21 00:00:00 2023-04-21 00:00:00 [facility] Medications Ordered Medication Name Filled Medication Name Start Date Stop Date Current Medication? Ordering Clinician Indication Dosage Frequency Signature (SIG) Comments Components Source docusate (COLACE) capsule 100 mg 2021-08 15:00: 00 Yes 100mg 100 mg, Oral, DAILY, First dose on Thu08/11/22 at 0900, Until Discontinu ed, Routine [facility] ciprofloxac in HCl 500 mg tablet 2021-08 00:00: 00 08-19 05:59 :00 No [id number] 500mg Take 1 tablet by mouth every 12 (twelve) hours for 7 days. [facility] cefTRIAXone (ROCEPHIN) 2,000 mg in NaCl 0.9% (NS) 100 mL MINI-BAG 2021-08 16:00: 00 08-17 15:59 :00 No 2000mg 2,000 mg, IV Piggyback, Q24H ABX, 7 doses, First dose (after last modificati on) on 08/10/22 at 1000, Last dose on 08/16/22 at 1000, Administer over 30 Minutes, 100 mL
Reas on for Anti-Infec tive: Documented Infection< br>Documen ursula Infection Site: Urine
D uration of Therapy: 7 days [facility] NaCl 0.9% (NS) IV infusion 1,000 mL 2021-08 06:15: 00 08-10 15:35 :36 No 1000mL at 150 mL/hr, Intravenou s, CONTINUOUS , Starting on [place] 08/10/22 at 0015, Until [place] 08/10/22 at 0935, ERNIE [facility] ketorolac (TORADOL) injection 15 mg 2021-08 03:15: 00 08-10 02:35 :00 No 15mg 15 mg, Slow IV Push, ONCE, 1 dose, On [facility] 08/09/22 at 2115, Routine [facility] cefTRIAXone (ROCEPHIN) 1,000 mg in NaCl 0.9% (NS) 50 mL MINI-BAG 2021-08 18:30: 00 08-09 19:12 :00 No 1000mg 1,000 mg, IV Piggyback, ONCE, 1 dose, On 08/09/22 at 1230, Administer over 30 Minutes, 50 mL
Reas on for Anti-Infec tive: Documented Infection< br>Documen ursula Infection Site: Blood
D uration of Therapy: Other (see Comments) [facility] pantoprazol e (PROTONIX) EC tablet 40 mg 2021-08 16:30: 00 Yes 40mg 40 mg, Oral, DAILY, First dose on 08/09/22 at 1030, Until Discontinu ed, Routine [facility] cefTRIAXone (ROCEPHIN) 1,000 mg in NaCl 0.9% (NS) 50 mL MINI-BAG 2021-08 16:00: 00 08-09 17:37 :00 No 1000mg 1,000 mg, IV Piggyback, Q24H ABX, 5 doses, First dose (after last modificati on) on Thu08/09/22 at 1000, Last dose on Thu08/13/22 at 1000, Administer over 30 Minutes, 50 mL
Reas on for Anti-Infec tive: Documented Infection< br>Documen ursula Infection Site: Urine
D uration of Therapy: 7 days [facility] enoxaparin (LOVENOX) injection 40 mg 2021-08 15:00: 00 Yes 40mg 40 mg, Subcutaneo us, DAILY, First dose on Thu08/09/22 at 0900, Until Discontinu ed, Routine [facility] traZODone (DESYREL) tablet 50 mg 2021-08 05:45: 00 Yes 50mg 50 mg, Oral, QHS, First dose on Thu08/08/22 at 2345, Until Discontinu ed, Routine [facility] LORazepam (ATIVAN) injection 0.5 mg 2021-08 05:33: 22 08-10 15:16 :00 No .5mg 0.5 mg, Slow IV Push, PRN, 1 dose, Starting on Thu08/08/22 at 2333, Until Discontinu ed, Routine, Anxiety [facility] morpHINE (2 mg/mL) injection 2 mg 2021-08 04:45: 00 08-09 04:05 :00 No 2mg 2 mg, Slow IV Push, ONCE, 1 dose, On Thu08/08/22 at 2245, Routine [facility] proMETHazin e (PHENERGAN) 12.5 mg in NaCl 0.9% (NS) 50 mL IV piggyback 2021-08 04:16: 27 Yes 12.5mg 12.5 mg, IV Piggyback, Q4HPRN, Starting on Thu08/08/22 at 2216, Until Discontinu ed, Routine, N/V unresponsi ve to Ondansetro n [facility] morpHINE (2 mg/mL) injection 2 mg 2021-08 04:16: 16 Yes 2mg 2 mg, Slow IV Push, Q4HPRN, Starting on Thu08/08/22 at 2216, Until Discontinu ed, Routine, Pain (scale 7-10) [facility] alum-mag hydroxide-s imeth (MAALOX PLUS / MAG-AL PLUS) 200-200-20 mg/5 mL suspension 30 mL 2021-08 01:43: 02 08-09 16:18 :29 No 30mL 30 mL, Oral, Q6HPRN, Starting on Thu08/08/22 at 1943, Until 08/09/22 at 1018, Routine, Indigestio n [facility] ondansetron (ZOFRAN (PF)) injection 4 mg 2021-08 23:33: 04 Yes 4mg 4 mg, Slow IV Push, Q6HPRN, Starting on Thu08/08/22 at 1733, Until Discontinu ed, Routine, Nausea and Vomiting (N/V) [facility] HYDROcodone -acetaminop hen (NORCO) 10-325 mg tablet 1 tablet 2021-08 23:32: 59 08-09 04:16 :44 No 1{tbl} 1 tablet, Oral, Q6HPRN, Starting on Thu08/08/22 at 1732, Until Thu08/08/22 at 2216, Routine, Pain (scale 7-10) [facility] ibuprofen (MOTRIN IB) tablet 200 mg 2021-08 23:32: 47 Yes 200mg 200 mg, Oral, Q6HPRN, Starting on Thu08/08/22 at 1732, Until Discontinu ed, Routine, Pain (scale 1-3) [facility] NaCl 0.9% (NS) IV infusion 1,700 mL 2021-08 22:45: 00 08-10 06:11 :08 No 1700mL at 150 mL/hr, Intravenou s, CONTINUOUS , Starting on Thu08/08/22 at 1645, Until 08/10/22 at 0011, ERNIE [facility] ketorolac (TORADOL) injection 30 mg 2021-08 22:45: 00 08-08 22:12 :00 No 30mg 30 mg, Slow IV Push, ONCE, 1 dose, On Thu08/08/22 at 1645, Routine [facility] No known medications 2021-08 21:47: 08 No No known medication s [facility] ondansetron (ZOFRAN (PF)) injection 4 mg 2021-08 21:45: 00 08-08 22:11 :00 No 4mg 4 mg, Slow IV Push, ONCE, 1 dose, On Thu08/08/22 at 1545, ERNIE [facility] cefTRIAXone (ROCEPHIN) 1,000 mg in NaCl 0.9% (NS) 50 mL MINI-BAG 2021-08 21:45: 00 08-08 22:55 :00 No 1000mg 1,000 mg, IV Piggyback, ONCE, 1 dose, On Thu08/08/22 at 1545, Administer over 30 Minutes, 50 mL
Reas on for Anti-Infec tive: Documented Infection< br>Documen ursula Infection Site: Urine
D uration of Therapy: 7 days [facility] butorphanol (STADOL) injection 1 mg 2021-08 18:45: 00 08-08 18:13 :00 No 1mg 1 mg, IV Push, ONCE, 1 dose, On Thu08/08/22 at 1245, Routine [facility] NaCl 0.9% (NS) bolus infusion 1,000 mL 2021-08 18:45: 00 08-08 21:12 :00 No 1000mL at 999 mL/hr, 1,000 mL, IV Infusion, ONCE, 1 dose, On Thu08/08/22 at 1245, ERNIE [facility] iopamidol (ISOVUE 370-500 mL) injection 85 mL 2021-08 18:15: 00 08-08 18:30 :00 No [id number] 85mL 85 mL, Intravenou s, ONCE, 1 dose, On Thu08/08/22 at 1230, Routine [facility] ondansetron (ZOFRAN (PF)) injection 4 mg 2021-08 18:00: 00 08-08 18:11 :00 No 4mg 4 mg, Slow IV Push, ONCE, 1 dose, On Thu08/08/22 at 1200, ERNIE [facility] No known medications 2021-08 0 16:26: 28 No No known medication s [facility] No known medications 03-07 08:41: 08 No No known medication [facility] norethindro ne 0.35 mg tablet 03-28 00:00: 00 03-07 00:00 :00 No [id number] 1{tbl} Take 1 tablet by mouth daily. [facility] norgestimat e-ethinyl estradioL 0.18/0.215/ 0.25 mg-35 mcg (28) tablet 03-06 00:00: 00 03-07 00:00 :00 No [id number] 1{tbl} Take 1 tablet by mouth daily. [facility] Vital Signs Vital Name Observation Time Observation Value Comments S [facility] Systolic blood pressure 2023-04-21 13:34:00 130 mm[Hg] [facility] Diastolic blood pressure 2023-04-21 13:34:00 85 mm[Hg] [facility] Heart rate 2023-04-21 13:34:00 59 /min [facility] Body temperature 2023-04-21 13:34:00 36.56 Mary Anne [facility] Respiratory rate 2023-04-21 13:34:00 20 /min [facility] Body height 2023-04-21 13:34:00 154.9 cm [facility] Body weight 2023-04-21 13:34:00 100.88 kg [facility] BMI 2023-04-21 13:34:00 42.02 kg/m2 [facility] Systolic blood pressure 2022-09-08 14:41:00 112 mm[Hg] [facility] Diastolic blood pressure 2022-09-08 14:41:00 84 mm[Hg] [facility] Heart rate 2022-09-08 14:39:00 68 /min [facility] Body temperature 2022-09-08 14:39:00 36.39 Mary Anne [facility] Respiratory rate 2022-09-08 14:39:00 18 /min [facility] Body weight 2022-09-08 14:39:00 96.163 kg [facility] BMI 2022-09-08 14:39:00 40.06 kg/m2 [facility] Systolic blood pressure 2022-08-11 13:12:00 121 mm[Hg] [facility] Diastolic blood pressure 2022-08-11 13:12:00 75 mm[Hg] [facility] Heart rate 2022-08-11 13:12:00 50 /min [facility] Body temperature 2022-08-11 13:12:00 36.44 Mary Anne [facility] Respiratory rate 2022-08-11 13:12:00 18 /min [facility] Oxygen saturation in Arterial blood by Pulse oximetry 2022-08-11 13:12:00 99 /min [facility] Body weight 2022-08-09 09:17:00 96.979 kg [facility] BMI 2022-08-09 09:17:00 40.40 kg/m2 [facility] Body height 2022-08-08 23:31:00 154.9 cm [facility] Systolic blood pressure 2022-06-05 20:43:00 135 mm[Hg] [facility] Diastolic blood pressure 2022-06-05 20:43:00 84 mm[Hg] [facility] Heart rate 2022-06-05 20:43:00 67 /min [facility] Body temperature 2022-06-05 20:43:00 36.89 Mary Anne [facility] Respiratory rate 2022-06-05 20:43:00 20 /min [facility] Body height 2022-06-05 20:43:00 154.9 cm [facility] Body weight 2022-06-05 20:43:00 109.43 kg [facility] BMI 2022-06-05 20:43:00 45.58 kg/m2 [facility] Systolic blood pressure 2022-05-08 13:04:00 137 mm[Hg] [facility] Diastolic blood pressure 2022-05-08 13:04:00 88 mm[Hg] [facility] Heart rate 2022-05-08 13:04:00 58 /min [facility] Body temperature 2022-05-08 13:04:00 36.56 Mary Anne [facility] Respiratory rate 2022-05-08 13:04:00 20 /min [facility] Body height 2022-05-08 13:04:00 154.9 cm [facility] Body weight 2022-05-08 13:04:00 111.948 kg [facility] BMI 2022-05-08 13:04:00 46.63 kg/m2 [facility] Systolic blood pressure 2022-03-07 13:26:00 127 mm[Hg] [facility] Diastolic blood pressure 2022-03-07 13:26:00 84 mm[Hg] [facility] Heart rate 2022-03-07 13:26:00 57 /min [facility] Body temperature 2022-03-07 13:26:00 36.17 Mary Anne [facility] Respiratory rate 2022-03-07 13:26:00 20 /min [facility] Body height 2022-03-07 13:26:00 154.9 cm [facility] Body weight 2022-03-07 13:26:00 122.188 kg [facility] BMI 2022-03-07 13:26:00 50.90 kg/m2 [facility] Procedures Procedure Date / Time Performed Performing Clinician Source ASSIGNMENT OF BENEFITS 2023-04-21 13:13:00 Docto r Unassigned, [place] [facility] POCT TEST 2023-04-21 00:00:00 Boni Jones [facility] GARDASIL 9 (HPV 9V) VACCINE 2022-09-08 14:40:05 Radha Jones [facility] BASIC METABOLIC PANEL (NA, K, CL, CO2, GLUCOSE, BUN, CREATININE, CA) 2022-08-11 10:07:00 Mike Reyes [facility] CBC WITH DIFF 2022-08-11 10:07:00 Mike Reyes [facility] BASIC METABOLIC PANEL (NA, K, CL, CO2, GLUCOSE, BUN, CREATININE, CA) 2022-08-10 10:12:00 Concepción Ellsworth [facility] CBC WITH DIFF 2022-08-10 10:12:00 Concepción Ellsworth [facility] BLOOD CULTURE SCREEN 2022-08-10 02:19:00 Meryl Avila [facility] BASIC METABOLIC PANEL (NA, K, CL, CO2, GLUCOSE, BUN, CREATININE, CA) 2022-08-09 09:21:00 Concepción Ellsworth [facility] CBC WITH DIFF 2022-08-09 09:21:00 Seng Concepción [facility] BLOOD CULTURE SCREEN 2022-08-08 22:07:00 Gene Villarreal [facility] BLOOD CULTURE WORKUP 2022-08-08 22:07:00 Gene Villarreal [facility] BLOOD CULTURE WORKUP 2022-08-08 22:07:00 Gene Villarreal [facility] GRAM NEGATIVE BLOOD PATHOGENS DNA PROBE-ANAEROBIC 2022-08-08 22:07:00 Ana Rosa Villarreal [facility] LACTIC ACID WHOLE BLOOD 2022-08-08 21:51:00 Daniel Villarreal [facility] CT ABDOMEN PELVIS W CONTRAST 2022-08-08 18:27:26 Ana Rosa Villarreal [facility] RAPID INFLUENZA A/B 2022-08-08 18:15:00 Ana Rosa Villarreal [facility] COVID-19 (ID NOW RAPID TESTING) 2022-08-08 18:15:00 Ana Rosa Villarreal [facility] LAB ONLY COVID INTERPRETATION 2022-08-08 18:15:00 Ana Rosa Villarreal [facility] POCT TEST 2022-08-08 18:08:00 Ana Rosa Villarreal [facility] LIPASE 2022-08-08 18:07:00 Ana Rosa Villarreal [facility] MAGNESIUM 2022-08-08 18:07:00 Ana Rosa Villarreal [facility] TROPONIN I 2022-08-08 18:07:00 Ana Rosa Villarreal [facility] COMP. METABOLIC PANEL ([id number]) 2022-08-08 18:07:00 Ana Rosa Villarreal [facility] CBC WITH DIFF 2022-08-08 18:07:00 Ana Rosa Villarreal [facility] URINALYSIS 2022-08-08 18:07:00 Ana Rosa Villarreal [facility] CONSENT/REFUSAL FOR DIAGNOSIS AND TREATMENT 2022-08-08 17:39:20 Doctor Unassigned, [place] [facility] CRITICAL CARE 2022-08-08 17:37:00 Ana Rosa Villarreal [facility] CBC WITH DIFF 2022-06-05 21:08:00 Radha Jones [facility] GC & CHLAMYDIA AMPLIFIED ASSAY 2022-06-05 21:08:00 Radha Jones [facility] TRICHOMONAS AMPLIFIED ASSAY 2022-06-05 21:08:00 Radha Jones [facility] GARDASIL 9 (HPV 9V) VACCINE 2022-05-08 13:20:06 Radha Jones [facility] [id number] CONSENT 2022-03-18 05:01:00 Doctor Unas signed, [place] [facility] GARDASIL 9 (HPV 9V) VACCINE 2022-03-07 14:10:00 Radha Jones [facility] Encounters Start Date/Time End Date/Time Encounter Type Admission Type Attending Clinicians Care Facility Care Department Encounter ID Source 2021-07-01 10:57:39 Emergency [facility] [id number] [facility] 2021-06-28 12:43:22 Emergency [facility] [id number] [facility] 2023-05-13 08:00:00 2023-05-13 08:00:00 Outpatient LIZ MAYO [id number] Elba Draper 2023-04-21 08:15:00 2023-04-21 09:06:02 Outpatient R RADHA JONES [facility] [id number] [facility] 2023-04-21 08:15:00 2023-04-21 09:06:02 Office Visit Radha Jones [facility] CHILD [facility] [id number] [id number] [id number] [id number] [facility] 2023-04-21 00:00:00 2023-04-21 00:00:00 Orders Only Doctor Unassigned, [place] [facility] .840.114 350.1.13.10 4.2.7.2.686 [id number] [facility] 2023-03-09 08:15:00 2023-03-09 08:15:00 Outpatient R RADHA JONES [facility] [id number] [facility] 2022-09-08 08:00:00 2022-09-08 08:23:09 Outpatient R RADHA JONES [facility] [id number] [facility] 2022-09-08 08:00:00 2022-09-08 08:23:09 Nurse Visit Visit, Ang-Rmchp Nurse Radha Jones [facility]ILD [facility] .840.114 350.1.13.10 [id number] [id number] [facility] 2022-08-12 00:00:00 2022-08-12 00:00:00 Transition of Care Ana Cristina Finley ..840.114 350.1.13.10 4.2.7.2.686 [id number] [facility] 2022-08-08 11:54:00 2022-08-11 11:20:00 Inpatient Celeste AVILA MERYL [facility] [id number] [facility] 2022-08-08 11:54:00 2022-08-11 11:20:00 Hospital Encounter Ana Rosa Villarreal Meryl [facility] [id number] 350.1.13.10 4.2.7.2.686 [id number] [facility] 2022-06-05 15:30:00 2022-06-05 16:07:43 Outpatient R RADHA JONES [facility] [id number] [facility] 2022-06-05 15:30:00 2022-06-05 16:07:43 Office Visit Radha Jones [facility] [id number] 350.1.13.10 4.2.7.2.686 [id number] [facility] 2022-06-03 00:00:00 2022-06-03 00:00:00 Telephone Radha Jones [facility] CHILD [facility] [id number] [id number] [id number] [id number] [facility] 2022-05-08 08:00:00 2022-05-08 08:13:59 Nurse Visit Visit, Ang-Rmchp Nurse Thanh Sellers [facility] [id number] 350.1.13.10 4.2.7.2.686 [id number] [facility] 2022-05-08 08:00:00 2022-05-08 08:00:00 Outpatient THANH ROGERS [facility] [id number] [facility] 2022-03-18 00:00:00 2022-03-18 00:00:00 Orders Only Doctor Unassigned, [place] [facility] [id number] 350.1.13.10 4.2.7.2.686 [id number] [facility] 2022-03-07 08:15:00 2022-03-07 09:09:19 Office Visit Radha Jones [facility] [id number] 350.1.13.10 4.2.7.2.686 [id number] [facility] 2022-03-07 08:15:00 2022-03-07 09:09:19 Outpatient R RADHA JONES [facility] [id number] [facility] 2022-03-07 08:15:00 2022-03-07 08:15:00 Outpatient R RADHA JONES [facility] [id number] [facility] 2022-03-07 00:00:00 2022-03-07 00:00:00 Orders Only Doctor Unassigned, [place] [facility] [id number] 350.1.13.10 [id number] [id number] [facility] 2021-06-06 09:45:00 2021-06-06 09:45:00 Outpatient R ERASMO DE SOUZA [facility] [id number] [facility] 2021-03-28 09:30:00 2021-03-28 09:30:00 Outpatient R RADHA JONES [facility] [id number] [facility] 2021-03-06 13:00:00 2021-03-06 13:00:00 Outpatient THANH ROGERS [facility] [id number] [facility] 2021-02-28 08:45:00 2021-02-28 08:45:00 Outpatient THANH ROGERS [facility] [facility] [id number] [facility] 2021-02-27 14:15:00 2021-02-27 14:15:00 Outpatient R RADHA JON[facility] [id number] [facility] 2021-02-21 13:15:00 2021-02-21 13:15:00 Outpatient THANH ROGERS [facility] [id number] [facility] 2021-02-21 13:15:00 2021-02-21 13:15:00 Outpatient THANH ROGERS [facility] [id number] [facility] 2020-02-29 09:00:00 2020-02-29 09:00:00 Outpatient THANH ROGERS [facility] [id number] [facility] 2020-01-04 11:20:00 2020-01-04 11:20:00 Outpatient Sharron [facility] [id number] [facility] 2019-11-16 09:00:00 2019-11-16 09:00:00 Outpatient Shraron [facility] [id number] [facility] Results Test Description Test Time Test Comments Results Result Co mments Source [facility] [id number] 13:36:00* Test Item Value Reference Range Interpretation Comme nts POCT PREG (test code = 1605) Negative On board controls acceptable with C Line (test code = 3574) Yes POCT PREG LOT # (test code = 3575) POCT PREG TEST DATE ( test code = 3576) [facility] - Peripheral # [id number] 14:19:02* Test Item Value Reference Range Interpretation Comme nts Blood Culture-Aerobic (test code = 47742-1) Culture positive. See Blood Culture Workup for additional information. No growth AA Previous preliminary verified result was Culture In Progress on 08/09/2022 at 0552 [employer] Blood Culture-Anaerobic (test code = 04382-3) Culture positive. See Blood Culture Workup for additional information. No growth AA Previous preliminary verified result was Culture In Progress on 08/08/2022 at 2001 [employer] Lab Interpretation (test code = 68034-3) Abnormal [facility] - Peripheral # [id number] 14:18:57* Test Item Value Reference Range Interpretation Comme nts Blood Culture-Aerobic (test code = 05749-2) Culture positive. See Blood Culture Workup for additional information. No growth AA Gram negative bacilli Previous preliminary verified result was Culture In Progress on 08/09/2022 at 0553 [employer] Blood Culture-Anaerobic (test code = 96140-7) Culture positive. See Blood Culture Workup for additional information. No growth AA Previous preliminary verified result was Culture In Progress on 08/08/2022 at 2001 [employer] Lab Interpretation (test code = 25652-7) Abnormal [facility] NEGATIVE BLOOD PATHOGENS DNA [id number] 22:17:33* Test Item Value Reference Range Interpretation Comme nts Escherichia coli (test code = 75660-7) Positive Negative, See Comment/Narrative A SHER (test code = SHER) See blood culture result for additional information. ?Testing included eight identification and six resistance marker targets. Lab Interpretation (test code = 58250-3) Abnormal [facility] Resources[facility] with [id number] 11:22:52* Test Item Value Reference Range Interpretation Comme nts WBC (test code = 6690-2) See_Comment H [Automated messa ge] The system which generated this result transmitted reference range: 4.30 - 11.10 10*3/?L. The reference range was not used to interpret this result as normal/abnormal. RBC (test code = 789-8) See_Comment L [Automated messa ge] The system which generated this result transmitted reference range: 3.93 - 5.25 10*6/?L. The reference range was not used to interpret this result as normal/abnormal. HGB (test code = 718-7) 12.1 g/dL 11.6-15.0 HCT (test code = 4544-3) 38.3 % 35.7-45.2 MCV (test code = 787-2) 98.7 fL 80.6-95.5 H MCH (test code = 785-6) 31.2 pg 25.9-32.8 MCHC (test code = 786-4) 31.6 g/dL 31.6-35.1 RDW-SD (test code = 96061-1) 49.5 fL 39.0-49.9 RDW-CV (test code = 788-0) 13.5 % 12.0-15.5 PLT (test code = 777-3) See_Comment [Automated [employer] ge] The system which generated this result transmitted reference range: 166 - 358 10*3/?L. The reference range was not used to interpret this result as normal/abnormal. MPV (test code = 28232-0) 13.2 fL 9.5-12.9 H IPF % (test code = 1219505855) 10.8 % 1.3-7.7 H Platelet count measured by fluorescence method. NRBC/100 WBC (test code = 6500778823) See_Comment [Automated Formabilio ssage] The system which generated this result transmitted reference range: 0.0 - 10.0 /100 WBCs. The reference range was not used to interpret this result as normal/abnormal. NRBC x10^3 (test code = 5675557290) See_Comment [Automated [employer] ge] The system which generated this result transmitted reference range: 10*3/?L. The reference range was not used to interpret this result as normal/abnormal. GRAN MAT (NEUT) % (test code = 770-8) 79.7 % IMM GRAN % (test code = 0753831183) 0.80 % LYMPH % (test code = 736-9) 8.7 % MONO % (test code = 5905-5) 10.6 % EOS % (test code = 713-8) 0.0 % BASO % (test code = 706-2) 0.2 % GRAN MAT x10^3(ANC) (test code = 4744025013) 14.06 10*3/uL 1.88-7.09 H IMM GRAN x10^3 (test code = 9668253416) 0.15 10*3/uL 0.00-0.06 H LYMPH x10^3 (test code = 731-0) 1.54 10*3/uL 1.32-3.29 MONO x10^3 (test code = 742-7) 1.88 10*3/uL 0.33-0.92 H EOS x10^3 (test code = 711-2) 0.03-0.39 L BASO x10^3 (test code = 704-7) 0.03 10*3/uL 0.01-0.07 Lab Interpretation (test code = 10617-8) Abnormal [facility] Metabolic Panel (NA, K, CL, CO2, GLUCOSE, BUN, CREATININE, CA)2022-08-09 10:46:28* Test Item Value Reference Range Interpretation Comme nts NA (test code = 5531822263) 140 mmol/L 135-145 K (test code = 7475069171) 4.0 mmol/L 3.5-5.0 CL (test code = 7179201576) 107 mmol/L 98-108 CO2 TOTAL (test code = 9028170370) 28 mmol/L 23-31 AGAP (test code = 0925147485) 2-16 BUN (test code = 0293530619) 13 mg/dL 7-23 GLUCOSE (test code = 6683317059) 127 mg/dL 70-110 H CREATININE (test code = 6521692391) 0.69 mg/dL 0.50-1.04 CALCIUM (test code = 9165491903) 8.5 mg/dL 8.6-10.6 L eGFR (test code = 2795619719) mL/min/1.73m2 SHER (test code = SHER) Association of [...] or abnormalities in imaging tests). Lab Interpretation (test code = 62045-3) Abnormal [facility] [id number] 18:08:00* Test Item Value Reference Range Interpretation Comme nts POCT PREG (test code = 1605) NEGATIVE On board controls acceptable with C Line (test code = 3574) PRESENT POCT PREG LOT # (test code = 3575) [id number] POCT PREG TEST DATE ( test code = 3576) 11/29/2023 Lab Interpretation (test cod e = 24504-5) Normal [facility] WITH [id number] 05:15:16* Test Item Value Reference Range Interpretation Comme nts WBC (test code = 6690-2) See_Comment [Automated [employer] ge] The system which generated this result transmitted reference range: 4.30 - 11.10 10*3/?L. The reference range was not used to interpret this result as normal/abnormal. RBC (test code = 789-8) See_Comment [Automated [employer] ge] The system which generated this result transmitted reference range: 3.93 - 5.25 10*6/?L. The reference range was not used to interpret this result as normal/abnormal. HGB (test code = 718-7) 12.6 g/dL 11.6-15 HCT (test code = 4544-3) 39.7 % 35.7-45.2 MCV (test code = 787-2) 98.8 fL 80.6-95.5 H MCH (test code = 785-6) 31.3 pg 25.9-32.8 MCHC (test code = 786-4) 31.7 g/dL 31.6-35.1 RDW-SD (test code = 03596-6) 50.1 fL 39-49.9 H RDW-CV (test code = 788-0) 13.7 % 12-15.5 PLT (test code = 777-3) See_Comment [Automated messa ge] The system which generated this result transmitted reference range: 166 - 358 10*3/?L. The reference range was not used to interpret this result as normal/abnormal. MPV (test code = 52623-9) 12.8 fL 9.5-12.9 NRBC/100 WBC (test code = 0137395404) See_Comment [Automated Formabilio ssage] The system which generated this result transmitted reference range: 0.0 - 10.0 /100 WBCs. The reference range was not used to interpret this result as normal/abnormal. NRBC x10^3 (test code = 3204240016) See_Comment [Automated messa ge] The system which generated this result transmitted reference range: 10*3/?L. The reference range was not used to interpret this result as normal/abnormal. GRAN MAT (NEUT) % (test code = 770-8) 61.6 % IMM GRAN % (test code = 5062933227) 0.20 % LYMPH % (test code = 736-9) 28.8 % MONO % (test code = 5905-5) 7.8 % EOS % (test code = 713-8) 1.3 % BASO % (test code = 706-2) 0.3 % GRAN MAT x10^3(ANC) (test code = 9077385462) 6.85 10*3/uL 1.88-7.09 IMM GRAN x10^3 (test code = 6379984438) 0-0.06 LYMPH x10^3 (test code = 731-0) 3.19 10*3/uL 1.32-3.29 MONO x10^3 (test code = 742-7) 0.86 10*3/uL 0.33-0.92 EOS x10^3 (test code = 711-2) 0.14 10*3/uL 0.03-0.39 BASO x10^3 (test code = 704-7) 0.03 10*3/uL 0.01-0.07 Lab Interpretation (test code = 41283-2) Abnormal [facility] WITH [id number] 05:15:16* Test Item Value Reference Range Interpretation Comme nts WBC (test code = 6690-2) See_Comment [Automated messa ge] The system which generated this result transmitted reference range: 4.30 - 11.10 10*3/?L. The reference range was not used to interpret this result as normal/abnormal. RBC (test code = 789-8) See_Comment [Automated messa ge] The system which generated this result transmitted reference range: 3.93 - 5.25 10*6/?L. The reference range was not used to interpret this result as normal/abnormal. HGB (test code = 718-7) 12.6 g/dL 11.6-15 HCT (test code = 4544-3) 39.7 % 35.7-45.2 MCV (test code = 787-2) 98.8 fL 80.6-95.5 H MCH (test code = 785-6) 31.3 pg 25.9-32.8 MCHC (test code = 786-4) 31.7 g/dL 31.6-35.1 RDW-SD (test code = 22132-2) 50.1 fL 39-49.9 H RDW-CV (test code = 788-0) 13.7 % 12-15.5 PLT (test code = 777-3) See_Comment [Automated messa ge] The system which generated this result transmitted reference range: 166 - 358 10*3/?L. The reference range was not used to interpret this result as normal/abnormal. MPV (test code = 58968-1) 12.8 fL 9.5-12.9 NRBC/100 WBC (test code = 1032919684) See_Comment [Automated Formabilio ssage] The system which generated this result transmitted reference range: 0.0 - 10.0 /100 WBCs. The reference range was not used to interpret this result as normal/abnormal. NRBC x10^3 (test code = 0253691789) See_Comment [Automated messa ge] The system which generated this result transmitted reference range: 10*3/?L. The reference range was not used to interpret this result as normal/abnormal. GRAN MAT (NEUT) % (test code = 770-8) 61.6 % IMM GRAN % (test code = 2917950345) 0.20 % LYMPH % (test code = 736-9) 28.8 % MONO % (test code = 5905-5) 7.8 % EOS % (test code = 713-8) 1.3 % BASO % (test code = 706-2) 0.3 % GRAN MAT x10^3(ANC) (test code = 3894770087) 6.85 10*3/uL 1.88-7.09 IMM GRAN x10^3 (test code = 0102683720) 0-0.06 LYMPH x10^3 (test code = 731-0) 3.19 10*3/uL 1.32-3.29 MONO x10^3 (test code = 742-7) 0.86 10*3/uL 0.33-0.92 EOS x10^3 (test code = 711-2) 0.14 10*3/uL 0.03-0.39 BASO x10^3 (test code = 704-7) 0.03 10*3/uL 0.01-0.07 Lab Interpretation (test code = 86194-4) Abnormal [facility]"
[2023-12-23] MEDS ORDERED: ACETAMINOPHEN 500 MG TAB ONE (15:26)
[2023-12-23] MEDS ORDERED: CYCLOBENZAPRINE 10 MG TAB ONE (15:27)
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
[2023-12-23 17:22] VITALS: BP 118/88; TEMP 97.6; O2SAT 100
== END 2023-12-23 16:53 | disposition home or self-care (01) ==
LOC: ER 15:03
DX: M54.2 Cervicalgia (principal); M54.9 Dorsalgia, unspecified; V49.49XA Driver injured in collision with other motor vehicles in traffic accident, initial encounter
CPT/HCPCS: 72040; 72100